=== PATIENT | female | born 1950 | race Hispanic/Latino ===

== ENCOUNTER 2018-10-08 11:14 | Emergency (ER) | payer OTHER ==
[~2018-10-08] VITALS: Ht 154.9 cm; Wt 69.4 kg
[2018-10-08 12:11] LABS: BASOPHILS # (AUTO) 0.1 (0.0-0.1); BASOPHILS % 0.6 % (0.0-1.0); EOSINOPHILS # (AUTO) 0.3 (0.0-0.4); EOSINOPHILS % 2.6 % (0.0-6.0); HEMATOCRIT 44.4 % (34.2-44.1); HEMOGLOBIN 14.3 g/dL (12.0-16.0); LYMPHOCYTES # (AUTO) 2.9 (1.0-3.2); LYMPHOCYTES % 28.6 % (18.0-39.1); MEAN CORPUSCULAR HEMOGLOBIN 28.4 pg (28-32); MEAN CORPUSCULAR HGB CONC 32.2 g/dL (31-35); MEAN CORPUSCULAR VOLUME 88.1 fL (81-99); MONOCYTES # (AUTO) 0.4 (0.2-0.8); MONOCYTES % 3.9 % (4.4-11.3); NEUTROPHILS # (AUTO) 6.5 (2.1-6.9); NEUTROPHILS % 63.9 % (38.7-80.0); PLATELET COUNT 322 x10e3/uL (140-360); RED BLOOD COUNT 5.04 x10e6/uL (3.6-5.1); RED CELL DISTRIBUTION WIDTH 14.7 % (11.7-14.4)
[2018-10-08 12:15] LABS: CLARITY,URINE HAZY (CLEAR); COLOR,URINE YELLOW (YELLOW); LEUKOCYTE ESTERASE ,URINE NEGATIVE (NEGATIVE)
[2018-10-08 12:16] LABS: BILIRUBIN,URINE NEGATIVE (NEGATIVE); KETONES,URINE NEGATIVE (NEGATIVE); NITRITE,URINE NEGATIVE (NEGATIVE); PROTEIN,URINE DIPSTICK 1+ (NEGATIVE); URINE UROBILINOGEN 0.2 mg/dL (0.2 - 1)
[2018-10-08 12:22] LABS: BACTERIA,URINE FEW /HPF; EPITHELIAL CELLS,URINE MODERATE /LPF; MUCUS,URINE FEW (RARE); RBC,URINE 0-5 /HPF (0-5)
[2018-10-08 12:25] LABS: ALANINE AMINOTRANSFERASE 32 IU/L (0-55); ALBUMIN 3.9 g/dL (3.5-5.0); ALKALINE PHOSPHATASE 101 IU/L (40-150); ANION GAP 14.9 mmol/L (8-16); BLOOD UREA NITROGEN 13 mg/dL (7-26); BUN/CREATININE RATIO 17 (6-25); CALCIUM 9.3 mg/dL (8.4-10.2); CARBON DIOXIDE 23 mmol/L (22-29); CHLORIDE 105 mmol/L (98-107); CREATININE, SERUM 0.76 mg/dL (0.57-1.11); EST GLOMERULAR FILTRATION RATE > 60 ML/MIN (60-); GLUCOSE 167 mg/dL (74-118); MAGNESIUM 2.1 MG/DL (1.3-2.1); POTASSIUM 3.9 mmol/L (3.5-5.1); SODIUM 139 mmol/L (136-145)
[2018-10-08] MEDS ORDERED: ONDANSETRON HCL INJ 2MG/ML 2ML 2 MG/ML VIAL IV ONE (13:00)
[2018-10-08 13:01] LABS: CREATINE KINASE 107 IU/L (29-168)
[2018-10-08] MEDS ORDERED: CEFDINIR300 MG PO (13:25)
== END 2018-10-08 14:08 | disposition home or self-care (01) ==
LOC: ER 11:14
DX: T78.40XA Allergy, unspecified, initial encounter (principal); F41.1 Generalized anxiety disorder; N30.90 Cystitis, unspecified without hematuria
CPT/HCPCS: 36415; 80053; 81001; 82550; 82553; 83735; 84484; 85025; 93005; 99284; J2405

== ENCOUNTER 2019-02-03 21:57 | Inpatient (IN) | payer MEDICARE, OTHER ==
[~2019-02-03] VITALS: Ht 154.9 cm; Wt 75.4 kg
[~2019-02-03 21:57] MED LIST: CEFDINIR300 MG PO
--- OUTSIDE RECORDS SUMMARY | 2019-02-03 21:59 | XMS REPORT ---
[facility] Address Unknown Phone Unavailable Care Team Providers Care M48/M60 Tank Driver Name Role Phone Unavailable Unavailable Payers Payer Name Policy Type Policy Number Effective Date Expiration Date Problems This patient has no known problems. Allergies, Adverse Reactions, Alerts Allergy Name Allergy Type Status Severity Reaction(s) Onset Date Inactive Date Treating Clinician Comments iodine DA Active MO 2018-01-29 00:00:00 iodine DA Active MO 2015-01-12 00:00:00 Medications This patient has no known medications. Results Test Description Test Time Test Comments Text Results Atomic Results Result Comments GASTRIC,BIOPSY 2018-02-03 15:57:00 RUN DATE: 02/03/18 [facility] - Lab PAGE 1 RUN TIME: 1557 Specimen Inquiry RUN USER: INTERFACE PATIENT: DEEPA CASAREZ LOC: [facility] U #: [id number] AGE/SX: 68/F ROOM: [facility] RE01/31/18REG DR: Hung Aguilar MD : 51 BED: A DIS: 02/02/18 STATUS: DIS IN TLOC: SPEC #: [id number] RECD: 02/02/18 STATUS: SOU RE #: [id number] SHARDA: 02/01/18-[address] [facility] [address]: Kofi Brantley MD ENTERED: 02/02/18 SP TYPE: GASTRIC BX OTHR DR: Erick Hardy MD, Harry Silvio MDORDERED: GROSS COPIES TO: Erick Hardy MD [address] [facility] [place] [address] Kofi Brantley MD [address] [address] PROCEDURES: GROSS (02/03/18-9292) TISSUES: 1. ANTRUM - BX 2. BODY BIOPSY OF STOMACH 3. ESOPHAGUS, NOS CLINICAL HISTORY COLLECTION DATE: 02/01/18 EPIGASTRIC PAIN, VOMITING FINAL DIAGNOSIS Antrum, biopsy: ACUTE GASTRITIS NO INTESTINAL METAPLASIA SEEN NEGATIVE FOR HELICOBACTER PYLORI, GIEMSA CONTROL STAINS APPROPRIATELY NEGATIVE FOR MALIGNANCY Body of stomach, biopsy: MILD CHRONIC INFLAMMATION, GASTRIC MUCOSA NO INTESTINAL METAPLASIA SEEN NEGATIVE FOR HELICOBACTER PYLORI, GIEMSA CONTROL STAINS APPROPRIATELY NEGATIVE FOR MALIGNANCY Esophagus, biopsy: REACTIVE EPITHELIAL CHANGES, SQUAMOUS ESOPHAGEAL MUCOSA CONTINUED ON NEXT PAGE RUN DATE: 02/03/18 [facility] PAGE 2 RUN TIME: 1557 Specimen Inquiry RUN USER: INTERFACE SPEC #: [id number] PATIENT: DEEPA CASAREZ #[id number] (Continued) FINAL DIAGNOSIS (Continued) NEGATIVE FOR METAPLASIA, DYSPLASIA, AND MALIGNANCY [facility]/paulino Horton [id number], [id number] MACROSCOPIC Specimen (1) is received in formalin, labeled with the patient's name, identified as "antrum bx", and consists of pink-santiago biopsy tissue measuring 0.35 cm, each, entirely submitted as (1) for H E and giemsa stains. Specimen (2) is received in formalin, labeled with the patient's name, identified as "body of stomach", and consists of three fragments of santiago biopsy tissue ranging from 0.3 to 0.6 cm each, entirely submitted as (2) for H E and giemsa stains. Specimen (3) is received in formalin, labeled with the patient's name, identified as "esophagus bx", and consists of light santiago to brown biopsy tissue measuring 0.5 cm in aggregate, entirely submitted as (3). GROSS PERFORMED AT [facility] [address] [place] [address], [place] [address] (p)[phone] MICROSCOPIC MICROSCOPIC PERFORMED AT [facility] All of the stains, including any controls performed, stain appropriately. [facility] [address] [facility] [place] [address] (P)[phone] PERFORMING SITE Diagnosis performed at: [facility], [address] [place] [address] CONTINUED ON NEXT PAGE RUN DATE: 02/03/18 [facility] - Lab PAGE 3 RUN TIME: 1557 Specimen Inquiry RUN USER: INTERFACE SPEC #: [id number] PATIENT: DEEPA CASAREZ #[id number] (Continued) Signed SIGNATURE ON FILE QuesadaСветлана M 02/03/18 1557 --------- END OF REPORT
[2019-02-03] MEDS ORDERED: METOPROLOL TARTRATE INJ 1 MG/ML VIAL IV ONE ×2 (22:30→23:00)
[2019-02-03 22:52] LABS: BASOPHILS # (AUTO) 0.1 (0.0-0.1); BASOPHILS % 0.7 % (0.0-1.0); EOSINOPHILS # (AUTO) 0.5 (0.0-0.4); EOSINOPHILS % 5.3 % (0.0-6.0); HEMATOCRIT 41.7 % (34.2-44.1); HEMOGLOBIN 13.4 g/dL (12.0-16.0); LYMPHOCYTES % 33.9 % (18.0-39.1); MEAN CORPUSCULAR HEMOGLOBIN 27.9 pg (28-32); MEAN CORPUSCULAR HGB CONC 32.1 g/dL (31-35); MEAN CORPUSCULAR VOLUME 86.9 fL (81-99); MONOCYTES # (AUTO) 0.7 (0.2-0.8); MONOCYTES % 7.3 % (4.4-11.3); NEUTROPHILS # (AUTO) 4.7 (2.1-6.9); NEUTROPHILS % 52.5 % (38.7-80.0); PLATELET COUNT 343 x10e3/uL (140-360); RED CELL DISTRIBUTION WIDTH 15.8 % (11.7-14.4)
--- NOTE | 2019-02-03 22:53 | Diagnostic Imaging Report ---
EXAMINATION: Head CT without contrast. HISTORY:Right eye drooping. COMPARISON:None. TECHNIQUE: Multidetector axial images were obtained from the foramen magnum to the vertex without contrast. The images were reconstructed using brain and bone algorithms. Thin section brain images were reformatted into coronal and sagittal planes. Dose modulation, iterative reconstruction, and/or weight based adjustment of the mA/kV was utilized to reduce the radiation dose to as low as reasonably achievable. Intravenous contrast: None IMAGE QUALITY: Suboptimal evaluation due to motion related artifacts. FINDINGS: Skull/scalp: No lytic or blastic. lesions. No surgical changes. Parenchyma: Nonspecific few, scattered supratentorial white matter hypodensity are likely related to small vessel ischemic changes. No acute hemorrhage, mass or acute major vascular territorial infarct. Arteries: No density suggestive of thrombosis. Dural sinuses: No abnormal density suggestive of thrombosis. Ventricles: No hydrocephalus or displacement. Extra-axial spaces: No abnormal density. Brain volume: Normal for age. Craniocervical junction: No mass, Chiari malformation, or basilar invagination. Sella: No mass. Paranasal/mastoid sinuses: Mild mucosal thickening in left sphenoid sinus. IMPRESSION: Suboptimal evaluation due to motion artifacts, despite the limitation no gross acute intracranial abnormality. Mild supratentorial white matter microvascular ischemic changes. Signed by: Dr. Betty Baker M.D. on 02/03/2019 10:50 PM
[2019-02-03 22:58] LABS: INR 0.83; PROTHROMBIN TIME 11.9 seconds (11.9-14.5)
[2019-02-03] MEDS ORDERED: METOPROLOL TARTRATE INJ 1 MG/ML VIAL ONE (22:58)
[2019-02-03 23:06] LABS: ALANINE AMINOTRANSFERASE 39 IU/L (0-55); ALBUMIN 3.8 g/dL (3.5-5.0); ALBUMIN/GLOBULIN RATIO 0.9 (0.8-2.0); ALKALINE PHOSPHATASE 146 IU/L (40-150); ANION GAP 15.9 mmol/L (8-16); BLOOD UREA NITROGEN 18 mg/dL (7-26); BUN/CREATININE RATIO 23 (6-25); CALCIUM 9.9 mg/dL (8.4-10.2); CARBON DIOXIDE 25 mmol/L (22-29); CHLORIDE 107 mmol/L (98-107); CREATININE, SERUM 0.79 mg/dL (0.57-1.11); EST GLOMERULAR FILTRATION RATE > 60 ML/MIN (60-); GLUCOSE 127 mg/dL (74-118); POTASSIUM 3.9 mmol/L (3.5-5.1); SODIUM 144 mmol/L (136-145)
--- NOTE | 2019-02-03 23:25 | NUR ---
PT DENIES ANY PAIN OR DISCOMFORT, REMAINS AAOX3, ATTACHED TO BS/CARDIAC MONITORS; DISPO ADMIT
[2019-02-03] MEDS ORDERED: SODIUM CHLORIDE 0.9% 100 ML 100 ML ONE (23:31)
[2019-02-03] MEDS ORDERED: GADOBENATE DIMEGLUMINE 1 ML IV ONE (23:31)
[2019-02-04] VITALS (9 sets, daily range): BP systolic 131–196; BP diastolic 57–88
[2019-02-04] MEDS ORDERED: METOPROLOL TARTRATE 25 MG TAB PO ONE (00:45)
--- NOTE | 2019-02-04 00:51 | Diagnostic Imaging Report ---
History: Dizziness, right eye droop for 2 days. Comparison studies: CT brain from earlier the same day. Technique: Pre-contrast: Sagittal T2; axial T1, T2, GRE, DWI, T2 FLAIR Post-contrast: axial , sagittal and coronal T1. Intravenous contrast: 14 cc of MultiHance Findings: Scalp: No abnormal signal. No masses. Bone marrow: Normal in signal intensity. Brain sulci: Appropriate for age. Ventricles: Normal in size . No hydrocephalus. Parenchyma: Focal restricted diffusion associated with T2/FLAIR hyperintensity in right paramedian aspect of the midbrain at the level of superior colliculus in the right periaqueductal poole matter, represents acute lacunar infarct. Nonspecific bilateral frontoparietal confluent and patchy periventricular, subcortical and deep white matter T2/FLAIR hyperintense foci are likely related to small vessel ischemic changes. No masses or acute hemorrhage. No abnormal enhancement. Suprasellar region: No abnormalities. Craniocervical junction: Patent foramen magnum. No Chiari one malformation. Vessels: Normal flow-voids in the arteries and sinuses. Incidental findings: Mild T2 hyperintense mucosa in left sphenoid sinus. IMPRESSION: 1. Acute lacunar infarct in the midbrain (right periaqueductal poole matter in the region of the oculomotor nucleus). 2. Mild supratentorial white matter microvascular ischemic changes. Findings discussed with ER physician Dr. Soria by phone at 12:40 AM on 02/04/2019. Signed by: Dr. Betty Baker M.D. on 02/04/2019 12:48 AM
--- NOTE | 2019-02-04 01:45 | NUR ---
Patient's blood pressure elevated on arrival to floor. Oral antihypertensives given in ED just prior to patient arrival on unit.
[2019-02-04] MEDS ORDERED: OMEPRAZOLE40 MG (04:09)
[2019-02-04] MEDS ORDERED: SYMBICORT 16010.2 GM (04:11)
[2019-02-04] MEDS ORDERED: ATORVASTATIN CA10 MG PO (04:12)
[2019-02-04] MEDS ORDERED: HYDRALAZINE HCL 20 MG/ML VIAL IV PRN (05:30)
[2019-02-04] MEDS ORDERED: LOPRESSOR25 MG PO (05:37)
[2019-02-04] MEDS ORDERED: ASPIRIN CHEW81 MG PO (05:37)
[2019-02-04 06:15] LABS: CHOL/HDL RATIO 3.1 (3.0-3.6); CHOLESTEROL 149 MD/DL (0-199); HDL CHOLESTEROL 48 MG/DL (40-60); LDL CHOLESTEROL 73 MG/DL (60-130); TRIGLYCERIDES 141 MG/DL (0-149)
[2019-02-04 06:27] LABS: B-TYPE NATRIURETIC PEPTIDE2 11.3 pg/mL (0-100); BASOPHILS # (AUTO) 0.1 (0.0-0.1); BASOPHILS % 0.6 % (0.0-1.0); EOSINOPHILS # (AUTO) 0.5 (0.0-0.4); EOSINOPHILS % 6.1 % (0.0-6.0); HEMATOCRIT 37.5 % (34.2-44.1); LYMPHOCYTES # (AUTO) 2.9 (1.0-3.2); LYMPHOCYTES % 36.2 % (18.0-39.1); MEAN CORPUSCULAR HEMOGLOBIN 27.9 pg (28-32); MEAN CORPUSCULAR VOLUME 87.2 fL (81-99); MONOCYTES # (AUTO) 0.6 (0.2-0.8); MONOCYTES % 6.9 % (4.4-11.3); NEUTROPHILS % 49.8 % (38.7-80.0); PLATELET COUNT 292 x10e3/uL (140-360)
[2019-02-04 06:40] LABS: FREE T4 (FREE THYROXINE) 0.96 ng/dL (0.8-1.8); THYROID STIMULATING HORMONE 2.934 uIU/mL (0.350-4.940)
[2019-02-04 07:00] LABS: ALANINE AMINOTRANSFERASE 31 IU/L (0-55); ALBUMIN 3.2 g/dL (3.5-5.0); ALBUMIN/GLOBULIN RATIO 0.9 (0.8-2.0); ALKALINE PHOSPHATASE 125 IU/L (40-150); ANION GAP 13.8 mmol/L (8-16); BLOOD UREA NITROGEN 18 mg/dL (7-26); BUN/CREATININE RATIO 25 (6-25); CALCIUM 9.1 mg/dL (8.4-10.2); CARBON DIOXIDE 27 mmol/L (22-29); CHLORIDE 107 mmol/L (98-107); CREATININE, SERUM 0.73 mg/dL (0.57-1.11); EST GLOMERULAR FILTRATION RATE > 60 ML/MIN (60-); GLUCOSE 134 mg/dL (74-118); POTASSIUM 3.8 mmol/L (3.5-5.1); SODIUM 144 mmol/L (136-145)
[2019-02-04] MEDS: ASPIRIN 81 MG CHEW TAB PO SCH (08:27)
[2019-02-04] MEDS: PANTOPRAZOLE SOD 40 MG TABEC PO SCH (08:27)
--- NOTE | 2019-02-04 08:53 | NUR ---
PT RESTING. ABLE TO MAKE NEEDS KNOWN. PT RIGHT EYE IS DROOPED. STATES SHE CAN SEE OUT OF IT AND NO PAIN, IS ABLE TO BLINK. BUT IS UNEVEN WITH OTHER EYE, CAUSING BLURRY FEELING.
[2019-02-04] MEDS ORDERED: METOPROLOL TARTRATE 25 MG TAB PO SCH (09:00)
--- NOTE | 2019-02-04 13:16 | NUR ---
DR RAMOS ON UNIT, AWARE OF PT BP
--- NOTE | 2019-02-04 15:35 | NUR ---
Received order for outpatient occupational therapy. Spoke to pt and family at bedside. They gave choice for [facility]. Choice letter signed and placed in chart. Copy to pt's son. Pt states she prefers the [facility] location at [address] [place] [address]. Referral was faxed to [phone] Contact information for [facility] given to pt's son and instructed him to follow up with them on Wednesday. He acknowledged.
[2019-02-04] MEDS: ENOXAPARIN SOD INJ 40 MG/0.4 ML SYR SC SCH (16:31)
[2019-02-04] MEDS ORDERED: ATORVASTATIN 10 MG TAB PO SCH (21:00)
--- NOTE | 2019-02-04 21:29 | Consultation ---
DATE OF CONSULTATION: 02/04/2019 Neurology Consult Note HISTORY OF PRESENT ILLNESS: Ms. Pond is a 69-year-old right-hand dominant woman with past medical history significant for hyperlipidemia and recently diagnosed hypertension, admitted to [facility] on February 03, 2019, following a stroke. Approximately, 3 days prior to admission, the patient experienced the abrupt onset of binocular diplopia. Ms. Pond reports anything she looked that was duplicated on the diagonal. The diplopia resolved with covering one eye or the other. At that time, Ms. Pond noted drooping of the right eyelid. She did not notice impairments of eye movement. Along with binocular diplopia, the patient reports poor balance, impairment of gait, and dizziness, which is further described as an unsteady sensation. The patient does not report dysarthria, aphasia, facial droop, hemiparesis, hemihypesthesia, or confusion associated with the above symptoms. Ms. Pond does have a history of chronic intermittent vertigo. She assumed her symptoms were due to an exacerbation of vertigo and would spontaneously resolve after a day or two. When the symptoms did not improve, the patient proceeded to a [facility] for further evaluation of her symptoms. Upon arrival in the [facility], the patient was afebrile with a markedly elevated blood pressure of 222/92 mmHg and a pulse of 91 beats per minute. The patient's physical examination was significant for dysconjugate gaze with extraocular movements not intact in the right eye. While at the [facility], the patient underwent a MRI of the brain without contrast, which revealed an acute ischemic stroke in the midbrain. More specifically, the ischemic infarct was located in the right periaqueductal poole matter near the oculomotor nucleus. Ms. Pond was subsequently transported to [facility], where she was directly admitted as an inpatient for further evaluation and treatment of her symptoms. Ms. Pond does not routinely take an antiplatelet or anticoagulant medication. REVIEW OF SYSTEMS: Binocular diplopia, impairment of balance and gait, dizziness. Otherwise, a 12- point review of systems is negative. PAST MEDICAL HISTORY: Hypertension, hyperlipidemia, asthma, and gastroesophageal reflux disease. PAST SURGICAL HISTORY: Hysterectomy, lumpectomy behind the left ear, and tonsillectomy. PAST HOSPITALIZATIONS: Surgeries/procedures as listed, Emergency Center at [facility] for an allergic reaction. FAMILY MEDICAL HISTORY: The patient's mother is ; she had hypertension, diabetes mellitus, and coronary artery disease with a myocardial infarction. The patient has one son with diabetes mellitus. SOCIAL HISTORY: Ms. Pond is single. She is retired. She does not report current or prior tobacco, alcohol, or recreational drug use. HOME MEDICATIONS: Atorvastatin 10 mg by mouth at bedtime daily, Symbicort 160- 4.5 inhaled twice daily, omeprazole 40 mg by mouth daily. Of note, the patient was recently prescribed losartan for hypertension. However, she has not begun treatment with this medication. ALLERGIES: ALEVE, IBUPROFEN. NO KNOWN FOOD ALLERGIES. NO KNOWN ALLERGIES TO LATEX. THE PATIENT DOES HAVE A DOCUMENTED ALLERGY TO IODINE. PHYSICAL EXAMINATION: VITAL SIGNS: Height 61 inches, weight 153 pounds, BMI 28.9 kg/m2, blood pressure 187/83 mmHg, pulse 60 beats per minute, respiratory rate 20 breaths per minute, and oxygen saturation 97% on room air. GENERAL: The patient is awake and alert, does not appear distressed. Overweight. HEENT: Normocephalic, atraumatic. Pupils are unequal and round. The left pupil is briskly reactive to light. While the right pupil is sluggishly reactive to light. Moist mucous membranes. NECK: Supple. No appreciable thyromegaly. No appreciable carotid bruits. CARDIOVASCULAR: S1, S2, regular rate and rhythm. No murmurs, rubs, or gallops. RESPIRATORY: Clear to auscultation bilaterally. No wheezes, rhonchi, or rales. EXTREMITIES: The skin is warm and dry. No clubbing, cyanosis, or edema. The posterior tibial and dorsalis pedis pulses are 2+ and symmetric. SKIN: No rashes or lesions. NEUROLOGIC: Memory/Attention: The patient is awake and alert, oriented to person, place, time, and situation. Cranial Nerves: Cranial nerve I - not tested. Cranial nerve II, III, IV, and - the left pupil is round and briskly reactive to light (from 4 mm to 2 mm). The right pupil is 5 mm and sluggishly reactive to light. Extraocular movements are intact with the exception of a total right cranial nerve III palsy. No nystagmus. Cranial nerve V - sensation is to light touch and pinprick is intact in the bilateral V1 through V3 distributions. Strength in the temporalis and masseter muscles is within normal limits. Cranial nerve VII - the face is symmetric as are all facial movements. Strength is within normal limits. Cranial nerve VIII - hearing is intact to finger rub bilaterally. Cranial nerve IX, X - the soft palate elevates equally and symmetrically. Cranial nerve XI - normal strength of the bilateral sternocleidomastoid and trapezius muscles. Cranial nerve XII - the tongue protrudes midline and moves symmetrically from syve-hz-afgs. Strength: Bulk is normal. Strength is 5/5 in the bilateral deltoids, biceps, triceps, wrist flexors and extensors, finger flexors and extensors, intrinsic hand muscles, hip flexors, knee flexors and extensors, ankle dorsiflexion and plantar flexion, and intrinsic foot muscles. Tone is normal. DTRs: Deep tendon reflexes are 2+ and symmetric at the triceps, biceps, brachioradialis, patellas, and Achilles. Plantar responses are flexor bilaterally. Sensation: Sensation is intact to light touch and pinprick in both arms and both legs. Cerebellar: Ljsssq-rsei-otoajo and heel-velazco movements are intact without dysmetria or other impairment. Gait: Deferred. Speech: Spontaneous speech is normal without appreciable dysarthria or aphasia. Repetition is intact. Involuntary movements: None. Pronator Drift: None. LABORATORY DATA: A comprehensive metabolic panel is significant only for an elevated serum glucose of 134 and an albumin of 3.2. Total cholesterol 149, triglycerides 141, LDL cholesterol 73, HDL cholesterol 48. TSH 2.934, free T4 0.96. Hemoglobin A1c 6.1. B-natriuretic peptide 11.3. The CBC with differential and platelets reveals a white blood cell count of 8.07 with mild eosinophilia. The hemoglobin and hematocrit are 12.0 and 37.5, respectively. The platelet count is 292. The coagulation profile is within normal limits. DIAGNOSTIC STUDIES: CT of the brain without contrast on 02/03/2019: On my review, there is no evidence of recent large territorial ischemia or hemorrhage. There is no evidence of remote large territorial ischemia or hemorrhage. Cerebral volumes are appropriate for age. Their findings compatible with mild chronic small vessel ischemic disease. MRI of the brain without contrast on 02/03/2019: On my review, there is an acute lacunar infarct in the midbrain. More specifically, the lacunar infarct is in the right periaqueductal poole matter near the oculomotor nucleus. There is no evidence of remote large territorial ischemia or hemorrhage. Cerebral volumes are appropriate for age. Their findings compatible with [id number] chronic small-vessel ischemic disease. Electrocardiogram pending. Echocardiogram pending. Bilateral carotid artery ultrasound with Doppler on 02/04/2019: There is atherosclerosis without hemodynamically significant stenosis at the right carotid bulb. Flow is antegrade in the bilateral vertebral arteries. ASSESSMENT AND PLAN: Ms. 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 Specifically, the lacunar stroke is located in the right periaqueductal poole matter near the oculomotor nucleus. Other than deficits compatible with the cranial nerve III palsy, the patient's neurological examination is nonfocal. Her laboratory data and other diagnostic studies have been reviewed and are documented above. RECOMMENDATIONS: Are as follows: 1. An electrocardiogram and echocardiogram will be ordered to complete stroke evaluation. 2. The patient will be placed on telemetry to monitor for a paroxysmal arrhythmia predisposing her 2 cardiovascular events. 3. Continue aspirin 81 mg by mouth daily for stroke prophylaxis. 4. Allow permissive hypertension following a stroke. At present, the patient's goal systolic blood pressure is 160 to 200 mmHg. The goal diastolic blood pressure is 70 to 110 mmHg. Continue p.r.n. hydralazine. Monitor vital signs per unit protocol. The patient's blood pressure may be gradually normalized beginning on Tuesday, February 05, 2019. The goal blood pressure prior to discharge is less than 140/90 mmHg. 5. The patient's goal total cholesterol is less than 200 with LDL of less than 70. Ms. Pond has reached her cholesterol goals. Continue treatment with her home medication of atorvastatin 10 mg by mouth at bedtime daily. 6. The patient's goal hemoglobin A1c is less than 7.0. The patient is at goal. No further treatment is recommended. 7. Gastrointestinal prophylaxis with Protonix 40 mg by mouth daily. Deep venous thrombosis prophylaxis with Lovenox 40 mg subcutaneously daily. 8. As an outpatient, the patient will need a referral to Occupational Therapy at [facility] for treatment of her cranial nerve III palsy. In the interim, the patient should patch alternating eyes daily. Thank you for this consultation. I will continue to follow the patient while she remains in the hospital. TIME SPENT: 70 minutes. Liliana Hernandez MD CP/RICH /[id number] MTDD
[2019-02-05] VITALS: BP 148/60
[2019-02-05 04:00] VITALS: BP 140/68
[2019-02-05 07:27] VITALS: BP 140/68
[2019-02-05] MEDS: ASPIRIN 81 MG CHEW TAB PO SCH (08:56)
[2019-02-05] MEDS: PANTOPRAZOLE SOD 40 MG TABEC PO SCH (08:57)
[2019-02-05 12:07] VITALS: BP 172/77
--- NOTE | 2019-02-05 16:11 | NUR ---
reviewed dc instructions with pt, verbalized understanding. pending ride
[2019-02-05] MEDS: ENOXAPARIN SOD INJ 40 MG/0.4 ML SYR SC SCH (16:14)
[2019-02-05 17:00] VITALS: BP 166/72
--- NOTE | 2019-02-06 09:00 | NUR ---
Received call from [facility]. States they need physician signature for referral. She faxed referral form. Informed Dr. Hernandez that we need signature for outpatient referral. States CM can fax form to her office. [facility] faxed form to Dr. Hernandez's office at .
--- NOTE | 2019-02-07 13:41 | NUR ---
Received signature for referral form for outpatient therapy from Dr. Hernandez. Signed order for [facility] Outpatient therapy services faxed to [phone].
--- NOTE | 2019-02-08 09:04 | Discharge Summary ---
ADMISSION DIAGNOSES: 1. Right eye ptosis with diplopia secondary to cerebrovascular accident. 2. Hypertension. 3. Hypertensive emergency. 4. Hyperlipidemia. 5. Asthma. DISCHARGE DIAGNOSES: 1. Right eye ptosis with diplopia secondary to cerebrovascular accident. 2. Hypertension. 3. Hypertensive emergency. 4. Hyperlipidemia. 5. Asthma. 6. Cranial nerve III palsy. 7. Rule out urinary tract infection. 8. Acute lacunar infarct in the midbrain. PAST MEDICAL HISTORY: Hypertension, hyperlipidemia, asthma. PAST SURGICAL HISTORY: Hysterectomy. FAMILY HISTORY: The patient's son has diabetes. SOCIAL HISTORY: Noncontributory. HOSPITAL COURSE: This 69-year-old female admits with complaints of double vision that began 3 days ago. She noticed her right eyelid slowly closing over the last few days as well. In the ER, her double vision resolved. She denies focal weakness, dizziness, trouble with ambulation, and dysphagia. On admission, CT of the brain was done, which showed mild supratentorial white matter microvascular ischemic changes. MRI of the brain showed acute ocular infarct in the midbrain. Carotid Doppler showed no significant stenosis. Cardiology was consulted, who diagnosed the patient with right cranial nerve III palsy secondary to an ischemic stroke in the midbrain. The patient was started on metoprolol and aspirin daily and she is already taking Lipitor daily. The patient was given a referral to [facility] for rehab. Her blood pressure is under control on current medications. She will follow up with primary care in 1 to 2 weeks and [facility] as discussed. The patient understands discharge instructions and agrees to plan. Vital signs stable, the patient afebrile. Dictated by Tiffanie Tomas NP MD DONA Christianson/RICH /[id number]
== END 2019-02-05 17:59 | disposition home or self-care (01) | DRG 65 ==
LOC: ER 21:57 → ERHOLD 23:48 → MED/SURG 02-04 01:26
PROVIDERS: ADMIT Internal Medicine; ATTEND Internal Medicine
DX: I63.81 Other cerebral infarction due to occlusion or stenosis of small artery (principal); I16.1 Hypertensive emergency; N39.0 Urinary tract infection, site not specified; H53.2 Diplopia; H02.401 Unspecified ptosis of right eyelid; E78.5 Hyperlipidemia, unspecified; J45.909 Unspecified asthma, uncomplicated; H49.01 Third [oculomotor] nerve palsy, right eye; Z91.041 Radiographic dye allergy status; K21.9 Gastro-esophageal reflux disease without esophagitis
CPT/HCPCS: 36415; 70450; 70553; 80053; 80061; 83036; 83880; 84439; 84443; 85025; 85610; 93005; 93306; 93880; 96374; 99284; J0360; J1650

== ENCOUNTER → 2019-07-18 | Day surgery (SDC) | payer OTHER ==
[2019-07-12 14:25] LABS: BASOPHILS # (AUTO) 0.1 (0.0-0.1); BASOPHILS % 0.7 % (0.0-1.0); EOSINOPHILS # (AUTO) 0.3 (0.0-0.4); EOSINOPHILS % 3.5 % (0.0-6.0); HEMATOCRIT 37.9 % (34.2-44.1); HEMOGLOBIN 12.4 g/dL (12.0-16.0); LYMPHOCYTES # (AUTO) 2.1 (1.0-3.2); LYMPHOCYTES % 26.5 % (18.0-39.1); MEAN CORPUSCULAR HEMOGLOBIN 28.4 pg (28-32); MEAN CORPUSCULAR HGB CONC 32.7 g/dL (31-35); MEAN CORPUSCULAR VOLUME 86.9 fL (81-99); MONOCYTES # (AUTO) 0.6 (0.2-0.8); MONOCYTES % 6.8 % (4.4-11.3); PLATELET COUNT 319 x10e3/uL (140-360); RED BLOOD COUNT 4.36 x10e6/uL (3.6-5.1); RED CELL DISTRIBUTION WIDTH 14.9 % (11.7-14.4)
[~2019-07-18] MED LIST changes: +AMLODIPINE BESY10 MG PO; +ASPIRIN CHEW81 MG PO; +ATORVASTATIN CA10 MG PO; +FENTANYL CITRATE/PF 100MCG/2 ML INJ ONE; +LIDOCAINE HCL 2% LOCAL INJ 5 ML SDV VIAL INJ ONE; +LOPRESSOR25 MG PO; +LOSARTAN POTAS100 MG PO; +OMEPRAZOLE40 MG; +PROPOFOL IV EMULSION 10 MG/ML 20 ML VIAL ONE; +SINGULAIR10 MG PO; +SYMBICORT 16010.2 GM; +VIT D2 PO
--- OUTSIDE RECORDS SUMMARY | 2019-07-18 10:31 | XMS REPORT ---
Author Author Admin, [place] Organization Unknown Address Unknown Phone Unavailable PROBLEMS Condition Status Date Provider Notes Onychomycosis, toenails active Angeli Vick Colon cancer screening active Angeli Vick Mammogram yearly screening active Angeli Vick Annual exam active Angeli Vick Prediabetes active Angeli Vick Hyperlipidemia active Angeli Vick Hx of asthma active Angeli Vick History of stroke active [place] Ptosis of eyelid, right active [place] Essential hypertension active [place] ENCOUNTERS Date Type Provider Location Encounter Diagnosis - Ambulatory Encounter [facility] Encounter Angeli Vick Angeli Vick [facility] Practice UNK - Ambulatory Encounter Angeli Vick Angeli Vick Lanette Mena [facility] PrediabetesAnnual examMammogram yearly screeningColon cancer screeningOnychomycosis, toenails - Ambulatory Encounter Fax Status [facility] Services UNK - Ambulatory Encounter Fax Status [facility] Services UNK - Ambulatory Encounter Lanette Mena [facility] UNK - Ambulatory Encounter Angeli Vick Angeli Vick [facility] Practice UNK - Ambulatory Encounter Angeli Vick Angeli Vick [facility] UNK - Ambulatory Encounter Angeli Vicklon Mena [facility] UNK - Ambulatory Encounter Angeli Vicklon Hickman [facility] UNK - Ambulatory Encounter Angeli Mena [facility] Hx of asthmaHyperlipidemia - Ambulatory Encounter Janelle Mclean [facility] UNK - Ambulatory Encounter Fax Status [facility] Services UNK - Ambulatory Encounter Fax Status [facility] Services UNK - Ambulatory Encounter Fax Status [facility] Services UNK - Ambulatory Encounter [place] [facility] UNK - Ambulatory Encounter [place] [facility] Essential hypertensionPtosis of eyelid, rightHistory of stroke VITAL SIGNS No Information Available ALLERGIES Allergy Name Onset Date Reaction Criticality Status ZYRTEC High Criticality active IBUPROFEN High Criticality active IODINE High Criticality active REASON FOR REFERRAL Start Date - End Date Service - Mammogram - Screening - Other Referral - External - Ophthalmology - External RESULTS Date Observation Value Provider Reference Range Interpretation Location hemoglobin A1C, blood, as % of total hemoglobin 6.3 % [facility] 4.8-5.6 High " LDL cholesterol, serum 58 mg/dL [facility] 0-99 " very low density lipoproteins 24 mg/dL [facility] 5-40 " HDL cholesterol, serum 53 mg/dL [facility] >39 " triglyceride, serum, fasting 120 mg/dL [facility] 0-149 " cholesterol, serum 135 mg/dL [facility] 100-199 " alanine aminotransferase (SGPT), serum 34 1/L [facility] 0-32 High " aspartate aminotransferase (SGOT), serum 28 1/L [facility] 0-40 " alkaline phosphatase, serum 115 1/L [facility] 39-117 " bilirubin, serum, total 0.5 mg/dL [facility] 0.0-1.2 " albumin/globulin ratio, serum 1.4 [facility] 1.2-2.2 " globulin, serum 3.1 [facility] 1.5-4.5 " albumin, serum 4.4 g/dL [facility] 3.6-4.8 " protein, total, serum 7.5 g/dL [facility] 6.0-8.5 " calcium, serum 9.2 mg/dL [facility] 8.7-10.3 " carbon dioxide, venous blood 26 mmol/L [facility] 20-29 " chloride, serum 99 mmol/L [facility] 96-106 " potassium, serum 4.0 mmol/L [facility] 3.5-5.2 " sodium, serum 141 mmol/L [facility] 134-144 " urea nitrogen/creatinine ratio, serum 31 [facility] 12-28 High " eGFR if 114 mL/min/((173/100).m2) [facility] >59 " Estimated Glomerular Filtration Rate (calc) 98 mL/min/((173/100).m2) [facility] >59 " creatinine, serum 0.52 mg/dL [facility] 0.57-1.00 Low " urea nitrogen, blood 16 mg/dL [facility] 8-27 " blood glucose, random 100 mg/dL [facility] 65-99 High " immature granulocytes, percentage of total cells, blood 0 % [facility] Not Estab. " basophil count, absolute 0.0 x10E3/uL [facility] 0.0-0.2 " Eosinophil Absolute Count 0.2 X10E3/UL [facility] 0.0-0.4 " monocyte count, blood, automated 0.5 X10E3/UL [facility] 0.1-0.9 " lymphocyte count, blood, automated 2.5 X10E3/UL [facility] 0.7-3.1 " Absolute Neutrophils 6.2 X10E3/UL [facility] 1.4-7.0 " basophils as percent of blood leukocytes 0 % [facility] Not Estab. " eosinophils as percent of blood leukocytes 2 % [facility] Not Estab. " monocytes as percent of blood leukocytes 5 % [facility] Not Estab. " lymphocytes as percent of blood leukocytes 26 % [facility] Not Estab. " neutrophils as percent of blood leukocytes 67 % [facility] Not Estab. " platelet count 320 X10E3/UL [facility] 150-450 " red blood cell distribution width 16.0 % [facility] 12.3-15.4 High " mean corpuscular hemoglobin concentration, RBC 31.4 G/DL [facility] 31.5-35.7 Low " mean corpuscular hemoglobin, RBC 27.6 pg [facility] 26.6-33.0 " mean corpuscular volume, RBC 88 fL [facility] 79-97 " hematocrit, blood 42.0 % [facility] 34.0-46.6 " hemoglobin, blood 13.2 g/dL [facility] 11.1-15.9 " erythrocyte (RBC) count 4.79 X10E6/UL [facility] 3.77-5.28 " leukocyte count, blood 9.5 X10E3/UL [facility] 3.4-10.8 HISTORY OF IMMUNIZATIONS Date Vaccine Dose Lot Number Status Fluzone Quadrivalent IM PF 0.5 ML [facility] [id number] Sanofi Pasteur 0.5 mL [id number] completed HISTORY OF MEDICATION USE Medication Instructions Dates Provider Comments LAMISIL 250 MG ORAL TABLET 1 by mouth every day Angeli Vick FLUTICASONE PROPIONATE 50 MCG/ACT NASAL SUSPENSION 2 sprays in each nostril once daily Angeli Vick MONTELUKAST SODIUM 10 MG ORAL TABLET one tablet once daily Angeli Vick #30, 30 days supply, Filled 01/20/2019 SYMBICORT 160-4.5 MCG/ACT INHALATION AEROSOL TAKE 2 PUFFS BY MOUTH TWICE A DAY Angeli Vick #10, 30 days supply, Prescribed by DESHAWN TORRES, Filled 01/13/2019 OMEPRAZOLE 40 MG ORAL CAPSULE DELAYED RELEASE TAKE ONE CAPSULE BY MOUTH TWICE A DAY Angeli Hickman #180, 90 days supply, Prescribed by ROSELYN MANE, Filled 12/28/2018 ASPIRIN 81 MG ORAL TABLET DELAYED RELEASE TAKE 1 TABLET BY MOUTH EVERY DAY Angeli Hickman #30, 30 days supply, Prescribed by TRINITY KEYS, Filled 02/05/2019 ATORVASTATIN CALCIUM 40 MG ORAL TABLET one tablet once daily Angeli Hickman METOPROLOL TARTRATE 25 MG ORAL TABLET 1 by mouth twice a day [place] AMLODIPINE BESYLATE 10 MG ORAL TABLET 1 tab by mouth daily [place] LOSARTAN POTASSIUM 50 MG ORAL TABLET 1 By Mouth once a day [place] SOCIAL HISTORY Date Observation Value Provider family support single Gettng Angeli Hickman " drug use, illicit Never Lanette Mena " alcohol use Never Lanette Mena " is there any chance that you could be ? No Lanette Mena " passive cigarette smoke exposure No Lanette Mena " smoking status never smoker Lanette Mena " Exercise Program Referral T Lanette Mena " Weight Management Counseling Provided T Lanette Mena " Nutrition intervention T Lanette Mena social history reviewed E&M reviewed today Lyndsey Read " passive cigarette smoke exposure No Lyndsey Read " smoking status never smoker Lyndsey Read time of call 02/10/2019 2:17 PM Suraj Lechuga drug use, illicit Never Lyndsey Read " alcohol use Never Lyndsey Read " is there any chance that you could be ? No Lyndsey Read " passive cigarette smoke exposure No Lyndsey Read " smoking status never smoker Lyndsey Read FUNCTIONAL STATUS No Information Available MENTAL STATUS Date Observation Value Provider assessment of judgment and insight E&M intact Angeli Hickman " mental status examination: orientation E&M oriented to time, place, and person Angeli Hickman " assessment of mood and affect E&M no depression, anxiety, or agitation Angeli Hickman mental status examination: orientation E&M oriented to time, place, and person Angeli Hickman " assessment of mood and affect E&M no depression, anxiety, or agitation Angeli Hickman assessment of judgment and insight E&M intact [place] " mental status examination: orientation E&M oriented to time, place, and person [place] " assessment of mood and affect E&M no depression, anxiety, or agitation [place] " Generalized Anxiety Disorder Questionnaire - Question 2 0 Lyndsey Read " Generalized Anxiety Disorder Questionnaire - Question 1 0 Lyndsey Read MEDICAL EQUIPMENT No Information Available FAMILY HISTORY No Information Available INSURANCE PROVIDERS No Information Available ADVANCE DIRECTIVES No Information Available TREATMENT PLAN Date Name FIT- Fecal immunoassay test Hemoglobin A1c Lipid Panel Comp. Metabolic Panel (14) CBC With Differential/Platelet - - - First Vx - Ix admin via ID IM or jet injects without counseling by physician Fluzone Quadrivalent IM Prefilled Syringe 0.5 mL (PF) Vaccines Ordered - Print Consent/Declination Forms Est Patient Well Exam (65 & Over) - 00890 Ofc Vst, Est Level III New Patient Detailed - 87264 HISTORY OF PROCEDURES Procedure Date Procedure Name Provider Procedure Notes Status First Vx - Ix admin via ID IM or jet injects without counseling by physician Angeli Hickman completed Fluzone Quadrivalent IM Prefilled Syringe 0.5 mL (PF) Angeli Hickman completed Vaccines Ordered - Print Consent/Declination Forms Angeli Hickman completed GOALS No Information Available HEALTH CONCERNS No Information Available
--- OUTSIDE RECORDS SUMMARY | 2019-07-18 10:31 | XMS REPORT ---
Author Author Admin, [place] Organization Unknown Address Unknown Phone Unavailable PROBLEMS [...] Provider Location Encounter Diagnosis - Ambulatory Encounter Mony Roth [facility] Adult Medicine UNK - Ambulatory Encounter Mony Roth [facility] Adult Medicine UNK - Ambulatory Encounter Angeli Vick Angeli Vick [facility] Family Practice UNK - Ambulatory Encounter Angeli Vick Angeli Vick [facility] Practice UNK - Ambulatory Encounter Angeli Vick Angeli Vick [facility] Family Practice UNK - Ambulatory Encounter Angeli Vick Angeli Vick Lanette Mena [facility] Practice PrediabetesAnnual examMammogram yearly screeningColon cancer screeningOnychomycosis, toenails - Ambulatory Encounter Fax Status [facility] Services UNK - Ambulatory Encounter Fax Status [facility] UNK - Ambulatory Encounter Lanette Mena [facility] Practice UNK - Ambulatory Encounter Angeli Vick Hickman [facility] Practice UNK - Ambulatory Encounter Angeli Vick Angeli Hickman [facility] Practice UNK - Ambulatory Encounter Angeli Vick [facility] UNK - Ambulatory Encounter Angeli Vick Angeli Hickman [facility] Practice UNK - Ambulatory Encounter Angeli Vick Angeli Vick Read Lanette Mena [facility] Hx of asthmaHyperlipidemia - [facility]ulatory Encounter Fax Status [facility] Services UNK - Ambulatory Encounter Fax Status [facility] Services UNK - Ambulatory Encounter Fax Status [facility] Services UNK - Ambulatory Encounter [place] [facility] Practice UNK - Ambulatory Encounter [place] [facility] Essential hypertensionPtosis of eyelid, rightHistory of [...] Status Fluzone Quadrivalent IM PF 0.5 ML [facility] [id number] Sanofi Pasteur 0.5 mL [id number] completed HISTORY OF MEDICATION USE Medication Instructions Dates Provider Comments LAMISIL 250 MG ORAL TABLET 1 by mouth every day Angeli Hickman FLUTICASONE PROPIONATE 50 MCG/ACT NASAL SUSPENSION 2 sprays in each nostril once daily Angeli Hickman MONTELUKAST SODIUM 10 MG ORAL TABLET one tablet once daily Angeli Vick #30, 30 days supply, Filled 01/20/2019 SYMBICORT 160-4.5 MCG/ACT INHALATION AEROSOL TAKE 2 PUFFS BY MOUTH TWICE A DAY Angeli Vick #10, 30 days supply, Prescribed by DESHAWN TORRES, Filled 01/13/2019 OMEPRAZOLE 40 MG ORAL CAPSULE DELAYED RELEASE TAKE ONE CAPSULE BY MOUTH TWICE A DAY Angeli Vick #180, 90 days supply, Prescribed by ROSELYN MANE, Filled 12/28/2018 ASPIRIN 81 MG ORAL TABLET DELAYED RELEASE TAKE 1 TABLET BY MOUTH EVERY DAY Angeli Vick #30, 30 days supply, Prescribed by TRINITY EKYS, Filled 02/05/2019 ATORVASTATIN CALCIUM 40 MG ORAL TABLET one tablet once daily Angeli Vick METOPROLOL TARTRATE 25 MG ORAL TABLET 1 by mouth twice a day [place] AMLODIPINE BESYLATE 10 MG ORAL TABLET 1 tab by mouth daily [place] LOSARTAN POTASSIUM 50 MG ORAL TABLET 1 By Mouth once a day [place] SOCIAL HISTORY Date Observation Value Provider time of call 04/17/2019 11:45 AM Mony Roth family support single Gettng Angeli Vick " drug use, illicit Never Lanette Mena [...] affect E&M no depression, anxiety, or agitation Angelianatoliy Hickman mental status examination: orientation E&M oriented [...] Patient Well Exam (65 & Over) - 26037 Ofc Vst, Est Level III New Patient Detailed - [id number] HISTORY OF PROCEDURES Procedure Date Procedure Name [...]
--- OUTSIDE RECORDS SUMMARY | 2019-07-18 10:31 | XMS REPORT ---
Author Author Admin, [place] Organization Unknown Address Unknown Phone Unavailable PROBLEMS [...] Encounter Diagnosis - Ambulatory Encounter Mony Roth [facility] [place] - Ambulatory Encounter Mony Roth [facility] UNK - Ambulatory Encounter Angeli Vick Angeli Vick [facility] Family Practice UNK - Ambulatory Encounter Angeli Vick Angeli Vick [facility] Practice UNK - Ambulatory Encounter Angeli Vick Angeli Vick [facility] Practice UNK - Ambulatory Encounter Angeli Vick Angeli Vick Lanette Mena [facility] Practice PrediabetesAnnual examMammogram yearly screeningColon cancer screeningOnychomycosis, toenails - Ambulatory Encounter Fax Status [facility] Services UNK - Ambulatory Encounter Fax Status [facility] UNK - Ambulatory Encounter Lanette Mena [facility] Practice UNK - Ambulatory Encounter Angeli Vick Hickman [facility] Practice UNK - Ambulatory Encounter Angeli Vick Angeli Hickman [facility] Practice UNK - Ambulatory Encounter Angeli Vick [facility] Practice UNK - Ambulatory Encounter Angeli Vick Angeli Hickman [facility] Practice UNK - Ambulatory Encounter Angeli Vick Angeli Vick Read Lanette Mena [facility] Hx of asthmaHyperlipidemia - Amb[facility] - Ambulatory Encounter Fax Status [facility] Services UNK - Ambulatory Encounter Fax Status [facility] Services UNK - Ambulatory Encounter Fax Status [facility] Services UNK - Ambulatory Encounter [place] [facility] Practice UNK - Ambulatory Encounter [place] [facility] Essential hypertensionPtosis of eyelid, rightHistory of stroke [...] Status Fluzone Quadrivalent IM PF 0.5 ML [facility] [id number] Sanofi Pasteur 0.5 mL [id number] completed HISTORY OF MEDICATION USE Medication Instructions [...] Patient Well Exam (65 & Over) - 42414 Ofc Vst, Est Level III New Patient Detailed - 96042 HISTORY OF PROCEDURES Procedure Date Procedure Name [...]
--- OUTSIDE RECORDS SUMMARY | 2019-07-18 10:32 | XMS REPORT ---
Author Author Admin, [place] Organization Unknown Address Unknown Phone Unavailable PROBLEMS Condition Status Date Provider Notes Obesity active Angeli Vick DIZZINESS active Angeli Vick Vitamin D deficiency active Angeli Vick Urinary incontinence active Angeli Vick Onychomycosis, toenails active Angeli Vick Colon cancer screening active Angeli Vick Mammogram yearly screening active Angeli Vick Annual exam active Angeli Vick Prediabetes active Angeli Vick Hyperlipidemia active Angeli Vick Hx of asthma active Angeli Vick History of stroke active [place] Ptosis of eyelid, right active [place] Essential hypertension active [place] ENCOUNTERS Date Type Provider Location Encounter Diagnosis - Ambulatory Encounter [facility] Ambulatory Encounter Fax [facility] Services UNK - Ambulatory Encounter LDC Care Coordination Desktop Janelle [place] [facility] Services Contact Center UNK - Ambulatory Encounter Angeli Vick Angeli Vick [facility] Family Practice UNK - Ambulatory Encounter Angeli Vick Angeli Vick Madyson Mena [facility] Practice Urinary incontinenceVitamin D deficiencyDIZZINESSObesity - Ambulatory Encounter Janellecristian [place] [facility] Contact Center UNK - Ambulatory Encounter Mony Roth [facility] Adult Medicine UNK - Ambulatory Encounter Mony Roth [facility] Adult Medicine UNK - Ambulatory Encounter [facility]ick [facility] - [facility] Encounter [facility]ick [facility] - Ambulatory Encounter Angeli Vick Angeli Vick [facility] Practice UNK - Ambulatory Encounter Angeli Vick Angeli Vick [facility] PrediabetesAnnual examMammogram yearly screeningColon cancer screeningOnychomycosis, toenails - Ambulatory Encounter Fax Status [facility] Services UNK - Ambulatory Encounter Fax Status [facility] Services UNK - Ambulatory Encounter Lanette Mena [facility] Practice UNK - Ambulatory Encounter Angeli Vick Angeli Vick [facility] Practice UNK - Ambulatory Encounter Angeli Vick Angeli Vick [facility] Family Practice UNK - Ambulatory Encounter Angeli Vick Angeli Vick [facility] Mena [facility] Family Practice UNK - Ambulatory Encounter Angeli Vick Angeli Vick [facility] Family Practice UNK - Ambulatory Encounter Angeli Vick Angeli Vick Mena [facility] Practice Hx of asthmaHyperlipidemia - Ambulatory Encounter Janelle Mclean [facility] - Ambulatory Encounter Fax Status [facility] - Ambulatory Encounter Fax Status [facility] - Ambulatory Encounter Fax Status [facility] - Ambulatory Encounter [place] [facility] - Ambulatory Encounter [place] Essential hypertensionPtosis of eyelid, rightHistory of stroke VITAL SIGNS No Information Available ALLERGIES Allergy Name Onset Date Reaction Criticality Status ZYRTEC High Criticality active IBUPROFEN High Criticality active IODINE High Criticality active REASON FOR REFERRAL Start Date - End Date Service - Other Referral - External - Mammogram - Screening - Ophthalmology - External RESULTS Date Observation Value Provider Reference Range Interpretation Location vitamin D 25-hydroxy, serum 22.2 ng/mL [facility] 30.0-100.0 Low " alanine aminotransferase (SGPT), serum 26 1/L [facility] 0-32 " aspartate aminotransferase (SGOT), serum 29 1/L [facility] 0-40 " alkaline phosphatase, serum 111 1/L [facility] 39-117 " bilirubin, serum, total 0.5 mg/dL [facility] 0.0-1.2 " albumin/globulin ratio, serum 1.6 [facility] 1.2-2.2 " globulin, serum 2.9 [facility] 1.5-4.5 " albumin, serum 4.5 g/dL [facility] 3.6-4.8 " protein, total, serum 7.4 g/dL [facility] 6.0-8.5 " calcium, serum 9.2 mg/dL [facility] 8.7-10.3 " carbon dioxide, venous blood 26 mmol/L [facility] 20-29 " chloride, serum 102 mmol/L [facility] 96-106 " potassium, serum 3.6 mmol/L [facility] 3.5-5.2 " sodium, serum 145 mmol/L [facility] 134-144 High " urea nitrogen/creatinine ratio, serum 16 [facility] 12-28 " eGFR if 106 mL/min/((173/100).m2) [facility] >59 " Estimated Glomerular Filtration Rate (calc) 92 mL/min/((173/100).m2) [facility] >59 " creatinine, serum 0.64 mg/dL [facility] 0.57-1.00 " urea nitrogen, blood 10 mg/dL [facility] 8-27 " blood glucose, random 116 mg/dL [facility] 65-99 High hemoglobin A1C, blood, as % of total [...] Status Fluzone Quadrivalent IM PF 0.5 ML [facility] [id number] Sanofi Pasteur 0.5 mL [id number] completed HISTORY OF MEDICATION USE Medication Instructions [...] Date Observation Value Provider time of call 05/11/2019 11:43 AM Bigg Col[place] drug use, illicit Never Lanette Mena " alcohol use Never Lanette Mena " is there any chance that you could be ? No Lanette Mena " passive cigarette smoke exposure No Lanette Mena " smoking status never smoker Lanette Mena " Exercise Program Referral T Lanette Mena " Weight Management Counseling Provided T Lanette Mena " Nutrition intervention T Lanette Mena time of call 05/04/2019 11:27 AM Christian Cabello time of call 04/17/2019 11:45 AM Mony Roth family support single Gettng Angelianatoliy Floresen " drug use, illicit Never Lanette Mena [...] Read " passive cigarette smoke exposure No Lydnsey Read " smoking status never smoker Lyndsey [...] Available MENTAL STATUS Date Observation Value Provider Generalized Anxiety Disorder Questionnaire - Question 2 0 Lanette Mena " Generalized Anxiety Disorder Questionnaire - Question 1 0 Lanette Mena assessment of judgment and insight E&M intact Angeli Vick " mental status examination: orientation E&M oriented to time, place, and person Angeli Vick " assessment of mood and affect E&M no depression, anxiety, or agitation Angeli Vick mental status examination: orientation E&M oriented to time, place, and person Angeli Vick " assessment of mood and affect E&M no depression, anxiety, or agitation Angeli Vick assessment of judgment and insight E&M intact [...] No Information Available TREATMENT PLAN Date Name Vitamin D, 25-Hydroxy Comp. Metabolic Panel (14) FIT- Fecal immunoassay test Hemoglobin A1c Lipid Panel Comp. Metabolic Panel (14) CBC With Differential/Platelet - - - Ofc Vst, Est Level III First Vx - Ix admin via ID IM or jet injects without counseling by physician Fluzone Quadrivalent IM Prefilled Syringe 0.5 mL (PF) Vaccines Ordered - Print Consent/Declination Forms Est Patient Well Exam (65 & Over) - 54683 Ofc Vst, Est Level III New Patient Detailed - 14283 HISTORY OF PROCEDURES Procedure Date Procedure Name [...]
--- OUTSIDE RECORDS SUMMARY | 2019-07-18 10:32 | XMS REPORT ---
Author Author Admin, [place] Organization Unknown Address Unknown Phone Unavailable PROBLEMS [...] Provider Location Encounter Diagnosis - Ambulatory Encounter Janelle Cabello [facility] Services Contact Center UNK - Ambulatory Encounter Mony Roth [facility] Adult Medicine UNK - Ambulatory Encounter Mony Roth [facility] Adult Medicine UNK - Ambulatory Encounter [facility]eli [facility] - [facility]ulatory Encounter [facility] UNK - Ambulatory Encounter Angeli Vick Angeli Vick [facility] Practice UNK - Ambulatory Encounter Angeli Vick Angeli Vick Lanette Mena [facility] Practice PrediabetesAnnual examMammogram yearly screeningColon cancer screeningOnychomycosis, toenails - Ambulatory Encounter Fax Status [facility] Services UNK - Ambulatory [facility]counter [facility] - Ambulatory Encounter Lanette Mena [facility] Practice UNK - Ambulatory Encounter Angeli Vick Angeli Vick [facility] Practice UNK - Ambulatory Encounter Angeli Vick Angeli Vick [facility] Practice UNK - Ambulatory Encounter Angeli Vick Angeli Vick [facility] Lanette Mena [facility] Practice UNK - Ambulatory Encounter Angeli Vick Angeli Vick [facility] Practice UNK - Ambulatory Encounter Angeli Vick Angeli Vick Mena [facility] Hx of asthmaHyperlipidemia - Ambulatory Encounter Janelle Mclean [facility] Services Contact Center UNK - Ambulatory [facility] - [facility] - [facility]ulatory [facility]counter [facility] - Ambulatory Encounter [place] [facility] Practice UNK - Ambulatory Encounter [place] [facility] [...] Status Fluzone Quadrivalent IM PF 0.5 ML [facility] [address]-06 Sanofi Pasteur 0.5 mL [id number] completed HISTORY OF MEDICATION USE Medication Instructions [...] Date Observation Value Provider time of call 05/04/2019 11:27 AM Christian [...] oriented to time, place, and person Angeli Tonybeen " assessment of mood and affect E&M [...] Patient Well Exam (65 & Over) - 33255 Ofc Vst, Est Level III New Patient Detailed - 25716 HISTORY OF PROCEDURES Procedure Date Procedure Name [...]
--- OUTSIDE RECORDS SUMMARY | 2019-07-18 10:32 | XMS REPORT ---
Author Author Admin, [place] Organization Unknown Address Unknown Phone Unavailable PROBLEMS Condition Status Date Provider Notes Abnormal stool test active Angeli Vick Obesity active Angeli Vick DIZZINESS active Angeli [...] [place] Ptosis of eyelid, right active oSuth [place] Essential hypertension active [place] ENCOUNTERS Date Type Provider Location Encounter Diagnosis - Ambulatory Encounter [facility] - Ambulatory Encounter Fax Status [facility] Services UNK - Ambulatory Encounter Fax Status [facility] Services UNK - Ambulatory Encounter Fax Status [facility] Services UNK - Ambulatory Encounter Lanette Mena [facility] Practice UNK - Ambulatory Encounter Lanette Mena [facility] UNK - Ambulatory Encounter Angeli Vick Angeli Vick [facility] UNK - Ambulatory Encounter Angeli Vick Angeli Vick [facility] Abnormal stool test - Ambulatory Encounter Angeli Vick Angeli Vick [facility] UNK - Ambulatory Encounter Angeli Vick Angeli Vick Mena [facility] Practice UNK - Ambulatory Encounter Angeli Vick Angeli Vick [facility] UNK - Ambulatory Encounter Angeli Vick Angeli Vick Mena [facility] Practice UNK - Ambulatory Encounter Fax Status [facility] Services UNK - Ambulatory Encounter Janelle Colunga [facility] Contact Center UNK - Ambulatory Encounter Angeli Vick Angeli Vick [facility] UNK - Ambulatory Encounter Angeli Vick Angeli Vick Mena [facility] Urinary incontinenceVitamin D deficiencyDIZZINESSObesity - Ambulatory Encounter Janelle Cabello [facility] Contact Center UNK - Ambulatory Encounter Mony Roth [facility] UNK - Ambulatory Encounter Mony Roth [facility] UNK - Ambulatory Encounter Angeli Vick Angeli Vick [facility] UNK - Ambulatory Encounter Angeli Vick Angeli Vick [facility] UNK - Ambulatory Encounter Angeli Vick Angeli Vick [facility] UNK - Ambulatory Encounter Angeli Vick Angeli Vick Mena [facility] Practice PrediabetesAnnual examMammogram yearly screeningColon cancer screeningOnychomycosis, toenails - Ambulatory Encounter [facility] - Ambulatory Encounter Lanette Mena [facility] UNK - Ambulatory Encounter Angeli Vick Angelianatoliy Hickman [facility] Practice UNK - Ambulatory Encounter Angeli Vick Angelianatoliy Hickman [facility] UNK - Ambulatory Encounter Angeli Vick Angelianatoliy Hickman [facility] Lanette Mena [facility] Practice UNK - Ambulatory Encounter Angeli Vick Angeli Vick [facility] Practice UNK - Ambulatory Encounter Angeli Vick Angeli Vick Mena [facility] Hx of asthmaHyperlipidemia - Ambulatory Encounter Janelle Mclean [facility] Contact Center UNK - Ambulatory Encounter [facility] - [facility] - [facility]ulatory [facility]counter [facility] UNK - Ambulatory Encounter [place] [facility] UNK - Ambulatory Encounter [place] [facility] Essential hypertensionPtosis of eyelid, rightHistory of stroke VITAL SIGNS No Information Available ALLERGIES Allergy Name Onset Date Reaction Criticality Status ZYRTEC High Criticality active IBUPROFEN High Criticality active IODINE High Criticality active REASON FOR REFERRAL Start Date - End Date Service - Gastroenterology - External - Mammogram - Screening - [...] Status Fluzone Quadrivalent IM PF 0.5 ML [facility] [address]-89 Sanofi Pasteur 0.5 mL [id number] completed HISTORY OF MEDICATION USE Medication Instructions Dates Provider Comments VITAMIN D (ERGOCALCIFEROL) 1.25 MG (98321 UT) ORAL CAPSULE 1 tablet weekly for 8 weeks - Angeli Vick LAMISIL 250 MG ORAL TABLET 1 by [...] MG ORAL TABLET one tablet once daily Angelianatoliy Floresen METOPROLOL TARTRATE 25 MG ORAL TABLET 1 [...] Provided T Lanette Mena " Nutrition intervention Rox Mena time of call 05/04/2019 11:27 AM Christian Cabello time of call 04/17/2019 11:45 AM Mony Roth family support single Gettng Angeli Hickman " [...] Patient Well Exam (65 & Over) - 69810 Ofc Vst, Est Level III New Patient Detailed - 08443 HISTORY OF PROCEDURES Procedure Date Procedure Name [...]
--- OUTSIDE RECORDS SUMMARY | 2019-07-18 10:32 | XMS REPORT ---
Author Author Admin, [place] Organization Unknown Address Unknown Phone Unavailable PROBLEMS [...] - Ambulatory Encounter [facility] - Ambulatory Encounter Fax Status [facility] Services UNK - Ambulatory Encounter [facility] UNK - Ambulatory Encounter Angeli Vick Angeli Vick [facility] Family Practice UNK - Ambulatory Encounter Angeli Vick Angeli Vick Madyson Mena [facility] Practice Urinary incontinenceVitamin D deficiencyDIZZINESSObesity - Ambulatory Encounter Janelle [facility]ello [facility] UNK - Ambulatory Encounter Mony Roth [facility] Adult Medicine UNK - Ambulatory Encounter Mony Roth [facility] Adult Medicine UNK - Ambulatory Encounter [facility] - [facility] Encounter [facility] - Ambulatory Encounter Angeli Vick Angeli Vick [facility] Practice UNK - Ambulatory Encounter Angeli Vick Angeli Vick Mena [facility] PrediabetesAnnual examMammogram yearly screeningColon cancer screeningOnychomycosis, toenails - Ambulatory Encounter [facility] - Ambulatory Encounter Fax Status [facility] Services UNK - Ambulatory Encounter Lanette Mena [facility] Practice UNK - Ambulatory Encounter Angeli Vick Angeli Vick [facility] Practice UNK - Ambulatory Encounter [facility] UN[facility] - Ambulatory Encounter Angeli Vick Angeli Vick [facility] Mena [facility] Family Practice UNK - Ambulatory Encounter Angeli Vick Angeli Vick [facility] Practice UNK - Ambulatory Encounter Angeli Vick Angeli Vick Mena [facility] Practice Hx of asthmaHyperlipidemia - Ambulatory Encounter Janellecristian Sharpkimberly [place] Barbara Kelleyezo [facility] Contact Center [facility] - Ambulatory Encounter Fax Status [facility] - Ambulatory Encounter [facility]ax Status [facility] - Ambulatory Encounter Fax Status [facility] - Ambulatory Encounter [place] [facility] - Ambulatory Encounter South G[place] [facility] Essential hypertensionPtosis of eyelid, rightHistory of [...] Status Fluzone Quadrivalent IM PF 0.5 ML [facility] [address]-81 Sanofi Pasteur 0.5 mL [id number] completed HISTORY OF MEDICATION USE Medication Instructions [...] " passive cigarette smoke exposure No Lanette Rajesh " smoking status never smoker Lanette Rajesh " Exercise Program Referral T Lanette Mena [...] Patient Well Exam (65 & Over) - 54432 Ofc Vst, Est Level III New Patient Detailed - 39546 HISTORY OF PROCEDURES Procedure Date Procedure Name [...]
--- OUTSIDE RECORDS SUMMARY | 2019-07-18 10:32 | XMS REPORT ---
Author Author Admin, [place] Organization Unknown Address Unknown Phone Unavailable PROBLEMS [...] Location Encounter Diagnosis - Ambulatory Encounter Angeli Ivck Angeli Vick [facility] Practice Abnormal stool test - Ambulatory Encounter Angeli Vick Angeli Vick [facility] Practice UNK - Ambulatory Encounter Angeli Vick Angeli Vick [facility] Family Practice UNK - Ambulatory Encounter Angeli Vick Angeli Vick [facility] Family Practice UNK - Ambulatory Encounter Angeli Vick Angeli Vick [facility] Family Practice UNK - Ambulatory Encounter Fax Status [facility] Services UNK - Ambulatory Encounter Janelle Colunga [facility] Contact Center UNK - Ambulatory Encounter Angeli Vick Angelianatoliy Hickman [facility] Family Practice UNK - Ambulatory Encounter Angeli Vick Angeli Vick Mena [facility] Urinary incontinenceVitamin D deficiencyDIZZINESSObesity - Ambulatory Encounter Janelle Cabello [facility] Contact Center UNK - Ambulatory Encounter Mony Roth [facility] Adult Medicine UNK - Ambulatory Encounter Mony Roth [facility] UNK - Ambulatory Encounter Angeli Vick [facility] - Ambulatory Encounter Angeli Vick [facility] UN[facility] - Ambulatory Encounter Angeli Vick Angelianatoliy Hickman [facility] Practice UNK - Ambulatory Encounter Angeli Vick Angelianatoliy Mena [facility] PrediabetesAnnual examMammogram yearly screeningColon cancer screeningOnychomycosis, toenails - Ambulatory Encounter Fax Status [facility] Services UNK - Ambulatory Encounter [facility] - Ambulatory Encounter Lanette Mena [facility] Family Practice UNK - Ambulatory Encounter Angeli Vick Angeli Vick [facility] Practice UNK - Ambulatory Encounter Angeli Vick Angeli Vick [facility] Practice UNK - Ambulatory Encounter Angeli Hickman Angeli Mena [facility] UNK - Ambulatory Encounter Angelianatoliy Hickman Angeli Hickman [facility] UNK - Ambulatory Encounter Angeli Vick Mena [facility] Hx of asthmaHyperlipidemia - Ambulatory Encounter Janelle Mclean [facility] Contact Center K - Ambulatory Encounter Fax Status [facility] Services K - Ambulatory Encounter Fax Status [facility] Services K - Ambulatory Encounter Fax Status [facility] Services UNK - [facility] [place] [facility] Essential hypertensionPtosis of eyelid, rightHistory of [...] Status Fluzone Quadrivalent IM PF 0.5 ML [facility] [address]-63 Sanofi Pasteur 0.5 mL [id number] completed HISTORY OF MEDICATION USE Medication Instructions [...] Lanette Mena " alcohol use Never Lanette Rajesh " is there any chance that you [...] that you could be ? No Lanette Mnea " passive cigarette smoke exposure No Lanette [...] Patient Well Exam (65 & Over) - 69077 Ofc Vst, Est Level III New Patient Detailed - 03043 HISTORY OF PROCEDURES Procedure Date Procedure Name [...]
[2019-07-18 14:25] VITALS: BP 151/90
== END | disposition home or self-care (01) ==
LOC: OR 10:23
PROVIDERS: ATTEND Internal Medicine Gastroenterology
DX: Z12.11 Encounter for screening for malignant neoplasm of colon (principal); D12.0 Benign neoplasm of cecum; D12.2 Benign neoplasm of ascending colon; D12.3 Benign neoplasm of transverse colon; D12.4 Benign neoplasm of descending colon; K57.30 Diverticulosis of large intestine without perforation or abscess without bleeding; R19.5 Other fecal abnormalities; K64.8 Other hemorrhoids; K44.9 Diaphragmatic hernia without obstruction or gangrene; J45.909 Unspecified asthma, uncomplicated; I10 Essential (primary) hypertension; E11.9 Type 2 diabetes mellitus without complications; I69.398 Other sequelae of cerebral infarction; I69.392 Facial weakness following cerebral infarction; E78.5 Hyperlipidemia, unspecified; Z88.8 Allergy status to other drugs, medicaments and biological substances; Z91.041 Radiographic dye allergy status; Z01.810 Encounter for preprocedural cardiovascular examination; Z01.812 Encounter for preprocedural laboratory examination; Z68.30 Body mass index [BMI] 30.0-30.9, adult
CPT/HCPCS: 36415 ×2; 45384; 45385; 82948; 85025; 93005; J2001; J2704; J3010; 45378

== ENCOUNTER 2020-02-24 09:46 | Emergency (ER) | payer MEDICARE, OTHER ==
[~2020-02-24] VITALS: Ht 154.9 cm; Wt 75.3 kg
[~2020-02-24 09:46] MED LIST changes: -FENTANYL CITRATE/PF 100MCG/2 ML INJ ONE; -LIDOCAINE HCL 2% LOCAL INJ 5 ML SDV VIAL INJ ONE; -PROPOFOL IV EMULSION 10 MG/ML 20 ML VIAL ONE
--- NOTE | 2020-02-24 10:18 | Emergency Department Note ---
History of Present Illnes History of Present Illness Chief Complaint: General Medicine Complaints History of Present Illness This is a 70 year old female PATIENT IN FROM HOME WITH COMPLAINTS OF HEADACHE AND BILATERAL PAIN/SWELLING IN FRONT OF EACH EAR X 2 DAYS, WORSE AFTER GETTING TEETH CLEANED DAY 2 DAYS AGO. RATES PAIN 910. PATIENT ALERT AND ORIENTED, RESP EVEN AND NONLABORED, APPEARS UNCOMFORTABLE, AMBULATORY WITHOUT ASSISTANCE, O2 SATS 98% ON ROOM AIR. Historian: Patient Arrival Mode: Car [employer] Mill And Lathe Operator Required: No Onset (how long ago): day(s) (2) Location: PRE-AURICULAR AREA AND HEAD Quality: PAIN Radiation: Reports non-radiation Severity: severe Onset quality: gradual Timing of current episode: constant Progression: worsening Chronicity: new Context: Reports other (RECENT DENTAL CLEANING) Relieving factors: none Exacerbating factors: none Associated symptoms: Reports denies other symptoms Treatments prior to arrival: none Past Medical/Family History Physician Review I have reviewed the patient's past medical and family history. Any updates have been documented here. Past Medical History Recent Fever: No Clinical Suspicion of Infectio: No New/Unexplained Change in Ment: No Past Medical History: Hypertension, Asthma Other Medical History: UMBILICAL HERNIA Past Surgical History: Hysterectomy, Hernia Repair Social History Smoking Cessation: Never Smoker Counseling Performed: No Alcohol Use: None Any Illegal Drug Use: No TB Exposure/Symptoms: No Physically hurt or threatened: No Family History Family history of heart diseas: No Other Last Tetanus: UNKNOWN Any Pre-Existing Lines (PICC,: No Review of Systems Review of Systems Constitutional: Reports no symptoms EENTM: Reports as per HPI Cardiovascular: Reports no symptoms Respiratory: Reports no symptoms Gastrointestinal: Reports no symptoms Genitourinary: Reports no symptoms Musculoskeletal: Reports no symptoms Integumentary: Reports no symptoms Neurological: Reports as per HPI Psychological: Reports no symptoms Endocrine: Reports no symptoms Hematological/Lymphatic: Reports no symptoms Physical Exam Related Data Allergies: Coded Allergies: cetirizine (Verified Allergy, Intermediate, 02/24/20) MOUTH SWELLS ibuprofen (Verified Allergy, Intermediate, 02/24/20) SWELLING Iodinated Contrast Media (Verified Allergy, Unknown, 02/24/20) Triage Vital Signs Vital Signs Date Time Temp Pulse Resp B/P (MAP) Pulse Ox O2 Delivery O2 Flow Rate FiO2 02/24/20 09:55 98.2 80 18 186/91 98 Room Air Vital signs reviewed: Yes Physical Exam CONSTITUTIONAL Constitutional: Present well-developed, Present well-nourished HENT HENT: Present normocephalic, Present atraumatic, Present nose normal, Present other (MILD O/P ERYTHEMA WITHOUT EXUDATE); Absent mucosae dry, Absent tonsillar excudate HENT L/R: Present left TM normal, Present right TM normal, Present left canal normal, Present right canal normal, Present left ext ear normal, Present right ext ear normal EYES Eyes: Reports PERRL, Reports conjunctivae normal NECK Neck: Present ROM normal, Present supple, Present other (NO MENINGEAL SIGNS, BILATERAL ENLARGED AND TENDER PRE-AURICULAR LYMPH NODES, NO SUBMANDIBULAR OR CERVICAL LAD); Absent carotid bruit PULMONARY Pulmonary: Present effort normal, Present breath sounds normal CARDIOVASCULAR Cardiovascular: Present regular rhythm, Present heart sounds normal, Present capillary refill normal, Present normal rate GASTROINTESTINAL Abdominal: Present soft, Present nontender, Present bowel sounds normal GENITOURINARY Genitourinary: Present exam deferred SKIN Skin: Present warm, Present dry MUSCULOSKELETAL Musculoskeletal: Present ROM normal NEUROLOGICAL Neurological: Present alert, Present oriented x 3, Present DTRs normal, Present no gross motor or sensory deficits; Absent cranial nerve deficit, Absent sensory deficit, Absent abnormal coordination, Absent abnormal gait, Absent weakness PSYCHOLOGICAL Psychological: Present mood/affect normal, Present judgement normal Results Laboratory Lab results reviewed: Yes Imaging Imaging results reviewed: Yes Assessment & Plan Medical Decision Making MDM RECENT DENTAL CLEANING THEN DEVELOPED PAINFUL SWOLLEN PRE-AURICULAR LAD AND HEADACHE - CHECK STREP SWAB AND CT BRAIN Reassessment Reassessment PAIN IMPROVED. DC HOME, AUGMENTIN 875 BID X 10 DAYS, TYL #3 UD, F/U PCP WEDNESDAY Assessment & Plan Final Impression: (1) Headache (2) Preauricular adenopathy Depart Disposition: HOME, SELF-CARE Last Vital Signs Date Time Temp Pulse Resp B/P (MAP) Pulse Ox O2 Delivery O2 Flow Rate FiO2 02/24/20 09:55 98.2 80 18 186/91 98 Room Air Home Meds Active Scripts Metoprolol Tartrate (LOPRESSOR) 25 Mg Tab, 25 MG PO BID for 30 Days, TAB Prov:TRINITY KEYS NP 02/04/19 Reported Medications Montelukast Sodium (SINGULAIR) 10 Mg Tablet, PO DAILY 07/13/19 [Vit D2] No Conflict Check, PO WEEKLY 07/13/19 Losartan Potassium (LOSARTAN POTASSIUM) 100 Mg Tablet, 50 MG PO DAILY, TAB 07/13/19 Amlodipine Besylate (AMLODIPINE BESYLATE) 10 Mg Tablet, 10 MG PO DAILY, #30 TAB 07/13/19 Atorvastatin Calcium (ATORVASTATIN CALCIUM) 10 Mg Tablet, 40 MG PO 2100, #30 TAB 02/04/19 Budesonide/Formoterol Fumarate (SYMBICORT 160-4.5 MCG INHALER) 10.2 Gm Hfa.aer.ad, BID 02/04/19 Omeprazole (OMEPRAZOLE) 40 Mg Capsule.dr, BID 02/04/19 Medications in the ED Acetaminophen/ Hydrocodone Bitart 1 ea ONCE ONCE PO ; Start 02/24/20 at 10:15; Stop 02/24/20 at 10:16; Status UNV Acetaminophen 650 mg ONCE ONCE PO ; Start 02/24/20 at 10:15; Stop 02/24/20 at 10:16; Status UNV AMI ESPARZA MD Feb 24, 2020 10:18
[2020-02-24] MEDS ORDERED: ACETAMINOPHEN 325 MG TAB ONE (10:20)
--- NOTE | 2020-02-24 10:53 | Diagnostic Imaging Report ---
CT BRAIN WO HISTORY: Headache COMPARISON: MRI of the brain 02/03/[address] 02/03/2019 Technique: Noncontrast axial scans were obtained from skull base to the vertex. Coronal and sagittal reconstructions obtained from the axial data. One or more of the following dose reduction techniques were used: Automated exposure control, adjustment of the mA and/or kV according to patient size, and/or utilization of iterative reconstruction technique. DISCUSSION: Scalp/Skull: Unremarkable. Brain sulci: Age-appropriate. Ventricles: Normal in size and configuration. Extra-axial spaces: No masses or fluid collections. Carotid siphon calcifications are present. Parenchyma: Mild bilateral deep white matter hypodensity is likely chronic microvascular ischemic change. There is an old small cortical infarct in the in the medial right occipital lobe (lingual gyrus). Otherwise, no masses, hemorrhage, or large vascular territory acute infarct. Dural sinuses: No abnormal densities. Sellar/Suprasellar region: Intact. Skull base: Intact. Incidental findings: Minimal scattered paranasal sinus mucosal thickening. IMPRESSION: 1. No acute intracranial abnormalities. 2. Mild supratentorial chronic microvascular ischemic change. 3. 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 Signed by: Dr. Chris Celeste M.D. on 02/24/2020 10:49 AM
[2020-02-24] MEDS ORDERED: HYDROCODONE/APAP 5MG-325MG TAB PO ONE (11:00)
[2020-02-24] MEDS ORDERED: ACETAMINOPHEN 325 MG TAB PO ONE (11:00)
--- OUTSIDE RECORDS SUMMARY | 2020-02-25 16:38 | XMS REPORT | Continuity of Care Document ---
Author Author [facility] t Organization [facility] Address [address] [place] [address] Phone Unavailable Care Team Providers Care Forms Designer Name Role Phone NONSTAFF PCP Unavailable Kelsey ESPARZA Attphys Unavailable Vick, Angeli Attphys Status, Fax Attphys Unavailable GaitanMadyson angel Attphys Unavailable Mena, Lanette Attphys Unavailable Delgadillo, Janelle Attphys Unavailable Arcenio, E Ovidio Attphys Unavailable Mckeon MedAdherence,, Nique Attphys Unavailable Arcenio MedAdherence, Mary Attphys Unavai lable DACCAK, RUKAN Attphys Unavailable Brink MedAdherence, Riana Attphys Unavailab Sol Yi Attphys Unavailable Wang Cabello, S Christian Attphys Unavailable Roth, Mony Attphys Unavailable Lyndsey Read Attphys Unavailable Charo Gaona Attphys Unavailable Suraj Lechuga Attphys Unavailable Kelsey Mclean Attphys Unavailable Sol Mcgill Attphys CADEN BALDERAS Attphys Unavailable CADEN BALDERAS Admphys Unavailable Vick, Angeli Unavailable Sol Mcgill Unavailable Payers Payer Name Policy Type Policy Number Effective Date Expiration Date Sabas vincent [facility] [id number] 2019 00:00:00 [facility] [id number] 2017 00:00 :00 [facility] Problems Condition Name Condition Details Condition Category Status Onset Date Resolution Date Last Treatment Date Treating Clinician Comments Source Frequent falls Condition Active 2019-11-28 00:00:00 12:42:04 [facility] Abnormal stool test Condition Active 2019-05-12 00:00:00 2019-08-09 08:46:28 Vick, [employer] [facility] Obesity Condition Active 2019-05-12 00:00:00 2019-08-09 08:46:28 [facility] DIZZINESS Condition Active 2019-05-11 00:00:00 12:37:52 VickGSOUND [facility] Vitamin D deficiency Condition Active 2019-05-11 00:00:00 2019-05-12 12:37:52 [employer]Neo [employer] [facility] Urinary incontinence Condition Active 2019-05-11 00:00:00 2019-05-12 12:37:52 VickNeo [employer] [facility] Onychomycosis, toenails Condition Active 2019-02-28 00:00 :00 2019-02-28 11:10:37 Vick [employer] [facility] Colon cancer screening Condition Active 2019-02-28 00:00: 00 2019-02-28 11:10:37 Vick, [employer] [facility] Mammogram yearly screening Condition Active 2019-02-28 00 :00:00 2019-02-28 11:10:37 VickNeo [employer] [facility] Annual exam Condition Active 2019-02-28 00:00:00 2018-05 11:10:37 [facility] Prediabetes Condition Active 2019-02-28 00:00:00 2018-05 11:10:37 [facility]Dazz[facility] Hyperlipidemia Condition Active 2019-02-15 00:00:00 201 02-06-18 11:11:32 Angeli Hickman [facility] Hx of asthma Condition Active 2019-02-15 00:00:00 02-15 11:11:[address] [facility] History of stroke Condition Active 2019-02-08 00:00:00 2019-02-15 10:31:07 [place] [facility] Ptosis of eyelid, right Condition Active 2019-02-08 00:00 :00 2019-02-15 10:31:07 [place] [facility] Essential hypertension Condition Active 2019-02-08 00:00: 00 2019-02-15 10:31:07 [place] [facility] Weakness of right third cranial nerve Oculomotor nerve palsy, ri ght eye Problem Active [facility] Nerve palsy Problem Active [facility] Headache Problem Active [facility] Preauricular lymphadenopathy Problem Active [facility] Allergies, Adverse Reactions, Alerts Allergy Name Allergy Type Status Severity Reaction(s) Onset Date Inacti ve Date Treating Clinician Comments Source Iodinated Contrast Media Allergy to substance Active 20 17-02-26 00:00:00 [facility] Ibuprofen Allergy to substance Active Moderate 2020-02-24 00:00:00 [facility] Cetirizine Allergy to substance Active Moderate 2020-02-24 00:00:0 0 [facility] ZYRTEC Drug allergy (disorder) Active High Criticality 2019-01 00:00:00 [facility] IBUPROFEN Drug allergy (disorder) Active High Criticality 2019-02-08 00:00:00 [facility] IODINE Drug allergy (disorder) Active High Criticality 2019-01 00:00:00 [facility] iodine DA Active MO 2018-01-29 00:00:00 [facility] iodine DA Active MO 2015-01-12 00:00:00 [facility] Social History Social Habit Start Date Stop Date Quantity Comments Source drug use, illicit 2019-11-28 10:18:45 2019-11-28 10:18:45 Never [facility] alcohol use 2019-11-28 10:18:45 2019-11-28 10:18:45 Never [facility] is there any chance that you could be ? 2019-11-28 1 0:18:45 2019-11-28 10:18:45 No [facility] if the patient is using/has used a vapin g item, Current, Former, Never Used, Not asked 2019-11-28 10:18:45 2019-11-28 10:18:45 No [facility] time of call 2019-11-24 12:26:02 2019-11-24 12:26:02 11/24/2019 12:26 PM [facility] passive cigarette smoke exposure 2019-08-09 08:03:05 2019-08-09 08:03 :05 No [facility] family support 2019-02-28 10:38:19 2019-02-28 10:38:19 single Gettng [facility] social history reviewed E&M 2019-02-15 09:56:08 2019-02-15 09:56 :08 reviewed today [facility] Sex Ass[birth year] At 1950 00:00:00 1950 00:00:00 Female [facility] Smoking Status Start Date Stop Date Source Never smoked tobacco (finding) [facility] Medications Ordered Medication Name Filled Medication Name Start Date Stop Da te Current Medication? Ordering Clinician Indication Dosage Frequency Signature (SIG) Comments Components Source (TERBINAFINE HCL) 250 MG TABS 2019-08-26 00:00:00 Yes Angeli Vick 1{Tablet} 1xD TAKE 1 TABLET BY MOUTH EVERY DAY [facility] BLOOD PRESS MONITOR/M-L CUFF (BLOOD PRESSURE MONITORING) 2019-08-09 00:00:00 Yes Angeli Vick use for BP monitoring [facility] VITAMIN D (ERGOCALCIFEROL) (ERGOCALCIFEROL) 1.25 MG (11020 U T) CAPS 2019-05-12 00:00:00 2019-07-07 00:00:00 No Angeli Vick 1 tablet weekly for 8 weeks [facility] (FLUTICASONE PROPIONATE) 50 MCG/ACT SUSP 2019-02-15 00:00: 00 Yes Angeli Vick 2 sprays in each nostril once daily [facility] (ATORVASTATIN CALCIUM) 40 MG TABS 2019-02-15 00:00:00 Ye s Angeli Vick 1{Tablet} 1xD one tablet once daily [facility] (METOPROLOL TARTRATE) 25 MG TABS 2019-02-08 00:00:00 Yes Angeli Vick 1{Tablet} 2xD 1 by mouth twice a day [facility] (AMLODIPINE BESYLATE) 10 MG TABS 2019-02-08 00:00:00 Yes Angeli Vick 1{Tablet} 1xD 1 tab by mouth daily [facility] (LOSARTAN POTASSIUM) 50 MG TABS 2019-02-08 00:00:00 Yes Angeli Vick 1{Tablet} 1xD 1 By Mouth once a day [facility] Metoprolol Tartrate (Lopressor) 25 Mg TAB Metoprolol T artrate (Lopressor) 25 Mg TAB 2019-02-04 05:37:00 Yes 25 Twice A Day [facility] Aspirin (Aspirin Chew) 81 Mg CHEW Aspirin (Aspirin Chew) 81 Mg CHEW 2019-02-04 05:37:00 2019-07-13 00:00:00 No 81 Daily [facility] (ASPIRIN) 81 MG TBEC 2019-02-04 00:00:00 Yes TAKE 1 TABLET BY MOUTH EVERY DAY #30, 30 days supply, Prescribed by TRINITY KEYS, Filled 12/2018 [facility] (MONTELUKAST SODIUM) 10 MG TABS 2019-01-20 00:00:00 Yes 1{Tablet} 1xD one tablet once daily #30, 30 days supply, Filled 01/20/2019 [facility] SYMBICORT (BUDESONIDE-FORMOTEROL FUMARATE) 160-4.5 MCG/ACT A ERO 2019-01-13 00:00:00 Yes TAKE 2 PUFFS BY MOUTH T WICE A DAY #10, 30 days supply, Prescribed by DESHAWN TORRES, Filled 01/13/2019 [facility] Cefdinir (Omnicef) 300 Mg CAPSULE Cefdinir (Omnicef) 300 Mg CAPSULE 2018-10-08 13:25:00 2019-02-04 00:00:00 No 300 Twice A Day [facility] (OMEPRAZOLE) 40 MG CPDR 2018-05-23 00:00:00 Yes TAKE ONE CAPSULE BY MOUTH TWICE A DAY #180, 90 days supply, Prescribed by KOFI RUIZ, Filled 12/28/2018 [facility] Amlodipine Besylate Amlodipine Besylate Yes 10 Daily [facility] Atorvastatin Calcium Atorvastatin Calcium Yes 40 Today At 9:00PM [facility] Budesonide/Formoterol Fumarate (Symbicor t 160-4.5 Mcg Inhaler) 10.2 Gm HFA.AER.AD Budesonide/Formoterol Fumarate (Symbicor t 160-4.5 Mcg Inhaler) 10.2 Gm HFA.AER.AD Yes Twice A Day [facility] Losartan Potassium Losartan Potassium Yes 50 Da momo [facility] Montelukast Sodium (Singulair) 10 Mg TABLET Montelukas t Sodium (Singulair) 10 Mg TABLET Yes Daily [facility] Omeprazole Omeprazole Yes Twice A Day [facility] Vit D2 Vit D2 Yes Weekly [facility] Immunizations Ordered Immunization Name Filled Immunization Name Date Status Comments Source Fluzone Quadrivalent IM PF 0.5 ML [facility] [id number] 2019-02-28 12:20:00 Completed [facility] Vital Signs Vital Name Observation Time Observation Value Comments Source Weight 2020-02-24 09:55:00 166 [lb_av] [facility] BMI (Body Mass Index) 2020-02-24 09:55:00 31.4 kg/m2 [facility] pulse rate 2019-11-28 10:18:45 73 /min [facility] blood pressure, diastolic 2019-11-28 10:18:45 73 mm[Hg] [facility] blood pressure, systolic 2019-11-28 10:18:45 143 mm[Hg] [facility] blood pressure, diastolic 2019-08-09 08:03:05 67 mm[Hg] [facility] blood pressure, systolic 2019-08-09 08:03:05 146 mm[Hg] [facility] oxygen saturation, oximetry 2019-08-09 08:03:05 96 % [facility] respiratory rate E&M 2019-08-09 08:03:05 14 /min [facility] pulse rate 2019-08-09 08:03:05 77 /min [facility] temperature site 2019-08-09 08:03:05 oral Lega cy Replaced By [facility] temperature E&M 2019-08-09 08:03:05 98.0 [degF] Legac y Replaced By [facility] weight E&M 2019-08-09 08:03:05 160.40 [lb_av] [facility] weight in kilograms E&M 2019-08-09 08:03:05 72.91 kg [facility] height in centimeters E&M 2019-08-09 08:03:05 152.40 cm [facility] Body Temperature 2019-07-18 13:10:00 97.8 [degF] [facility] oxygen saturation, oximetry 2019-05-11 08:20:10 95 % [facility] blood pressure, diastolic 2019-05-11 08:20:10 66 mm[Hg] [facility] blood pressure, systolic 2019-05-11 08:20:10 135 mm[Hg] [facility] respiratory rate E&M 2019-05-11 08:20:10 16 /min [facility] pulse rate 2019-05-11 08:20:10 80 /min [facility] temperature site 2019-05-11 08:20:10 oral Lega [facility] temperature E&M 2019-05-11 08:20:10 97.8 [degF] Legac [facility] weight E&M 2019-05-11 08:20:10 161 [lb_av] [facility] weight in kilograms E&M 2019-05-11 08:20:10 73.18 kg [facility] height in centimeters E&M 2019-05-11 08:20:10 152.40 cm [facility] oxygen saturation, oximetry 2019-02-28 10:38:19 98 % [facility] blood pressure, diastolic 2019-02-28 10:38:19 83 mm[Hg] [facility] blood pressure, systolic 2019-02-28 10:38:19 160 mm[Hg] [facility] respiratory rate E&M 2019-02-28 10:38:19 14 /min [facility] pulse rate 2019-02-28 10:38:19 70 /min [facility] temperature site 2019-02-28 10:38:19 oral Lega cy Replaced By [facility] temperature E&M 2019-02-28 10:38:19 98.0 [degF] Legac y Replaced By [facility] weight E&M 2019-02-28 10:38:19 163 [lb_av] [facility] weight in kilograms E&M 2019-02-28 10:38:19 74.09 kg [facility] height in centimeters E&M 2019-02-28 10:38:19 152.40 cm [facility] oxygen saturation, oximetry 2019-02-15 09:56:08 98 % [facility] blood pressure, diastolic 2019-02-15 09:56:08 79 mm[Hg] [facility] blood pressure, systolic 2019-02-15 09:56:08 155 mm[Hg] [facility] pulse rate 2019-02-15 09:56:08 71 /min [facility] temperature E&M 2019-02-15 09:56:08 98.0 [degF] Legac [facility] temperature site 2019-02-15 09:56:08 oral Lega [facility] height in centimeters E&M 2019-02-15 09:56:08 152.40 cm [facility] blood pressure, diastolic 2019-02-08 14:17:49 84 mm[Hg] [facility] blood pressure, systolic 2019-02-08 14:17:49 190 mm[Hg] [facility] oxygen saturation, oximetry 2019-02-08 14:17:49 98 % [facility] pulse rate 2019-02-08 14:17:49 76 /min [facility] temperature E&M 2019-02-08 14:17:49 97.6 [degF] Legac [facility] weight E&M 2019-02-08 14:17:49 162.40 [lb_av] [facility] weight in kilograms E&M 2019-02-08 14:17:49 73.82 kg [facility] height in centimeters E&M 2019-02-08 14:17:49 152.40 cm [facility] temperature site 2019-02-08 14:17:49 oral Lega [facility] Procedures Procedure Date / Time Performed Performing Clinician [facility] Computed tomography of brain without radiopaque contrast 2020-01 00:00:00 [facility] COLONOSCOPY W/LESION REMOVAL 2019-07-18 00:00:00 [facility] COLONOSCOPY W/LESION REMOVAL 2019-07-18 00:00:00 [facility] US abdomen complete 2019-06-27 00:00:00 [facility] First Vx - Ix admin via ID IM or jet injects without c ounseling by physician 2019-02-28 12:19:[address] [facility] Fluzone Quadrivalent IM Prefilled Syringe 0.5 mL (PF) 2018-05 12:19:[address] [facility] Vaccines Ordered - Print Consent/Declination Forms 1 11:08:[address] [facility] Plan of Care Planned Activity Planned Date Details Comments Source Instructions Lymphadenopathy [facility] Encounters Start Date/Time End Date/Time Encounter Type Admission Type Attendi [facility] Care Department Encounter ID Source 2020-02-24 10:10:00 2020-02-24 11:34:00 Departed Emergency Room 1 AMI ESPARZA [facility] [id number] [facility] 2019-12-04 00:00:00 2019-12-04 00:00:00 Office Visit Goyo Hickman [facility] Encounter/[id number] [facility] 2019-12-04 00:00:00 2019-12-04 00:00:00 Office Visit Goyo Hickman [facility] Encounter/[id number] [facility] 2019-11-28 00:00:00 2019-11-28 00:00:00 Office Visit Status, Fax [facility] Encounter/[id number] [facility] 2019-11-28 00:00:00 2019-11-28 00:00:00 Office Visit Status, Fax [facility] Encounter/[id number] [facility] 2019-11-28 00:00:00 2019-11-28 00:00:00 Office Visit Status, Fax [facility] Encounter/[id number] [facility] 2019-11-28 00:00:00 2019-11-28 00:00:00 Office Visit Angeli Mack Shakira Vasquez, Adriana [facility] Encounter/[id number] [facility] 2019-11-24 00:00:00 2019-11-24 00:00:00 Office Visit Janelle Pino Luis E [facility] Encounter/[id number] [facility] 2019-10-17 00:00:00 2019-10-17 00:00:00 Office Visit Goyo Hickman [facility] Encounter/[id number] [facility] 2019-10-12 00:00:00 2019-10-12 00:00:00 Office Visit Angeli Mack MedAdherence,Demetris [facility] Encounter/[id number] [facility] 2019-10-04 00:00:00 2019-10-04 00:00:00 Office Visit Goyo Hickman [facility] Encounter/[id number] [facility] 2019-10-02 00:00:00 2019-10-02 00:00:00 Office Visit Goyo Hickman [facility] Encounter/[id number] [facility] 2019-08-10 00:00:00 2019-08-10 00:00:00 Office Visit Status, Fax [facility] Encounter/[id number] [facility] 2019-08-10 00:00:00 2019-08-10 00:00:00 Office Visit Status, Fax [facility] Encounter/[id number] [facility] 2019-08-10 00:00:00 2019-08-10 00:00:00 Office Visit Status, Fax [facility] Encounter/[id number] [facility] 2019-08-09 00:00:00 2019-08-09 00:00:00 Office Visit Goyo Hickman [facility] Encounter/[id number] [facility] 2019-08-09 00:00:00 2019-08-09 00:00:00 Office Visit Angeli Mack Shakira Vasquez, Adriana [facility] Encounter/[id number] [facility] 2019-07-18 09:23:00 2019-07-18 09:23:00 Registered Surgical Day Care [facility] [id number] [facility] 2019-07-18 00:00:00 2019-07-18 00:00:00 Office Visit Goyo Hickman [facility] Encounter/[id number] [facility] 2019-07-14 00:00:00 2019-07-14 00:00:00 Office Visit Angeli Mack Stephanie [facility] Encounter/[id number] [facility] 2019-07-14 00:00:00 2019-07-14 00:00:00 Office Visit Angeli Mack Stephanie [facility] Encounter/[id number] [facility] 2019-06-27 12:11:00 2019-06-27 12:11:00 Registered Clinic 3 KACIE QUINN [facility] [id number] [facility] 2019-06-27 00:00:00 2019-06-27 00:00:00 Office Visit Goyo iHckman [facility] Encounter/[id number] [facility] 2019-06-23 00:00:00 2019-06-23 00:00:00 Office Visit Goyo Hickman [facility] Encounter/[id number] [facility] 2019-06-23 00:00:00 2019-06-23 00:00:00 Office Visit Goyo Hickman [facility] Encounter/[id number] [facility] 2019-06-12 00:00:00 2019-06-12 00:00:00 Office Visit Angeli Mack Riana [facility] Encounter/[id number] [facility] 2019-06-07 00:00:00 2019-06-07 00:00:00 Office Visit VickGoyo siddiqui [facility] Encounter/[id number] [facility] 2019-05-15 00:00:00 2019-05-15 00:00:00 Office Visit Vick Goyo watson [facility] Encounter/[id number] [facility] 2019-05-12 00:00:00 2019-05-12 00:00:00 Office Visit Vick Goyo watson [facility] Encounter/[id number] [facility] 2019-05-12 00:00:00 2019-05-12 00:00:00 Office Visit Status, Fax [facility] Encounter/[id number] [facility] 2019-05-12 00:00:00 2019-05-12 00:00:00 Office Visit Status, Fax [facility] Encounter/[id number] [facility] 2019-05-12 00:00:00 2019-05-12 00:00:00 Office Visit Status, Fax [facility] Encounter/[id number] [facility] 2019-05-12 00:00:00 2019-05-12 00:00:00 Office Visit Riccardo Mena [facility] Encounter/[id number] [facility] 2019-05-12 00:00:00 2019-05-12 00:00:00 Office Visit Riccardo Mena [facility] Encounter/[id number] [facility] 2019-05-12 00:00:00 2019-05-12 00:00:00 Office Visit Goyo Hickman [facility] Encounter/[id number] [facility] 2019-05-12 00:00:00 2019-05-12 00:00:00 Office Visit Micheline bryantcaydenAngeli Shakira [facility] Encounter/[id number] [facility] 2019-05-12 00:00:00 2019-05-12 00:00:00 Office Visit Goyo Hickman LILLIAN [facility] Encounter/[id number] [facility] 2019-05-12 00:00:00 2019-05-12 00:00:00 Office Visit Goyo Hcikman watson [facility] Encounter/[id number] [facility] 2019-05-11 00:00:00 2019-05-11 00:00:00 Office Visit Angeli Mack Adriana [facility] Encounter/[id number] [facility] 2019-05-11 00:00:00 2019-05-11 00:00:00 Office Visit Angeli Mack Adriana [facility] Encounter/[id number] [facility] 2019-05-11 00:00:00 2019-05-11 00:00:00 Office Visit Status, Fax [facility] Encounter/[id number] [facility] 2019-05-11 00:00:00 2019-05-11 00:00:00 Office Visit Janelle Pino Darin D [facility] Encounter/[id number] [facility] 2019-05-11 00:00:00 2019-05-11 00:00:00 Office Visit Vick, Goyo watson [facility] Encounter/[id number] [facility] 2019-05-11 00:00:00 2019-05-11 00:00:00 Office Visit Angeli Mack Shakira Vasquez, Adriana [facility] Encounter/[id number] [facility] 2019-05-04 00:00:00 2019-05-04 00:00:00 Office Visit Janelle Pino Angelo S [facility] Encounter/[id number] [facility] 2019-04-17 00:00:00 2019-04-17 00:00:00 Office Visit Leigh Roth [facility] Encounter/[id number] [facility] 2019-04-17 00:00:00 2019-04-17 00:00:00 Office Visit Leigh Roth [facility] Encounter/[id number] [facility] 2019-02-28 00:00:00 2019-02-28 00:00:00 Office Visit Goyo Hickman [facility] Encounter/[id number] [facility] 2019-02-28 00:00:00 2019-02-28 00:00:00 Office Visit Goyo Hickman [facility] Encounter/[id number] [facility] 2019-02-28 00:00:00 2019-02-28 00:00:00 Office Visit Angeli Mack Adriana [facility] Encounter/[id number] [facility] 2019-02-24 00:00:00 2019-02-24 00:00:00 Office Visit Status, Fax [facility] Encounter/[id number] [facility] 2019-02-24 00:00:00 2019-02-24 00:00:00 Office Visit Status, Fax [facility] Encounter/[id number] [facility] 2019-02-21 00:00:00 2019-02-21 00:00:00 Office Visit Riccardo Mena [facility] Encounter/[id number] [facility] 2019-02-20 00:00:00 2019-02-20 00:00:00 Office Visit Goyo Hickman [facility] Encounter/[id number] [facility] 2019-02-15 00:00:00 2019-02-15 00:00:00 Office Visit Angeli Mack Adriana [facility] Encounter/[id number] [facility] 2019-02-15 00:00:00 2019-02-15 00:00:00 Office Visit Goyo Hickman [facility] Encounter/[id number] [facility] 2019-02-15 00:00:00 2019-02-15 00:00:00 Office Visit Angeli Mack Dulce Vasquez, Adriana [facility] Encounter/[id number] [facility] 2019-02-10 00:00:00 2019-02-10 00:00:00 Office Visit Janelle Pino, Madyson Gibson, Charo Lechuga, Barbara Sullivan [facility] Encounter/[id number] [facility] 2019-02-09 00:00:00 2019-02-09 00:00:00 Office Visit Status, Fax [facility] Encounter/[id number] [facility] 2019-02-09 00:00:00 2019-02-09 00:00:00 Office Visit Status, Fax [facility] Encounter/[id number] [facility] 2019-02-09 00:00:00 2019-02-09 00:00:00 Office Visit Status, Fax [facility] Encounter/[id number] [facility] 2019-02-08 00:00:00 2019-02-08 00:00:00 Office Visit Ayaan Mcgill [facility] Encounter/[id number] [facility] 2019-02-08 00:00:00 2019-02-08 00:00:00 Office Visit [place] Dulce McIntyre, Shakira [facility] Encounter/[id number] [facility] 2019-02-03 23:48:00 2019-02-05 17:59:00 Discharged Inpatient 1 CADEN BALDERAS [facility] [id number] [facility] 2019-02-05 00:00:00 2019-02-05 00:00:00 Office Visit Goyo Hickman [facility] Encounter/[id number] [facility] 2018-10-08 11:14:00 2018-10-08 14:08:00 Departed Emergency Room [facility] [id number] [facility] 2018-04-06 00:00:00 2018-04-06 00:00:00 Office Visit Goyo Hickman [facility] Encounter/[id number] [facility] Results Test Description Test Time Test Comments Results Result Comments Source CT BRAIN WO 2020-02-24 10:42:00 [facility] [address] [address] Patient Name: DEEPA CASAREZ MR #: [id number] : 1950 Age/Sex: 70/F Req #: [id number] Adm Physician: Ordered by: AMI ESPARZA MD Report #: [id number] Location: ER Room/Bed: Procedure: [id number] CT/CT BRAIN WO Exam Date: 02/24/20 Exam Time: 1010 REPORT STATUS: Signed CT BRAIN WO HISTORY: Headache COMPARISON: MRI of the brain 02/03/[address] 02/03/2019 Technique: Noncontrast axial scans were obtained from skull base to the vertex. Coronal and sagittal reconstructions obtained from the axial data. One or more of the following dose reduction techniques were used: Automated exposure control, adjustment of the mA and/or kV according to patient size, and/or utilization of iterative reconstruction technique. DISCUSSION: Scalp/Skull: Unremarkable. Brain sulci: Age-appropriate. Ventricles: Normal in size and configuration. Extra-axial spaces: No masses or fluid collections. Carotid siphon calcifications are present. Parenchyma: Mild bilateral deep white matter hypodensity is likely chronic microvascular ischemic change. There is an old small cortical infarct in the in the medial right occipital lobe (lingual gyrus). Otherwise, no masses, hemorrhage, or large vascular territory acute infarct. Dural sinuses: No abnormal densities. Sellar/Suprasellar region: Intact. Skull base: Intact. Incidental findings: Minimal scattered paranasal sinus mucosal thickening. IMPRESSION: 1. No acute intracranial abnormalities. 2. Mild supratentorial chronic microvascul ar ischemic change. 3. 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 Signed by: Dr. Chris Celeste M.D. on 02/24/2020 10:49 AM Dictated By: CHRIS CELESTE MD 48 Transcribed By: HARSHAL on 02/24/201048 COPY TO: AMI ESPARZA MD Streptococcus pyogenes antigen detection in throat 2020-01-31 10:00:00 Test Item Group A Streptococcus Screen (test code = 50177-4) NEGATIVE NEG ATIVE [facility], blood, as % of total bntldbvutf7798-84-23 08:03:05* Test Item Value Reference Range Interpretation Comments hemoglobin A1C, blood, as % of total hemoglobin (test code = 4548-4 ) 6.4 % [facility] blood glucose measurement by glucometer (mass/volume)2019-07-18 09:56:00* Test Item Value Reference Range Interpretation Comments Bedside Glucose (test code = 63575-8) 94 70-120 Meter ID: [id number] Medical CenterBlood leukocytes automated count (number/volume)2019-07-12 12:15:00* Test Item Value Reference Range Interpretation Comments White Blood Count (test code = 6690-2) 8.03 4.8-10.8 [facility] CenterBlood erythrocytes automated count (number/volume)2019-07-12 12:15:00* Test Item Value Reference Range Interpretation Comments Red Blood Count (test code = 789-8) 4.36 3.6-5.1 [facility] CenterBlood hemoglobin measurement (moles/volume)2019-07-12 12:15:00* Test Item Value Reference Range Interpretation Comments Hemoglobin (test code = 72151-1) 12.4 12.0-16.0 [facility] CenterAutomated blood hematocrit (volume fraction)2019-07-12 12:15:00* Test Item Value Reference Range Interpretation Comments Hematocrit (test code = 4544-3) 37.9 34.2-44.1 [facility] CenterAutomated erythrocyte mean corpuscular tpwajg5186-10-80 12:15:00* Test Item Value Reference Range Interpretation Comments Mean Corpuscular Volume (test code = 787-2) 86.9 81-99 [facility] CenterAutomated erythrocyte mean corpuscular hemoglobin (mass per erythrocyte)2019-07-12 12:15:00* Test Item Value Reference Range Interpretation Comments Mean Corpuscular Hemoglobin (test code = 785-6) 28.4 28-32 [facility] CenterAutomated erythrocyte mean corpuscular hemoglobin concentration measurement (mass/volume)2019-07-12 12:15:00* Test Item Value Reference Range Interpretation Comments Mean Corpuscular Hemoglobin Concent (test code = 786-4) 32.7 31-35 [facility] CenterRDW GvnXz-Rce1039-59-12 12:15:00* Test Item Value Reference Range Interpretation Comments Red Cell Distribution Width (test code = 60624-6) 14.9 11.7 -14.4 [facility] CenterAutomated blood platelet count (count/volume)2019-07-12 12:15:00* Test Item Value Reference Range Interpretation Comments Platelet Count (test code = 777-3) 319 140-360 [facility] CenterAutformerly [facility] hospitaled blood segmented neutrophil count as percentage of total avskxmccac7624-41-44 12:15:00* Test Item Value Reference Range Interpretation Comments Neutrophils (%) (Auto) (test code = 29256-7) 62.0 38.7-80.0 [facility] CenterAutomated blood lymphocyte count as percentage ot total yukehbztmh6093-72-59 12:15:00* Test Item Value Reference Range Interpretation Comments Lymphocytes (%) (Auto) (test code = 736-9) 26.5 18.0-39.1 [facility] CenterAutformerly [facility] hospitaled blood monocyte count as percentage of total xuolkbucct6080-73-66 12:15:00* Test Item Value Reference Range Interpretation Comments Monocytes (%) (Auto) (test code = 5905-5) 6.8 4.4-11.3 [facility] CenterAutomated blood eosinophil count as percentage of total yyjmfnshow8364-45-06 12:15:00* Test Item Value Reference Range Interpretation Comments Eosinophils (%) (Auto) (test code = 713-8) 3.5 0.0-6.0 [facility] CenterAutomated blood basophil count as percentage of total ooyznhqlhn4932-31-44 12:15:00* Test Item Value Reference Range Interpretation Comments Basophils (%) (Auto) (test code = 706-2) 0.7 0.0-1.0 [facility] CenterFluoroscopic procedure less than one hour jzahahdi1882-08-12 12:15:00* Test Item Value Reference Range Interpretation Comments IM GRANULOCYTES % (test code = IM GRANULOCYTES %) 0.5 0.0- 1.0 [facility] CenterAutomated blood neutrophil count 2019-07-12 12:15:00* Test Item Value Reference Range Interpretation Comments Neutrophils # (Auto) (test code = 751-8) 5.0 2.1-6.9 [facility] CenterBlood lymphocytes count (number/volume) 2019-07-12 12:15:00* Test Item Value Reference Range Interpretation Comments Lymphocytes # (Auto) (test code = 37986-5) 2.1 1.0-3.2 [facility] CenterBlood monocytes automated count (number/volume)2019-07-12 12:15:00* Test Item Value Reference Range Interpretation Comments Monocytes # (Auto) (test code = 742-7) 0.6 0.2-0.8 [facility] CenterAutomated blood eosinophil count 2019-07-12 12:15:00* Test Item Value Reference Range Interpretation Comments Eosinophils # (Auto) (test code = 711-2) 0.3 0.0-0.4 [facility] CenterAutomated blood basophil count (count/volume)2019-07-12 12:15:00* Test Item Value Reference Range Interpretation Comments Basophils # (Auto) (test code = 704-7) 0.1 0.0-0.1 [facility] CenterFluoroscopic procedure less than one hour vcupgzga2324-60-74 12:15:00* Test Item Value Reference Range Interpretation Comments Absolute Immature Granulocyte (auto (lan t code = Absolute Immature Granulocyte (auto) 0.04 0-0.1 [facility] CenterUS ABDOMEN SFRGELOT3976-14-26 14:07:00 [facility] [address] [place] [address] Patient Name: DEEPA CASAREZ MR #: [id number] : [birth year] Age/Sex: 69/F Req #: [id number] Adm Physician: Ordered by: KACIE QUINN MD Report #: [id number] Location: Room/Bed: Procedure: [id number] US/U S ABDOMEN COMPLETE Exam Date: 06/27/19 Exam Time: 13 40 REPORT STATUS: Signed EXAM: U S ABDOMEN COMPLETE DATE: 06/27/2019 1:18 PM INDICATION: Epigastric abdomi nal pain COMPARISON: None TECHNIQUE: Transverse and longitudinal poole scale and color doppler sonographic images of the upper abdomen were obtained. FINDINGS: LIVER 15.5 cm in the right midclavicular line. Mildly increased echogenicity of the liver with normal contour, no masses. SPLEEN 9.9 cm in maximum diameter. Normal echogenicity, no masses. GALLBLADDER No gallbladder wall thickening, distension, stone, or pericholecystic fluid. Negative reported sonographic Nguyen's sign. The gallbladder wall measures 3mm BILE DUCTS No intra nor extra-hepatic biliary dilation. Common bile du ct measures 4mm PANCREAS: Visualized portions are normal. RIGHT KIDNEY : 11.5 cm Echogenicity: Normal Collecting System: No hydronephrosis Stone s: None Cyst/Mass: None LEFT KIDNEY: 9.9 cm Echogenicity: Normal Col lecting System: No hydronephrosis Stones: None Cyst/Mass: None VESSEL S: Aorta: Visualized portions are within normal size limits Inferior Vena Ca va: Visualized portions are normal Main Portal Vein: 0.9 cm, normal size with hepatopetal flow. FREE FLUID: None IMPRESSION: No acute sonographic findings. Mild hepatic steatosis. Signed by: Viktoria Marin MD on 06/27/19 2:08 PM Dictated By: VIKTORIA MARIN MD 07 Transcribed By: HARSHAL on 06/27/191407 COPY TO: KACIE QUINN MD SCR MAMM BILATERAL TAMIKO CAD [id number] 09:55:59 - SCR MAMM BILATERAL TAMIKO CAD DIGITALBILATERAL DIGITAL SCREENING MAMMOGRAM 3D/2 D WITH CAD: 06/16/2019CLINICAL: Asymptomatic. Digital breast tomosynthesis was p erformed in addition to routine CC and MLO views. Current mammographic images w ere evaluated by either a [employer] M-Vu or a [employer] ImageChecker CAD (computer ai ded detection system). Comparison is made to exams dated 03/02/2018 mammogram, 03/20/2014 mammogram, and 03/21/2013 mammogram - [facility]. Th ere are scattered fibroglandular tissues in both breasts. No suspicious mass, a rchitectural distortion, malignant type calcification, or lymph node abnormality detected. Breast architecture is stable compared to prior exams.IMPRESSION: NE FLYNNThere is no mammographic evidence of malignancy. Resume annual screening m ammography in one year. Shreyas Gonzales M.D. qn/penrad:06/21/2019 09:55:59 Fire Extinguisher Inspector: Lilian LINRAES, [facility] sent: BIRADS 1-2 Normal Mammogram BI-RADS: 1 Negativevitamin D 25-hydroxy, serum 2019-05-11 09:27:00* Test Item Value Reference Range Interpretation Comments vitamin D 25-hydroxy, serum (test code = 29447-4) 22.2 ng/mL 30.0 -100.0 L [facility]alanine aminotransferase (SGPT), nzblh4259-94-83 09:27:00 * Test Item Value Reference Range Interpretation Comments alanine aminotransferase (SGPT), serum (test code = 1742-6) 26 1/L 0-32 [facility]ate aminotransferase (SGOT), arcgr1489-17-96 09:27:00* Test Item Value Reference Range Interpretation Comments aspartate aminotransferase (SGOT), serum (test code = 1920-8) 29 1/ L 0-40 [facility]burgalkaline phosphatase, cxxpg1099-12-84 09:27:00* Test Item Value Reference Range Interpretation Comments alkaline phosphatase, serum (test code = 1783-0) 111 1/L 39-11 7 [facility]bilirubin, serum, fjtqi0034-56-61 09:27:00* Test Item Value Reference Range Interpretation Comments bilirubin, serum, total (test code = 1975-2) 0.5 mg/dL 0.0-1.2 [facility] Healthalbumin/globulin ratio, xgbmf0288-22-16 09:27:00* Test Item Value Reference Range Interpretation Comments albumin/globulin ratio, serum (test code = 1759-0) 1.6 1.2 -2.2 [facility] Healthglobulin, amkgq5963-71-34 09:27:00* Test Item Value Reference Range Interpretation Comments globulin, serum (test code = 2336-6) 2.9 1.5-4.5 [facility] Healthalbumin, wdnyq6872-70-07 09:27:00* Test Item Value Reference Range Interpretation Comments albumin, serum (test code = 1751-7) 4.5 g/dL 3.6-4.8 [facility] Healthprotein, total, hodmm6057-60-88 09:27:00* Test Item Value Reference Range Interpretation Comments protein, total, serum (test code = 2885-2) 7.4 g/dL 6.0-8.5 [facility] Healthcalcium, lnixb4544-35-52 09:27:00* Test Item Value Reference Range Interpretation Comments calcium, serum (test code = 2000-8) 9.2 mg/dL 8.7-10.3 [facility] dioxide, venous orcpi0730-17-66 09:27:00* Test Item Value Reference Range Interpretation Comments carbon dioxide, venous blood (test code = 2027-1) 26 mmol/L 20-2 9 [facility] Healthchloride, fpiwy0566-84-47 09:27:00* Test Item Value Reference Range Interpretation Comments chloride, serum (test code = 2075-0) 102 mmol/L 96-106 [facility] Healthpotassium, xihms8502-02-27 09:27:00* Test Item Value Reference Range Interpretation Comments potassium, serum (test code = 2823-3) 3.6 mmol/L 3.5-5.2 [facility]sodium, nqxtt7045-90-54 09:27:00* Test Item Value Reference Range Interpretation Comments sodium, serum (test code = 2951-2) 145 mmol/L 134-144 H [facility]burgurea nitrogen/creatinine ratio, walrx2262-60-55 09:27:00 * Test Item Value Reference Range Interpretation Comments urea nitrogen/creatinine ratio, serum (test code = 3097-3) 16 05-27 [facility] HealtheGFR if Fstnefjf5188-79-56 09:27:00* Test Item Value Reference Range Interpretation Comments eGFR if (test code = 95088-3) 106 mL/min/((173/100 ).m2) >59 [facility]burgEstimated Glomerular Filtration Rate (calc)2019-05-11 09:27:00* Test Item Value Reference Range Interpretation Comments Estimated Glomerular Filtration Rate (calc) (test code = 63079-9) 92 mL/min/((173/100).m2) >59 [facility]inine, qxiiw0158-37-01 09:27:00* Test Item Value Reference Range Interpretation Comments creatinine, serum (test code = 2160-0) 0.64 mg/dL 0.57-1.00 [facility]burg[facility]a nitrogen, axsee0239-23-34 09:27:00* Test Item Value Reference Range Interpretation Comments urea nitrogen, blood (test code = 3094-0) 10 mg/dL 8-27 [facility] glucose, pjnckw7700-71-74 09:27:00* Test Item Value Reference Range Interpretation Comments blood glucose, random (test code = 2339-0) 116 mg/dL 65-99 H [facility]burghemoglobin A1C, blood, as % of total rppghtnvpe0386-49-23 11:05:00* Test Item Value Reference Range Interpretation Comments hemoglobin A1C, blood, as % of total hemoglobin (test code = 4548-4) 6.3 % 4.8-5.6 H [facility]burgLDL cholesterol, ldozi0772-21-29 11:05:00* Test Item Value Reference Range Interpretation Comments LDL cholesterol, serum (test code = 2089-1) 58 mg/dL 0-99 [facility]burgvery low density vjeqbeqzrhyg1028-78-87 11:05:00* Test Item Value Reference Range Interpretation Comments very low density lipoproteins (test code = 2091-7) 24 mg/dL 5-4 0 [facility]burgHDL cholesterol, bvbiv1337-89-66 11:05:00* Test Item Value Reference Range Interpretation Comments HDL cholesterol, serum (test code = 2085-9) 53 mg/dL >39 [facility]triglyceride, serum, qtaudxu8483-96-25 11:05:00* Test Item Value Reference Range Interpretation Comments triglyceride, serum, fasting (test code = 2571-8) 120 mg/dL 0-14 9 [facility]burgcholesterol, uewkv6226-49-98 11:05:00* Test Item Value Reference Range Interpretation Comments cholesterol, serum (test code = 2093-3) 135 mg/dL 100-199 [facility]burgalanine aminotransferase (SGPT), xnccj6964-73-32 11:05:00 * Test Item Value Reference Range Interpretation Comments alanine aminotransferase (SGPT), serum (test code = 1742-6) 34 1/L 0-32 H [facility]burgaspartate aminotransferase (SGOT), ndorx0498-32-02 11:05:00* Test Item Value Reference Range Interpretation Comments aspartate aminotransferase (SGOT), serum (test code = 1920-8) 28 1/ L 0-40 [facility]burgalkaline phosphatase, ikafr1801-39-02 11:05:00* Test Item Value Reference Range Interpretation Comments alkaline phosphatase, serum (test code = 1783-0) 115 1/L 39-11 7 [facility]bilirubin, serum, fgotc3084-99-22 11:05:00* Test Item Value Reference Range Interpretation Comments bilirubin, serum, total (test code = 1975-2) 0.5 mg/dL 0.0-1.2 [facility] Healthalbumin/globulin ratio, oviei0824-75-88 11:05:00* Test Item Value Reference Range Interpretation Comments albumin/globulin ratio, serum (test code = 1759-0) 1.4 1.2 -2.2 [facility] Healthglobulin, ugfav4947-98-66 11:05:00* Test Item Value Reference Range Interpretation Comments globulin, serum (test code = 2336-6) 3.1 1.5-4.5 [facility] Healthalbumin, hkwfr2402-28-88 11:05:00* Test Item Value Reference Range Interpretation Comments albumin, serum (test code = 1751-7) 4.4 g/dL 3.6-4.8 [facility]protein, total, gnisf0032-75-84 11:05:00* Test Item Value Reference Range Interpretation Comments protein, total, serum (test code = 2885-2) 7.5 g/dL 6.0-8.5 [facility]calcium, lrgfh9387-22-11 11:05:00* Test Item Value Reference Range Interpretation Comments calcium, serum (test code = 2000-8) 9.2 mg/dL 8.7-10.3 [facility]carbon dioxide, venous dhxos2663-47-15 11:05:00* Test Item Value Reference Range Interpretation Comments carbon dioxide, venous blood (test code = 2027-1) 26 mmol/L 20-2 9 [facility]burgchloride, hcvoc3549-98-38 11:05:00* Test Item Value Reference Range Interpretation Comments chloride, serum (test code = 2075-0) 99 mmol/L 96-106 [facility] Healthpotassium, sjcdu4436-53-45 11:05:00* Test Item Value Reference Range Interpretation Comments potassium, serum (test code = 2823-3) 4.0 mmol/L 3.5-5.2 [facility]sodium, ewnkk0850-07-78 11:05:00* Test Item Value Reference Range Interpretation Comments sodium, serum (test code = 2951-2) 141 mmol/L 134-144 [facility]burgurea nitrogen/creatinine ratio, fbyjb3762-20-49 11:05:00 * Test Item Value Reference Range Interpretation Comments urea nitrogen/creatinine ratio, serum (test code = 3097-3) 31 12-28 H [facility] HarrisburgeGFR if Xwnzszla1873-76-34 11:05:00* Test Item Value Reference Range Interpretation Comments eGFR if (test code = 78112-7) 114 mL/min/((173/100 ).m2) >59 [facility]burgEstimated Glomerular Filtration Rate (calc)2019-02-15 11:05:00* Test Item Value Reference Range Interpretation Comments Estimated Glomerular Filtration Rate (calc) (test code = 81132-6) 98 mL/min/((173/100).m2) >59 [facility]burgcreatinine, rovrt0794-34-55 11:05:00* Test Item Value Reference Range Interpretation Comments creatinine, serum (test code = 2160-0) 0.52 mg/dL 0.57-1.00 L [facility]burgurea nitrogen, ygyus2214-79-17 11:05:00* Test Item Value Reference Range Interpretation Comments urea nitrogen, blood (test code = 3094-0) 16 mg/dL 8-27 [facility]blood glucose, afzoza5338-48-08 11:05:00* Test Item Value Reference Range Interpretation Comments blood glucose, random (test code = 2339-0) 100 mg/dL 65-99 H [facility]burgimmature granulocytes, percentage of total cells, blood 2019-02-15 11:05:00* Test Item Value Reference Range Interpretation Comments immature granulocytes, percentage of total cells, bloo d (test code = 58636-6) 0 % [facility]burgbasophil count, svsluuqq6889-74-77 11:05:00* Test Item Value Reference Range Interpretation Comments basophil count, absolute (test code = 92721-2) 0.0 x10E3/uL 0.0-0.2 [facility]burgEosinophil Absolute Kanip9973-27-71 11:05:00* Test Item Value Reference Range Interpretation Comments Eosinophil Absolute Count (test code = 56418-9) 0.2 X10E3/UL 0.0-0. 4 [facility]burgmonocyte count, blood, jrpbnotcu9342-84-53 11:05:00* Test Item Value Reference Range Interpretation Comments monocyte count, blood, automated (test code = 742-7) 0.5 X10E3/UL 0 .1-0.9 [facility]burglymphocyte count, blood, klfnwzdkx7632-44-71 11:05:00* Test Item Value Reference Range Interpretation Comments lymphocyte count, blood, automated (test code = 731-0) 2.5 X10E3/UL 0.7-3.1 [facility]burgAbsolute Jwjuektzfyu2488-54-07 11:05:00* Test Item Value Reference Range Interpretation Comments Absolute Neutrophils (test code = 00274-3) 6.2 X10E3/UL 1.4-7.0 [facility]burgbasophils as percent of blood sofjjvwerj0018-37-72 11:05:00* Test Item Value Reference Range Interpretation Comments basophils as percent of blood leukocytes (test code = 707-0) 0 % [facility]geosinophils as percent of blood ajkpfozzmx7535-74-76 11:05:00* Test Item Value Reference Range Interpretation Comments eosinophils as percent of blood leukocytes (test code = 713-8) 2 % [facility]burgmonocytes as percent of blood zggyhprtce7810-84-01 11:05:00* Test Item Value Reference Range Interpretation Comments monocytes as percent of blood leukocytes (test code = 5905-5) 5 % [facility]burglymphocytes as percent of blood lhtehxymny8645-61-53 11:05:00* Test Item Value Reference Range Interpretation Comments lymphocytes as percent of blood leukocytes (test code = 736-9) 26 % [facility]burgneutrophils as percent of blood vsrvneltuz8472-87-41 11:05:00* Test Item Value Reference Range Interpretation Comments neutrophils as percent of blood leukocytes (test code = 770-8) 67 % [facility]burgplatelet bhkai3080-43-78 11:05:00* Test Item Value Reference Range Interpretation Comments platelet count (test code = 777-3) 320 X10E3/UL 150-450 [facility]burgred blood cell distribution yjmjr4385-52-05 11:05:00* Test Item Value Reference Range Interpretation Comments red blood cell distribution width (test code = 788-0) 16.0 % 12.3-15.4 H [facility]burgmean corpuscular hemoglobin concentration, LJL1453-41-11 11:05:00* Test Item Value Reference Range Interpretation Comments mean corpuscular hemoglobin concentration, RBC (test code = 786-4) 31.4 G/DL 31.5-35.7 L [facility] corpuscular hemoglobin, CCM6887-70-24 11:05:00* Test Item Value Reference Range Interpretation Comments mean corpuscular hemoglobin, RBC (test code = 785-6) 27.6 pg 2 6.6-33.0 [facility], QOB4537-50-74 11:05:00* Test Item Value Reference Range Interpretation Comments mean corpuscular volume, RBC (test code = 787-2) 88 fL 79-97 [facility]burghematocrit, wadlx6268-97-97 11:05:00* Test Item Value Reference Range Interpretation Comments hematocrit, blood (test code = 4544-3) 42.0 % 34.0-46.6 [facility]burghemoglobin, rdigr6329-37-04 11:05:00* Test Item Value Reference Range Interpretation Comments hemoglobin, blood (test code = 718-7) 13.2 g/dL 11.1-15.9 [facility] Harrisburgerythrocyte (RBC) zaqfm3996-87-75 11:05:00* Test Item Value Reference Range Interpretation Comments erythrocyte (RBC) count (test code = 789-8) 4.79 X10E6/UL 3.77-5.28 [facility]burgleukocyte count, gftdj0501-82-87 11:05:00* Test Item Value Reference Range Interpretation Comments leukocyte count, blood (test code = 6690-2) 9.5 X10E3/UL 3.4-10.8 [facility]burgSodium Bjoil7205-15-22 07:04:00* Test Item Value Reference Range Interpretation Comments Sodium Level (test code = 2951-2) 144 136-145 [facility] CenterPotassium Dclud0370-53-26 07:04:00* Test Item Value Reference Range Interpretation Comments Potassium Level (test code = 2823-3) 3.8 3.5-5.1 [facility] CenterChloride Vwaem3299-29-23 07:04:00* Test Item Value Reference Range Interpretation Comments Chloride Level (test code = 2075-0) 107 98-107 [facility] CenterCarbon Dioxide Ldavj1003-41-20 07:04:00* Test Item Value Reference Range Interpretation Comments Carbon Dioxide Level (test code = 2028-9) 27 22-29 [facility] CenterAnion Zox6327-85-20 07:04:00* Test Item Value Reference Range Interpretation Comments Anion Gap (test code = 10287-8) 13.8 8-16 [facility] CenterBlood Urea Pdhvsqlw2640-89-46 07:04:00* Test Item Value Reference Range Interpretation Comments Blood Urea Nitrogen (test code = 3094-0) 18 7-26 [facility] CenterCreatinine2019-09-07 07:04:00* Test Item Value Reference Range Interpretation Comments Creatinine (test code = 2160-0) 0.73 0.57-1.11 [facility] CenterBUN/Creatinine Edtic5870-26-28 07:04:00* Test Item Value Reference Range Interpretation Comments BUN/Creatinine Ratio (test code = 3097-3) 25 6-25 [facility] CenterEstimat Glomerular Filtration Rate 2019-02-04 07:04:00* Test Item Value Reference Range Interpretation Comments Estimat Glomerular Filtration Rate (test code = 899201443) > 60 >60 Ranges were taken from the National Kidney Disease Education Program and the [facility] [employer] literature.Reference ranges:60 or greater: Wcmjrf14-00 ( for 3 consecutive months): Chronic kidney disease 15 or less: Kidney failureCitizens Medical CenterGlucose Lgenh3869-38-41 07:04:00* Test Item Value Reference Range Interpretation Comments Glucose Level (test code = WFP5835) 134 74-118 H [facility] CenterCalcium Hjhup3028-28-39 07:04:00* Test Item Value Reference Range Interpretation Comments Calcium Level (test code = 46606-8) 9.1 8.4-10.2 [facility] CenterTotal Izoaiosmo6414-26-89 07:04:00* Test Item Value Reference Range Interpretation Comments Total Bilirubin (test code = 1975-2) 0.3 0.2-1.2 [facility] CenterAspartate Amino Transf (AST/SGOT) 2019-02-04 07:04:00* Test Item Value Reference Range Interpretation Comments Aspartate Amino Transf (AST/SGOT) (test code = Aspartate Amino Transf (AST/SGOT)) 29 5-34 [facility] CenterAlanine Aminotransferase (ALT/SGPT) 2019-02-04 07:04:00* Test Item Value Reference Range Interpretation Comments Alanine Aminotransferase (ALT/SGPT) (test code = 1742-6) 31 0-55 [facility] CenterTotal Cwwtpbo4420-74-85 07:04:00* Test Item Value Reference Range Interpretation Comments Total Protein (test code = 2885-2) 6.7 6.5-8.1 [facility] CenterAlbumin2019-09-07 07:04:00* Test Item Value Reference Range Interpretation Comments Albumin (test code = 1751-7) 3.2 3.5-5.0 L [facility] CenterGlobulin2019-09-07 07:04:00* Test Item Value Reference Range Interpretation Comments Globulin (test code = 61862-4) 3.5 2.3-3.5 [facility] CenterAlbumin/Globulin Hrfti4961-02-92 07:04:00 * Test Item Value Reference Range Interpretation Comments Albumin/Globulin Ratio (test code = 1759-0) 0.9 0.8-2.0 [facility] CenterAlkaline Evnsmqwvjvl2779-63-55 07:04:00* Test Item Value Reference Range Interpretation Comments Alkaline Phosphatase (test code = 6768-6) 125 40-150 [facility] CenterFree Bhnmqyrdi3378-04-69 06:47:00* Test Item Value Reference Range Interpretation Comments Free Thyroxine (test code = 3024-7) 0.96 0.8-1.8 [facility] CenterThyroid Stimulating Hormone (TSH) 2019-02-04 06:47:00* Test Item Value Reference Range Interpretation Comments Thyroid Stimulating Hormone (TSH) (test code = 12244-5) 2.934 0.350-4.940 [facility] CenterWhite Blood Mkkor2162-24-40 06:30:00* Test Item Value Reference Range Interpretation Comments White Blood Count (test code = 6690-2) 8.07 4.8-10.8 [facility] CenterRed Blood Xyekw7375-25-43 06:30:00* Test Item Value Reference Range Interpretation Comments Red Blood Count (test code = 789-8) 4.30 3.6-5.1 [facility] CenterHemoglobin2019-09-07 06:30:00* Test Item Value Reference Range Interpretation Comments Hemoglobin (test code = 95145-4) 12.0 12.0-16.0 [facility] CenterHematocrit2019-09-07 06:30:00* Test Item Value Reference Range Interpretation Comments Hematocrit (test code = 4544-3) 37.5 34.2-44.1 [facility] CenterMean Corpuscular Tsxgfk8089-14-05 06:30:00* Test Item Value Reference Range Interpretation Comments Mean Corpuscular Volume (test code = 787-2) 87.2 81-99 [facility] CenterMean Corpuscular Mutsaebdpz4734-42-54 06:30:00* Test Item Value Reference Range Interpretation Comments Mean Corpuscular Hemoglobin (test code = 785-6) 27.9 28-32 L [facility] CenterMean Corpuscular Hemoglobin Concent 2019-02-04 06:30:00* Test Item Value Reference Range Interpretation Comments Mean Corpuscular Hemoglobin Concent (test code = 786-4) 32.0 31-35 [facility] CenterRed Cell Distribution Tbszn2652-60-34 06:30:00* Test Item Value Reference Range Interpretation Comments Red Cell Distribution Width (test code = 46927-7) 16.0 11.7 -14.4 H [facility] CenterPlatelet Chzbt0952-80-84 06:30:00* Test Item Value Reference Range Interpretation Comments Platelet Count (test code = 777-3) 292 140-360 [facility] CenterNeutrophils (%) (Auto)2019-02-04 06:30:00 * Test Item Value Reference Range Interpretation Comments Neutrophils (%) (Auto) (test code = 49892-0) 49.8 38.7-80.0 [facility] CenterLymphocytes (%) (Auto)2019-02-04 06:30:00 * Test Item Value Reference Range Interpretation Comments Lymphocytes (%) (Auto) (test code = 736-9) 36.2 18.0-39.1 [facility] CenterMonocytes (%) (Auto)2019-02-04 06:30:00* Test Item Value Reference Range Interpretation Comments Monocytes (%) (Auto) (test code = 5905-5) 6.9 4.4-11.3 [facility] CenterEosinophils (%) (Auto)2019-02-04 06:30:00 * Test Item Value Reference Range Interpretation Comments Eosinophils (%) (Auto) (test code = 713-8) 6.1 0.0-6.0 H [facility] CenterBasophils (%) (Auto)2019-02-04 06:30:00* Test Item Value Reference Range Interpretation Comments Basophils (%) (Auto) (test code = 706-2) 0.6 0.0-1.0 [facility] CenterIM GRANULOCYTES %2019-02-04 06:30:00* Test Item Value Reference Range Interpretation Comments IM GRANULOCYTES % (test code = IM GRANULOCYTES %) 0.4 0.0- 1.0 [facility] CenterNeutrophils # (Auto)2019-02-04 06:30:00* Test Item Value Reference Range Interpretation Comments Neutrophils # (Auto) (test code = 751-8) 4.0 2.1-6.9 [facility] CenterLymphocytes # (Auto)2019-02-04 06:30:00* Test Item Value Reference Range Interpretation Comments Lymphocytes # (Auto) (test code = 60297-4) 2.9 1.0-3.2 [facility] CenterMonocytes # (Auto)2019-02-04 06:30:00* Test Item Value Reference Range Interpretation Comments Monocytes # (Auto) (test code = 742-7) 0.6 0.2-0.8 [facility] CenterEosinophils # (Auto)2019-02-04 06:30:00* Test Item Value Reference Range Interpretation Comments Eosinophils # (Auto) (test code = 711-2) 0.5 0.0-0.4 H [facility] CenterBasophils # (Auto)2019-02-04 06:30:00* Test Item Value Reference Range Interpretation Comments Basophils # (Auto) (test code = 704-7) 0.1 0.0-0.1 [facility] CenterAbsolute Immature Granulocyte (auto 2019-02-04 06:30:00* Test Item Value Reference Range Interpretation Comments Absolute Immature Granulocyte (auto (lan t code = Absolute Immature Granulocyte (auto) 0.03 0-0.1 [facility] CenterB-Type Natriuretic Lgmrazo5596-95-53 06:30:00* Test Item Value Reference Range Interpretation Comments B-Type Natriuretic Peptide (test code = 25281-2) 11.3 0-100 [facility] CenterTriglycerides Sbwrs9978-03-46 06:18:00* Test Item Value Reference Range Interpretation Comments Triglycerides Level (test code = 2571-8) 141 0-149 [facility] CenterCholesterol Kkfbd1297-27-81 06:18:00* Test Item Value Reference Range Interpretation Comments Cholesterol Level (test code = 2093-3) 149 0-199 Less than 200 mg/dL Low Piks527 - 239 mg/dL Borderline Arcn408 m g/dl and greater High Risk [facility] CenterLDL Sgljxzhgzqz8152-61-94 06:18:00* Test Item Value Reference Range Interpretation Comments LDL Cholesterol (test code = 2089-1) 73 60-130 [facility] CenterHDL Gcitwmrctgi0589-40-95 06:18:00* Test Item Value Reference Range Interpretation Comments HDL Cholesterol (test code = 2085-9) 48 40-60 [facility] CenterCholesterol/HDL Ympuh3471-52-00 06:18:00 * Test Item Value Reference Range Interpretation Comments Cholesterol/HDL Ratio (test code = 9830-1) 3.1 3.0-3.6 [facility] CenterHemoglobin A1c Lmapuhh6524-92-35 06:11:00 * Test Item Value Reference Range Interpretation Comments Hemoglobin A1c Percent (test code = Hemoglobin A1c Percent) 6.1 4.0-7.0 [facility] CenterMRI BRAIN SAN9911-67-12 00:32:00 [facility] [address] [address] Patient Name: DEEPA CASAREZ MR #: [id number] : 1950 Age/Sex: 69/F Req #: [id number] Adm Physician: CADEN BALDERAS MD Ordered by: IBETH SORIA MD Report #: [id number] Location: [facility] Room/Bed: [place] [address] Procedure: [id number] MRI/MRI BRAIN WOW Exam Date: Exam Time: REPORT STATUS: Signed History: Dizziness, right eye droop for 2 days. Comparison studies: CT brain from earlier the . Technique: Pre-contrast: Sagittal T2; axial T1, T2, GRE, DWI, T2 FLAIR Post-contrast: axial , sagittal and coronal T1. Intravenous contrast : 14 cc of MultiHance Findings: Scalp: No abnormal signal. No masses. Bone marrow: Normal in signal intensity. Brain sulci: Appropriate for ag e. Ventricles: Normal in size . No hydrocephalus. Parenchyma: Focal res tricted diffusion associated with T2/FLAIR hyperintensity in right paramedian aspect of the midbrain at the level of superior colliculus in the right periaq ueductal poole matter, represents acute lacunar infarct. Nonspecific bilateral frontoparietal confluent and patchy periventricular, subcortical and deep whit e matter T2/FLAIR hyperintense foci are likely related to small vessel ischemi c changes. No masses or acute hemorrhage. No abnormal enhancement. Supr asellar region: No abnormalities. Craniocervical junction: Patent foramen magn um. No Chiari one malformation. Vessels: Normal flow-voids in the arteries an d sinuses. Incidental findings: Mild T2 hyperintense mucosa in left sphe noid sinus. IMPRESSION: 1. 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 2. Mild supratentorial white matter microvascular ischemic changes. Findi ngs discussed with ER physician Dr. Soria by phone at 12:40 AM on 02/04/2019. Signed by: Dr. Betty Baker M.D. on 02/04/2019 12:48 AM Dictate d By: BETTY BAKER MD COPY TO: IBETH SORIA MD Prothrombin Accd7270-42-52 23:01:00* Test Item Value Reference Range Interpretation Comments Prothrombin Time (test code = 5902-2) 11.9 11.9-14.5 [facility] CenterProthromb Time International Ratio 2019-02-03 23:01:00* Test Item Value Reference Range Interpretation Comments Prothromb Time International Ratio (test code = 6301-6) 0.83 Oral Anticoagulant Therapy INR Values:1. Low Intensity Therapy 1.5 - 2.02 . Moderate Intensity Therapy 2.0 - 3.03. High Intensity Therapy(1) 2.5 - 3. 54. High Intensity Therapy(2) 3.0 - 4.05. Panic Value INR > 5.0 [facility] CenterCT BRAIN HW9601-88-76 22:45:00 [place] [address] Patient Name: DEEPA CASAREZ MR #: [id number] : 1950 Age/Sex: 69/F Req #: [id number] Adm Physician: Ordered by: IBETH SORIA MD Report #: [id number] Location: Room/Bed: Procedure: C T/CT BRAIN WO Exam Date: 02/03/19 Exam Time: 2204 REPORT STATUS: Signed EXAMINATION: Head CT without contrast. HISTORY:Right eye drooping. COMPARISON :None. TECHNIQUE: Multidetector axial images were obtained from the foramen ma gnum to the vertex without contrast. The images were reconstructed using brain and bone algorithms. Thin section brain images were reformatted into coronal and sagittal planes. Dose modulation, iterative reconstruction, and/or weig ht based adjustment of the mA/kV was utilized to reduce the radiation dose to as low as reasonably achievable. Intravenous contrast: None IMAGE QUALITY: Suboptimal evaluation due to motion related artifacts. FINDINGS: Skull/scalp: No lytic or blastic. lesions. No surgical changes. Pare nchyma: Nonspecific few, scattered supratentorial white matter hypodensity are likely related to small vessel ischemic changes. No acute hemorrhage, mass or acute major vascular territorial infarct. Arteries: No density suggestive of thrombosis. Dural sinuses: No abnormal density suggestive of thromb osis. Ventricles: No hydrocephalus or displacement. Extra-axial spa roman: No abnormal density. Brain volume: Normal for age. Craniocerv ical junction: No mass, Chiari malformation, or basilar invagination. Se lla: No mass. Paranasal/mastoid sinuses: Mild mucosal thickening in left sphenoid sinus. IMPRESSION: Suboptimal evaluation due to motion artifa cts, despite the limitation no gross acute intracranial abnormality. Mild supratentorial white matter microvascular ischemic changes. Signed b y: Dr. Betty Baker M.D. on 02/03/2019 10:50 PM Dictated By: BETTY BAKER MD 49 Transcr ibed By: HARSHAL on 02/03/192249 COPY TO: IBETH SORIA MD Creatine Kinase UJ1583-07-33 13:19:00* Test Item Value Reference Range Interpretation Comments Creatine Kinase MB (test code = 98029-1) 0.70 0-5.0 [facility] Z4441-57-84 13:19:00* Test Item Value Reference Range Interpretation Comments Troponin I (test code = QTO2634) < 0.001 0-0.300 [facility] CenterCreatine Kinase TY3368-36-95 13:19:00* Test Item Value Reference Range Interpretation Comments Creatine Kinase MB (test code = 07393-6) 0.70 0-5.0 [facility] CenterTropon F8342-23-87 13:19:00* Test Item Value Reference Range Interpretation Comments Troponin I (test code = LOU5935) < 0.001 0-0.300 [facility] CenterCreatine Xvjoax2548-46-47 13:02:00* Test Item Value Reference Range Interpretation Comments Creatine Kinase (test code = 2157-6) 107 29-168 [facility] CenterCreatine Mlwxlh0345-41-56 13:02:00* Test Item Value Reference Range Interpretation Comments Creatine Kinase (test code = 2157-6) 107 29-168 [facility] Botlw9578-34-06 12:27:00* Test Item Value Reference Range Interpretation Comments Sodium Level (test code = 2951-2) 139 136-145 [facility] CenterPotassium Qxhja0067-01-39 12:27:00* Test Item Value Reference Range Interpretation Comments Potassium Level (test code = 2823-3) 3.9 3.5-5.1 [facility] CenterChloride Mbtcq2023-89-74 12:27:00* Test Item Value Reference Range Interpretation Comments Chloride Level (test code = 2075-0) 105 98-107 [facility] CenterCarbon Dioxide Rdfpo4742-96-61 12:27:00* Test Item Value Reference Range Interpretation Comments Carbon Dioxide Level (test code = 2028-9) 23 22-29 [facility] CenterAnion Hkb1665-82-71 12:27:00* Test Item Value Reference Range Interpretation Comments Anion Gap (test code = 04135-4) 14.9 8-16 [facility] CenterBlood Urea Qkovbchs3365-46-49 12:27:00* Test Item Value Reference Range Interpretation Comments Blood Urea Nitrogen (test code = 3094-0) 13 7-26 [facility] CenterCreatinine2019-05-11 12:27:00* Test Item Value Reference Range Interpretation Comments Creatinine (test code = 2160-0) 0.76 0.57-1.11 [facility] CenterBUN/Creatinine Xqcxt4695-62-57 12:27:00* Test Item Value Reference Range Interpretation Comments BUN/Creatinine Ratio (test code = 3097-3) 17 6- [facility] CenterEstimat Glomerular Filtration Rate 2018-10-08 12:27:00* Test Item Value Reference Range Interpretation Comments Estimat Glomerular Filtration Rate (test code = 293499051) > 60 >60 Ranges were taken from the National Kidney Disease Education Program and the [facility] literature.Reference ranges:60 or greater: Ryeuyt63-79 ( for 3 consecutive months): Chronic kidney disease 15 or less: Kidney failureCitizens Medical CenterGlucose Qzuth1471-22-06 12:27:00* Test Item Value Reference Range Interpretation Comments Glucose Level (test code = TFN1094) 167 74-118 H [facility] CenterCalcium Ogtxl1471-10-49 12:27:00* Test Item Value Reference Range Interpretation Comments Calcium Level (test code = 15107-7) 9.3 8.4-10.2 [facility] CenterMagnesium Dakeb8613-61-86 12:27:00* Test Item Value Reference Range Interpretation Comments Magnesium Level (test code = 57992-4) 2.1 1.3-2.1 [facility] CenterTotal Yhzddbupq3044-89-84 12:27:00* Test Item Value Reference Range Interpretation Comments Total Bilirubin (test code = 1975-2) 0.4 0.2-1.2 [facility] CenterAspartate Amino Transf (AST/SGOT) 2018-10-08 12:27:00* Test Item Value Reference Range Interpretation Comments Aspartate Amino Transf (AST/SGOT) (test code = Aspartate Amino Transf (AST/SGOT)) 28 5-34 [facility] CenterAlanine Aminotransferase (ALT/SGPT) 2018-10-08 12:27:00* Test Item Value Reference Range Interpretation Comments Alanine Aminotransferase (ALT/SGPT) (test code = 1742-6) 32 0-55 [facility] CenterTotal Kzvckhw4525-57-92 12:27:00* Test Item Value Reference Range Interpretation Comments Total Protein (test code = 2885-2) 7.7 6.5-8.1 [facility] CenterAlbumin2019-05-11 12:27:00* Test Item Value Reference Range Interpretation Comments Albumin (test code = 1751-7) 3.9 3.5-5.0 [facility] CenterGlobulin2019-05-11 12:27:00* Test Item Value Reference Range Interpretation Comments Globulin (test code = 80638-6) 3.8 2.3-3.5 H [facility] CenterAlbumin/Globulin Nmnqf1797-40-33 12:27:00 * Test Item Value Reference Range Interpretation Comments Albumin/Globulin Ratio (test code = 1759-0) 1.0 0.8-2.0 [facility] CenterAlkaline Ssgytnsuwxj4768-31-07 12:27:00* Test Item Value Reference Range Interpretation Comments Alkaline Phosphatase (test code = 6768-6) 101 40-150 [facility] CenterMagnesium Aqptb8323-92-14 12:27:00* Test Item Value Reference Range Interpretation Comments Magnesium Level (test code = 71776-7) 2.1 1.3-2.1 [facility] CenterUrine PBS8788-64-18 12:22:00* Test Item Value Reference Range Interpretation Comments Urine WBC (test code = 5821-4) 11-20 0-5 H [facility] CenterUrine XVY8003-52-61 12:22:00* Test Item Value Reference Range Interpretation Comments Urine RBC (test code = 69716-5) 0-5 0-5 [facility] Xyqcqgvx8880-48-38 12:22:00* Test Item Value Reference Range Interpretation Comments Urine Bacteria (test code = 05135-1) FEW NONE [facility] Epithelial Xmmtm3244-61-13 12:22:00 * Test Item Value Reference Range Interpretation Comments Urine Epithelial Cells (test code = 34185-4) MODERATE NONE [facility] Lsuao5420-69-15 12:22:00* Test Item Value Reference Range Interpretation Comments Urine Mucus (test code = 8247-9) FEW RARE H [facility] INH4960-98-24 12:22:00* Test Item Value Reference Range Interpretation Comments Urine WBC (test code = 5821-4) 11-20 0-5 H [facility] EVW3284-77-30 12:22:00* Test Item Value Reference Range Interpretation Comments Urine RBC (test code = 81848-4) 0-5 0-5 [facility] Gzklxpmj8214-45-05 12:22:00* Test Item Value Reference Range Interpretation Comments Urine Bacteria (test code = 56852-9) FEW NONE [facility] CenterUrine Epithelial Cdqui9788-45-76 12:22:00 * Test Item Value Reference Range Interpretation Comments Urine Epithelial Cells (test code = 78946-4) MODERATE NONE [facility] Ujkuh2884-22-39 12:22:00* Test Item Value Reference Range Interpretation Comments Urine Mucus (test code = 8247-9) FEW RARE H [facility] Fjmxq0121-65-36 12:16:00* Test Item Value Reference Range Interpretation Comments Urine Color (test code = 5778-6) YELLOW YELLOW [facility] Uuorucy6336-52-26 12:16:00* Test Item Value Reference Range Interpretation Comments Urine Clarity (test code = 91640-5) HAZY CLEAR [facility] CenterUrine Specific Wuvwffd9727-22-17 12:16:00 * Test Item Value Reference Range Interpretation Comments Urine Specific [place] (test code = 5811-5) 1.030 1.010-1.02 5 H [facility] kK2667-02-79 12:16:00* Test Item Value Reference Range Interpretation Comments Urine pH (test code = 83328-9) 6 5-7 [facility] Leukocyte Edlmyvxp7229-31-82 12:16:00* Test Item Value Reference Range Interpretation Comments Urine Leukocyte Esterase (test code = 5799-2) NEGATIVE NEGATIVE [facility] Ffeaojy9614-48-45 12:16:00* Test Item Value Reference Range Interpretation Comments Urine Nitrite (test code = 22169-1) NEGATIVE NEGATIVE [facility] Lyxxsau4336-73-06 12:16:00* Test Item Value Reference Range Interpretation Comments Urine Protein (test code = 5804-0) 1+ NEGATIVE H [facility] Glucose (UA)2018-10-08 12:16:00* Test Item Value Reference Range Interpretation Comments Urine Glucose (UA) (test code = 2349-9) NEGATIVE NEGATIVE [facility] Bptdjqh9378-59-22 12:16:00* Test Item Value Reference Range Interpretation Comments Urine Ketones (test code = 84471-0) NEGATIVE NEGATIVE [facility] Ylovhomzswcy1884-39-83 12:16:00* Test Item Value Reference Range Interpretation Comments Urine Urobilinogen (test code = 42707-3) 0.2 0.2-1 [facility] Lxttqsdwd3755-69-83 12:16:00* Test Item Value Reference Range Interpretation Comments Urine Bilirubin (test code = 1978-6) NEGATIVE NEGATIVE [facility] Uqgbs8509-00-36 12:16:00* Test Item Value Reference Range Interpretation Comments Urine Blood (test code = 53645-2) NEGATIVE NEGATIVE [facility] Ilvzj6858-47-56 12:16:00* Test Item Value Reference Range Interpretation Comments Urine Color (test code = 5778-6) YELLOW YELLOW [facility] CenterUrine Ljjmtpe8653-33-94 12:16:00* Test Item Value Reference Range Interpretation Comments Urine Clarity (test code = 37810-3) HAZY CLEAR [facility] CenterUrine Specific Xixppmb6360-66-53 12:16:00 * Test Item Value Reference Range Interpretation Comments Urine Specific [place] (test code = 5811-5) 1.030 1.010-1.02 5 H [facility] CenterUrine yP3546-09-55 12:16:00* Test Item Value Reference Range Interpretation Comments Urine pH (test code = 63928-0) 6 5-7 [facility] CenterUrine Leukocyte Nnlfyvtu5523-12-26 12:16:00* Test Item Value Reference Range Interpretation Comments Urine Leukocyte Esterase (test code = 5799-2) NEGATIVE NEGATIVE [facility] CenterUrine Xscyeta9914-90-67 12:16:00* Test Item Value Reference Range Interpretation Comments Urine Nitrite (test code = 40782-0) NEGATIVE NEGATIVE [facility] CenterUrine Hnijvbh3402-28-89 12:16:00* Test Item Value Reference Range Interpretation Comments Urine Protein (test code = 5804-0) 1+ NEGATIVE H [facility] CenterUrine Glucose (UA)2018-10-08 12:16:00* Test Item Value Reference Range Interpretation Comments Urine Glucose (UA) (test code = 2349-9) NEGATIVE NEGATIVE [facility] CenterUrine Eptrpbq3351-25-21 12:16:00* Test Item Value Reference Range Interpretation Comments Urine Ketones (test code = 06135-8) NEGATIVE NEGATIVE [facility] Kmgeapffgzuy9419-04-95 12:16:00* Test Item Value Reference Range Interpretation Comments Urine Urobilinogen (test code = 61900-7) 0.2 0.2-1 [facility] CenterUrine Ocxquttoa6139-00-04 12:16:00* Test Item Value Reference Range Interpretation Comments Urine Bilirubin (test code = 1978-6) NEGATIVE NEGATIVE [facility] CenterUrine Bizyw5434-48-63 12:16:00* Test Item Value Reference Range Interpretation Comments Urine Blood (test code = 39799-7) NEGATIVE NEGATIVE [facility] CenterWhite Blood Covdv9224-65-67 12:14:00* Test Item Value Reference Range Interpretation Comments White Blood Count (test code = 6690-2) 10.13 4.8-10.8 [facility] CenterRed Blood Oknon5638-80-74 12:14:00* Test Item Value Reference Range Interpretation Comments Red Blood Count (test code = 789-8) 5.04 3.6-5.1 [facility] CenterHemoglobin2019-05-11 12:14:00* Test Item Value Reference Range Interpretation Comments Hemoglobin (test code = 83440-5) 14.3 12.0-16.0 [facility] CenterHematocrit2019-05-11 12:14:00* Test Item Value Reference Range Interpretation Comments Hematocrit (test code = 4544-3) 44.4 34.2-44.1 [facility] Corpuscular [id number] 12:14:00* Test Item Value Reference Range Interpretation Comments Mean Corpuscular Volume (test code = 787-2) 88.1 81-99 [facility] Corpuscular [id number] 12:14:00* Test Item Value Reference Range Interpretation Comments Mean Corpuscular Hemoglobin (test code = 785-6) 28.4 28-32 [facility] Hemoglobin Concent 2018-10-08 12:14:00* Test Item Value Reference Range Interpretation Comments Mean Corpuscular Hemoglobin Concent (test code = 786-4) 32.2 31-35 [facility] Cell Distribution [id number] 12:14:00* Test Item Value Reference Range Interpretation Comments Red Cell Distribution Width (test code = 70708-2) 14.7 11.7 -14.4 H [facility] CenterPlatelet [id number] 12:14:00* Test Item Value Reference Range Interpretation Comments Platelet Count (test code = 777-3) 322 140-360 [facility] CenterNeutrophils (%) (Auto)2018-10-08 12:14:00 * Test Item Value Reference Range Interpretation Comments Neutrophils (%) (Auto) (test code = 04345-0) 63.9 38.7-80.0 [facility] CenterLymphocytes (%) (Auto)2018-10-08 12:14:00 * Test Item Value Reference Range Interpretation Comments Lymphocytes (%) (Auto) (test code = 736-9) 28.6 18.0-39.1 [facility] CenterMonocytes (%) (Auto)2018-10-08 12:14:00* Test Item Value Reference Range Interpretation Comments Monocytes (%) (Auto) (test code = 5905-5) 3.9 4.4-11.3 L [facility] CenterEosinophils (%) (Auto)2018-10-08 12:14:00 * Test Item Value Reference Range Interpretation Comments Eosinophils (%) (Auto) (test code = 713-8) 2.6 0.0-6.0 [facility] CenterBasophils (%) (Auto)2018-10-08 12:14:00* Test Item Value Reference Range Interpretation Comments Basophils (%) (Auto) (test code = 706-2) 0.6 0.0-1.0 [facility] CenterIM GRANULOCYTES %2018-10-08 12:14:00* Test Item Value Reference Range Interpretation Comments IM GRANULOCYTES % (test code = IM GRANULOCYTES %) 0.4 0.0- 1.0 [facility] CenterNeutrophils # (Auto)2018-10-08 12:14:00* Test Item Value Reference Range Interpretation Comments Neutrophils # (Auto) (test code = 751-8) 6.5 2.1-6.9 [facility] CenterLymphocytes # (Auto)2018-10-08 12:14:00* Test Item Value Reference Range Interpretation Comments Lymphocytes # (Auto) (test code = 21887-3) 2.9 1.0-3.2 [facility] CenterMonocytes # (Auto)2018-10-08 12:14:00* Test Item Value Reference Range Interpretation Comments Monocytes # (Auto) (test code = 742-7) 0.4 0.2-0.8 [facility] CenterEosinophils # (Auto)2018-10-08 12:14:00* Test Item Value Reference Range Interpretation Comments Eosinophils # (Auto) (test code = 711-2) 0.3 0.0-0.4 [facility]Basophils # (Auto)2018-10-08 12:14:00* Test Item Value Reference Range Interpretation Comments Basophils # (Auto) (test code = 704-7) 0.1 0.0-0.1 [facility] CenterAbsolute Immature Granulocyte (auto 2018-10-08 12:14:00* Test Item Value Reference Range Interpretation Comments Absolute Immature Granulocyte (auto (lan t code = Absolute Immature Granulocyte (auto) 0.04 0-0.1 [facility] CenterGASTRIC,[id number] 15:57:00 RUN DATE: 02/03/18 [facility] PAGE 1 RUN TIME: 1557 Specimen Inqui ry RUN USER: INTERFACE PATIENT: DEEPA CASAREZ ACCT #: [id number] LOC: [facility] U #: [id number] AGE/SX: 68/F ROOM: [facility] RE01/31/18REG DR: Hung Aguilar MD : 52 BED: A DIS: 02/02/18 STATUS: DIS IN TLOC: SPEC #: [id number] RECD: 02/02/18 STATUS: TRACY GUERRERO #: [id number] SHARDA: 02/01/[address] [facility] [address]: Kofi Brantley MD ENTERED: 02/02/18 SP TYPE: GASTRIC BX OTHR DR: Erick Judd MD, Harry Silvio MDORDERED: GROSS COPIES TO: Erick Hardy MD [address] [facility] [place] [address] Kofi Brantley MD [address] [address] PROCEDURES: GROSS ( 11/15-2403) TISSUES: 1. ANTRUM - BX 2. BODY BIOPSY OF STOMACH 3. ESOPHAGUS, NOS CLINICAL HISTORY COLLECTION DATE: 02/01/18 EPIGASTRIC PAIN, VOMITING FINAL DIAGNOSIS Antrum, biopsy: A CUTE GASTRITIS NO INTESTINAL METAPLASIA SEEN NEGATIVE FOR HELICOBA CTER PYLORI, GIEMSA CONTROL STAINS APPROPRIATELY NEGATIVE FOR MALIGNANCY Body of stomach, biopsy: MILD CHRONIC INFLAMMATION, GASTRIC MUCOSA NO INTESTINAL METAPLASIA SEEN NEGATIVE FOR HELICOBACTER PYLORI, GI EMSA CONTROL STAINS APPROPRIATELY NEGATIVE FOR MALIGNANCY Esophagus , biopsy: REACTIVE EPITHELIAL CHANGES, SQUAMOUS ESOPHAGEAL MUCOSA CONTINUED ON NEXT PAGE RUN DATE: 02/03 [facility] PAGE 2 RUN TIME: 1557 Specimen Inquiry RUN U SER: INTERFACE ------- -----SPEC #: [id number] PATIENT: DEEPA CASAREZ #[id number] (Continued) FINAL DIAGNOSIS (Continued) NEGATIVE FOR METAPLASIA, DYSPLASIA, AND MALIGNANCY [facility]/paulino D [id number], [id number] MACROSCOPIC Specimen (1) is received in formalin, labeled with the patient's name, identified as "antrum bx", and consists of p ink-santiago biopsy tissue measuring 0.35 cm, each, entirely submitted as (1) for H E and giemsa stains. Specimen (2) is received in formalin, labeled with the patient's name, identified as "body of stomach", and consists of three fra gments of santiago biopsy tissue ranging from 0.3 to 0.6 cm each, entirely submitte d as (2) for H E and giemsa stains. Specimen (3) is received in formalin , labeled with the patient's name, identified as "esophagus bx", and consists of light santiago to brown biopsy tissue measuring 0.5 cm in aggregate, entirely giraldo bmitted as (3). GROSS PERFORMED AT [facility] [address] [place] [address] (P)[phone] [place] CROSCOPIC MICROSCOPIC PERFORMED AT [facility] All of the stains , including any controls performed, stain appropriately. [facility] [address] [place] [address] (P)[phone] PERFO RMING SITE Diagnosis performed at: [facility] [address] [place] [address] CONTINUED ON NEXT PAGE RUN DATE: 11/15 [facility] - [facility] PAGE 3 RU N TIME: 1557 Specimen Inquiry RUN USER: INTERFACE ------ ------SPEC #: [id number] PATIENT: DEEPA CASAREZ #[id number] (Continued) Signed SIGNATURE ON FILE Светлана Quesada 02/03/18 8167 END OF REPORT
== END 2020-02-24 11:34 | disposition home or self-care (01) ==
LOC: ER 10:10
DX: R51 Headache (principal); R59.9 Enlarged lymph nodes, unspecified; K08.89 Other specified disorders of teeth and supporting structures; I10 Essential (primary) hypertension; J45.909 Unspecified asthma, uncomplicated
CPT/HCPCS: 70450; 83518; 87070; 99283

== ENCOUNTER 2020-12-07 21:27 | Inpatient (IN) | payer MEDICARE, OTHER ==
[~2020-12-07] VITALS: Ht 152.4 cm; Wt 74.4 kg
[2020-12-07] MEDS ORDERED: MORPHINE SULFATE INJ 4 MG/ML INJ 1ML IV STA (21:57)
[2020-12-07] MEDS ORDERED: ONDANSETRON HCL INJ 2MG/ML 2ML 2 MG/ML VIAL IV STA (21:57)
[2020-12-07] MEDS ORDERED: DICYCLOMINE HCL 20 MG/2 ML VIAL IM ONE (22:00)
[2020-12-07] MEDS ORDERED: SODIUM CHLORIDE 0.9% 1000ML 1,000 ML IV ONE (22:00)
[2020-12-07 22:35] LABS: BASOPHILS # (AUTO) 0.1 (0.0-0.1); BASOPHILS % 0.7 % (0.0-1.0); EOSINOPHILS # (AUTO) 0.3 (0.0-0.4); EOSINOPHILS % 2.4 % (0.0-6.0); HEMATOCRIT 44.7 % (34.2-44.1); HEMOGLOBIN 14.1 g/dL (12.0-16.0); LYMPHOCYTES # (AUTO) 3.5 (1.0-3.2); LYMPHOCYTES % 25.6 % (18.0-39.1); MEAN CORPUSCULAR HEMOGLOBIN 26.6 pg (28-32); MEAN CORPUSCULAR HGB CONC 31.5 g/dL (31-35); MEAN CORPUSCULAR VOLUME 84.2 fL (81-99); MONOCYTES # (AUTO) 0.9 (0.2-0.8); MONOCYTES % 6.7 % (4.4-11.3); NEUTROPHILS # (AUTO) 8.7 (2.1-6.9); NEUTROPHILS % 64.2 % (38.7-80.0); PLATELET COUNT 372 x10e3/uL (140-360); RED BLOOD COUNT 5.31 x10e6/uL (3.6-5.1); RED CELL DISTRIBUTION WIDTH 18.2 % (11.7-14.4)
[2020-12-07] MEDS ORDERED: ALBUTEROL/IPRATROPIUM 3 ML NEB NEB ONE (22:45)
[2020-12-07 22:57] LABS: ALBUMIN 4.2 g/dL (3.5-5.0); ALBUMIN/GLOBULIN RATIO 0.9 (0.8-2.0); ANION GAP 21.9 mmol/L (8-16); CALCIUM 9.2 mg/dL (8.4-10.2); CREATININE, SERUM 0.82 mg/dL (0.57-1.11); POTASSIUM 3.9 mmol/L (3.5-5.1)
[2020-12-07 23:02] LABS: AMYLASE 45 U/L (25-125); LIPASE 24 U/L (8-78)
[2020-12-07 23:04] LABS: CREATINE KINASE MB 0.6 ng/mL (0-5.0)
[2020-12-07 23:08] LABS: CLARITY,URINE CLOUDY (CLEAR); LEUKOCYTE ESTERASE ,URINE TRACE (NEGATIVE); NITRITE,URINE NEGATIVE (NEGATIVE); PROTEIN,URINE DIPSTICK 1+ (NEGATIVE)
[2020-12-07 23:09] LABS: BACTERIA,URINE MANY /HPF; COLOR,URINE AMBER (YELLOW); EPITHELIAL CELLS,URINE MANY /LPF; KETONES,URINE NEGATIVE (NEGATIVE); URINE UROBILINOGEN 0.2 mg/dL (0.2 - 1)
[2020-12-07] MEDS: ALBUTEROL/IPRATROPIUM 3 ML NEB NEB SCH (23:15)
[2020-12-07] MEDS ORDERED: KETOROLAC TROMETHAMINE 30 MG/ML VIAL IV STA (23:43)
[2020-12-07] MEDS ORDERED: CEFTRIAXONE 1 GM in SODIUM CHLORIDE 0.9% 50ML 50 ML IV ONE (23:45)
[2020-12-07] MEDS ORDERED: SODIUM CHLORIDE 0.9% 1000ML 1,000 ML IV SCH (23:45)
[2020-12-08] MEDS ORDERED: METHYLPREDNISOLONE SOD SUCC 125 MG/2ML VIAL IV ONE
[2020-12-08] MEDS ORDERED: ENOXAPARIN INJ 80 MG/0.8 ML SYR SC SCH (00:20)
[2020-12-08] MEDS ORDERED: ENOXAPARIN INJ 80 MG/0.8 ML SYR SC ONE (00:26)
[2020-12-08] MEDS ORDERED: SODIUM CHLORIDE 0.9% 1000ML 1,000 ML IV ONE (00:30)
[2020-12-08 01:23] LABS: INR 0.94; PROTHROMBIN TIME 13.1 seconds (11.9-14.5)
[2020-12-08] MEDS ORDERED: ONDANSETRON HCL INJ 2MG/ML 2ML 2 MG/ML VIAL IV PRN (01:45)
[2020-12-08] MEDS ORDERED: MORPHINE SULFATE INJ 4 MG/ML INJ 1ML IV PRN (01:45)
[2020-12-08] MEDS ORDERED: ACETAMINOPHEN 325 MG TAB PO PRN (01:45)
[2020-12-08] MEDS ORDERED: AZITHROMYCIN 500MG/NS 250 ML 250 ML IV SCH (01:45)
[2020-12-08] MEDS ORDERED: SODIUM CHLORIDE 0.9% 250ML 250 ML ONE (01:59)
[2020-12-08 06:07] LABS: CREATINE KINASE 48 IU/L (29-168)
[2020-12-08] MEDS: ALBUTEROL/IPRATROPIUM 3 ML NEB NEB SCH ×4 (07:30→19:20)
[2020-12-08] MEDS ORDERED: SODIUM CHLORIDE 0.45% 1,000 ML IV SCH (08:45)
[2020-12-08] MEDS ORDERED: AZITHROMYCIN 250MG/NS 100 ML 100 ML IV SCH ×2 (09:30→21:00)
[2020-12-08] MEDS: MONTELUKAST SODIUM 10 MG TAB PO SCH (10:22)
[2020-12-08] MEDS: ENOXAPARIN SOD INJ 40 MG/0.4 ML SYR SC SCH (10:22)
[2020-12-08] MEDS: METOPROLOL TARTRATE 25 MG TAB PO SCH ×2 (10:22→17:00)
[2020-12-08] MEDS: PANTOPRAZOLE SOD 40 MG TABEC PO SCH ×2 (10:22→16:30)
[2020-12-08] MEDS: CEFTRIAXONE 1 GM in SODIUM CHLORIDE 0.9% 50ML 50 ML IV SCH (10:22)
[2020-12-08] MEDS: LOSARTAN POTASSIUM 100 MG TAB PO SCH (10:22)
[2020-12-08] MEDS: AMLODIPINE BESYLATE 10 MG TAB PO SCH (10:22)
[2020-12-08] MEDS: BUDESONIDE/FORMOTEROL 160/4.5MCG INHALER INH SCH ×2 (11:25→19:20)
[2020-12-08 15:00] VITALS: BP 123/63
[2020-12-08 15:54] VITALS: BP 123/66
[2020-12-08 16:00] VITALS: BP 123/66
[2020-12-08] MEDS ORDERED: SODIUM BICARBONATE 8.4% 50 ML in SODIUM CHLORIDE 0.45% 1,000 ML IV SCH (16:30)
[2020-12-08] MEDS: SODIUM BICARBONATE 8.4% 50 ML in SODIUM CHLORIDE 0.45% 1,000 ML IV SCH (17:42)
[2020-12-08 20:00] VITALS: BP 120/65
[2020-12-08] MEDS ORDERED: CEFTRIAXONE 1 GM in SODIUM CHLORIDE 0.9% 50ML 50 ML IV SCH (20:00)
[2020-12-08 21:28] VITALS: BP 120/65
[2020-12-08] MEDS: AZITHROMYCIN IV SCH (21:55)
[2020-12-08] MEDS: SODIUM CHLORIDE 0.9% IV SCH (21:55)
[2020-12-08] MEDS: ATORVASTATIN 10 MG TAB PO SCH (22:46)
[2020-12-09] VITALS (8 sets, daily range): BP systolic 96–128; BP diastolic 58–95
[2020-12-09] MEDS: ALBUTEROL/IPRATROPIUM 3 ML NEB NEB SCH ×6 (03:00→23:00)
[2020-12-09 04:58] LABS: BASOPHILS % 0.2 % (0.0-1.0); HEMATOCRIT 33.3 % (34.2-44.1); LYMPHOCYTES # (AUTO) 2.3 (1.0-3.2); LYMPHOCYTES % 14.3 % (18.0-39.1); MEAN CORPUSCULAR HEMOGLOBIN 26.2 pg (28-32); MEAN CORPUSCULAR HGB CONC 30.6 g/dL (31-35); MEAN CORPUSCULAR VOLUME 85.4 fL (81-99); MONOCYTES % 6.3 % (4.4-11.3); NEUTROPHILS # (AUTO) 12.5 (2.1-6.9); NEUTROPHILS % 77.9 % (38.7-80.0); PLATELET COUNT 290 x10e3/uL (140-360); RED CELL DISTRIBUTION WIDTH 18.3 % (11.7-14.4)
[2020-12-09 05:19] LABS: ANION GAP 11.5 mmol/L (8-16); CALCIUM 7.9 mg/dL (8.4-10.2); CREATININE, SERUM 0.71 mg/dL (0.57-1.11); POTASSIUM 3.5 mmol/L (3.5-5.1)
[2020-12-09 05:22] LABS: HEMOGLOBIN 10.2 g/dL (12.0-16.0)
[2020-12-09] MEDS: SODIUM BICARBONATE 8.4% 50 ML in SODIUM CHLORIDE 0.45% 1,000 ML IV SCH (06:37)
[2020-12-09] MEDS: BUDESONIDE/FORMOTEROL 160/4.5MCG INHALER INH SCH ×2 (08:00→19:30)
[2020-12-09] MEDS: LOSARTAN POTASSIUM 100 MG TAB PO SCH (08:45)
[2020-12-09] MEDS: CEFTRIAXONE 1 GM in SODIUM CHLORIDE 0.9% 50ML 50 ML IV SCH (08:45)
[2020-12-09] MEDS: PANTOPRAZOLE SOD 40 MG TABEC PO SCH ×2 (08:45→16:12)
[2020-12-09] MEDS: METOPROLOL TARTRATE 25 MG TAB PO SCH ×2 (08:45→16:12)
[2020-12-09] MEDS: AMLODIPINE BESYLATE 10 MG TAB PO SCH (08:46)
[2020-12-09] MEDS: METHYLPREDNISOLONE SOD SUCC 40 MG/ML VIAL 1ML IV SCH ×2 (14:06→22:05)
[2020-12-09] MEDS: ENOXAPARIN SOD INJ 40 MG/0.4 ML SYR SC SCH (16:13)
[2020-12-09] MEDS: MONTELUKAST SODIUM 10 MG TAB PO SCH (22:05)
[2020-12-09] MEDS: ATORVASTATIN 10 MG TAB PO SCH (22:05)
[2020-12-09] MEDS: SODIUM CHLORIDE 0.9% IV SCH (22:13)
[2020-12-09] MEDS: AZITHROMYCIN IV SCH (22:13)
[2020-12-10] VITALS (8 sets, daily range): BP systolic 126–142; BP diastolic 65–82
[2020-12-10] MEDS: ALBUTEROL/IPRATROPIUM 3 ML NEB NEB SCH ×6 (03:00→23:17)
[2020-12-10] MEDS: METHYLPREDNISOLONE SOD SUCC 40 MG/ML VIAL 1ML IV SCH (06:01)
[2020-12-10] MEDS: BUDESONIDE/FORMOTEROL 160/4.5MCG INHALER INH SCH ×2 (06:44→19:30)
[2020-12-10] MEDS ORDERED: TRANEXAMIC ACID 1,000 MG/10 ML ML ONE (06:51)
[2020-12-10] MEDS ORDERED: Vancomycin IV 1,000 MG ONE (06:51)
[2020-12-10] MEDS ORDERED: SODIUM CHLORIDE 0.9% 500ML 500 ML ONE (06:52)
[2020-12-10] MEDS ORDERED: HYDROMORPHONE 1MG/1ML INJ ONE (08:04)
[2020-12-10] MEDS: CEFTRIAXONE 1 GM in SODIUM CHLORIDE 0.9% 50ML 50 ML IV SCH (08:51)
[2020-12-10] MEDS: PANTOPRAZOLE SOD 40 MG TABEC PO SCH ×2 (08:51→16:49)
[2020-12-10] MEDS: LOSARTAN POTASSIUM 100 MG TAB PO SCH (08:51)
[2020-12-10] MEDS: AMLODIPINE BESYLATE 10 MG TAB PO SCH (08:52)
[2020-12-10] MEDS: METOPROLOL TARTRATE 25 MG TAB PO SCH ×2 (08:52→16:49)
[2020-12-10] MEDS: ENOXAPARIN SOD INJ 40 MG/0.4 ML SYR SC SCH (16:49)
[2020-12-10] MEDS: ATORVASTATIN 10 MG TAB PO SCH (21:04)
[2020-12-10] MEDS: AZITHROMYCIN IV SCH (21:04)
[2020-12-10] MEDS: SODIUM CHLORIDE 0.9% IV SCH (21:04)
[2020-12-10] MEDS: MONTELUKAST SODIUM 10 MG TAB PO SCH (21:04)
[2020-12-11] VITALS (9 sets, daily range): BP systolic 104–129; BP diastolic 50–65
[2020-12-11] MEDS: ALBUTEROL/IPRATROPIUM 3 ML NEB NEB SCH ×6 (03:00→23:35)
[2020-12-11 05:49] LABS: BASOPHILS % 0.3 % (0.0-1.0); HEMATOCRIT 34.9 % (34.2-44.1); HEMOGLOBIN 10.9 g/dL (12.0-16.0); LYMPHOCYTES # (AUTO) 3.4 (1.0-3.2); LYMPHOCYTES % 22.1 % (18.0-39.1); MEAN CORPUSCULAR HEMOGLOBIN 26.5 pg (28-32); MEAN CORPUSCULAR HGB CONC 31.2 g/dL (31-35); MEAN CORPUSCULAR VOLUME 84.9 fL (81-99); MONOCYTES # (AUTO) 0.8 (0.2-0.8); MONOCYTES % 5.5 % (4.4-11.3); NEUTROPHILS # (AUTO) 10.3 (2.1-6.9); NEUTROPHILS % 67.7 % (38.7-80.0); PLATELET COUNT 307 x10e3/uL (140-360); RED BLOOD COUNT 4.11 x10e6/uL (3.6-5.1); RED CELL DISTRIBUTION WIDTH 18.4 % (11.7-14.4)
[2020-12-11 06:12] LABS: ANION GAP 11.4 mmol/L (8-16); CALCIUM 8.3 mg/dL (8.4-10.2); CREATININE, SERUM 0.66 mg/dL (0.57-1.11); POTASSIUM 3.4 mmol/L (3.5-5.1)
[2020-12-11] MEDS: BUDESONIDE/FORMOTEROL 160/4.5MCG INHALER INH SCH ×2 (07:25→20:10)
[2020-12-11] MEDS: PANTOPRAZOLE SOD 40 MG TABEC PO SCH ×2 (07:30→16:30)
[2020-12-11] MEDS: METOPROLOL TARTRATE 25 MG TAB PO SCH ×2 (09:00→17:00)
[2020-12-11] MEDS: AMLODIPINE BESYLATE 10 MG TAB PO SCH (09:00)
[2020-12-11] MEDS: LOSARTAN POTASSIUM 100 MG TAB PO SCH (09:00)
[2020-12-11] MEDS: CEFTRIAXONE 1 GM in SODIUM CHLORIDE 0.9% 50ML 50 ML IV SCH (09:00)
[2020-12-11] MEDS ORDERED: POTASSIUM CHLORIDE 10MEQ EA PO ONE (09:30)
[2020-12-11] MEDS ORDERED: ONDANSETRON HCL 4 MG ORAL DISINTEGRATING TAB PO PRN (15:00)
[2020-12-11] MEDS: ENOXAPARIN SOD INJ 40 MG/0.4 ML SYR SC SCH (17:00)
[2020-12-11] MEDS: MONTELUKAST SODIUM 10 MG TAB PO SCH (21:42)
[2020-12-11] MEDS: SODIUM CHLORIDE 0.9% IV SCH (21:42)
[2020-12-11] MEDS: ATORVASTATIN 10 MG TAB PO SCH (21:42)
[2020-12-11] MEDS: AZITHROMYCIN IV SCH (21:42)
[2020-12-12] VITALS (7 sets, daily range): BP systolic 118–142; BP diastolic 60–67
[2020-12-12] MEDS: ALBUTEROL/IPRATROPIUM 3 ML NEB NEB SCH ×4 (03:00→19:28)
[2020-12-12] MEDS: BUDESONIDE/FORMOTEROL 160/4.5MCG INHALER INH SCH ×2 (07:15→19:28)
[2020-12-12] MEDS: PANTOPRAZOLE SOD 40 MG TABEC PO SCH ×2 (07:30→16:30)
[2020-12-12] MEDS: AMLODIPINE BESYLATE 10 MG TAB PO SCH (09:00)
[2020-12-12] MEDS: METOPROLOL TARTRATE 25 MG TAB PO SCH ×2 (09:00→16:40)
[2020-12-12] MEDS: LOSARTAN POTASSIUM 100 MG TAB PO SCH (09:00)
[2020-12-12] MEDS: CEFTRIAXONE 1 GM in SODIUM CHLORIDE 0.9% 50ML 50 ML IV SCH (09:00)
[2020-12-12 09:34] LABS: BASOPHILS # (AUTO) 0.1 (0.0-0.1); BASOPHILS % 0.7 % (0.0-1.0); EOSINOPHILS # (AUTO) 0.3 (0.0-0.4); EOSINOPHILS % 2.6 % (0.0-6.0); HEMOGLOBIN 12.3 g/dL (12.0-16.0); LYMPHOCYTES # (AUTO) 2.8 (1.0-3.2); MEAN CORPUSCULAR HEMOGLOBIN 26.3 pg (28-32); MEAN CORPUSCULAR HGB CONC 30.8 g/dL (31-35); MEAN CORPUSCULAR VOLUME 85.7 fL (81-99); MONOCYTES # (AUTO) 0.6 (0.2-0.8); MONOCYTES % 5.7 % (4.4-11.3); NEUTROPHILS # (AUTO) 7.1 (2.1-6.9); NEUTROPHILS % 63.9 % (38.7-80.0); PLATELET COUNT 301 x10e3/uL (140-360); RED BLOOD COUNT 4.67 x10e6/uL (3.6-5.1); RED CELL DISTRIBUTION WIDTH 18.6 % (11.7-14.4)
[2020-12-12 09:51] LABS: ANION GAP 13.4 mmol/L (8-16); CALCIUM 8.1 mg/dL (8.4-10.2); CREATININE, SERUM 0.72 mg/dL (0.57-1.11); POTASSIUM 3.4 mmol/L (3.5-5.1)
[2020-12-12] MEDS: MONTELUKAST SODIUM 10 MG TAB PO SCH (20:47)
[2020-12-12] MEDS: ATORVASTATIN 10 MG TAB PO SCH (20:47)
[2020-12-13] VITALS: BP 150/74
[2020-12-13] MEDS: ALBUTEROL/IPRATROPIUM 3 ML NEB NEB SCH ×2 (00:47→07:23)
[2020-12-13 04:00] VITALS: BP 131/71
[2020-12-13] MEDS: BUDESONIDE/FORMOTEROL 160/4.5MCG INHALER INH SCH (07:35)
[2020-12-13 07:47] VITALS: BP 131/71
[2020-12-13 07:50] VITALS: BP 133/68
[2020-12-13] MEDS: PANTOPRAZOLE SOD 40 MG TABEC PO SCH (09:55)
[2020-12-13] MEDS: CEFTRIAXONE 1 GM in SODIUM CHLORIDE 0.9% 50ML 50 ML IV SCH (09:55)
[2020-12-13] MEDS: AMLODIPINE BESYLATE 10 MG TAB PO SCH (09:55)
[2020-12-13] MEDS: LOSARTAN POTASSIUM 100 MG TAB PO SCH (09:55)
[2020-12-13] MEDS: METOPROLOL TARTRATE 25 MG TAB PO SCH (09:55)
[2020-12-13] MEDS ORDERED: TESSALON PERLE100 MG PO (10:15)
[2020-12-13] MEDS ORDERED: PROAIR HFA INH8.5 GM INH (10:16)
[2020-12-13] MEDS ORDERED: PREDNISONE5 MG PO (10:17)
[2020-12-13] MEDS ORDERED: AZITHROMYCIN 250 MG TAB PO SCH (17:00)
== END 2020-12-13 10:43 | disposition home or self-care (01) | DRG 871 ==
LOC: ER 21:58 → ERHOLD 12-08 01:46 → MED/SURG2 12-08 14:42
PROVIDERS: ADMIT Internal Medicine; ATTEND Internal Medicine
DX: A41.9 Sepsis, unspecified organism (principal); J18.9 Pneumonia, unspecified organism; N39.0 Urinary tract infection, site not specified; E87.2 Acidosis; J45.901 Unspecified asthma with (acute) exacerbation; I10 Essential (primary) hypertension; Z86.73 Personal history of transient ischemic attack (TIA), and cerebral infarction without residual deficits; Z87.891 Personal history of nicotine dependence; Z88.8 Allergy status to other drugs, medicaments and biological substances; Z91.041 Radiographic dye allergy status; R65.20 Severe sepsis without septic shock; E86.0 Dehydration; Z20.822 Contact with and (suspected) exposure to COVID-19
CPT/HCPCS: 36415; 71045; 71250; 76705; 78597; 80048; 80053; 81001; 82150; 82550; 82553; 83605; 83690; 84484; 85025; 85379; 85610; 85730; 87040; 93005; 94640; 96361; 99251; 99285; J0456; J0500; J0696; J1170; J1650; J2270; J2405; J2920; J2930; J3370; J7030; J7040; J7050; U0002

== ENCOUNTER → 2021-08-11 | Day surgery (SDC) | payer MEDICARE, OTHER ==
[~2021-08-11] MED LIST changes: +FENTANYL CITRATE/PF 100MCG/2 ML INJ ONE; +LIDOCAINE HCL 2% LOCAL INJ 5 ML SDV VIAL INJ ONE; +METOCLOPRAMIDE HCL 10 MG/2ML VIAL ONE; +MIDAZOLAM HCL 2 MG/2 ML VIAL ONE; +PREDNISONE5 MG PO; +PROAIR HFA INH8.5 GM INH; +PROPOFOL IV EMULSION 10 MG/ML 20 ML VIAL ONE; +TESSALON PERLE100 MG PO
[2021-08-11 06:21] LABS: BASOPHILS # (AUTO) 0.1 (0.0-0.1); BASOPHILS % 0.8 % (0.0-1.0); EOSINOPHILS # (AUTO) 0.6 (0.0-0.4); EOSINOPHILS % 6.2 % (0.0-6.0); HEMATOCRIT 41.2 % (34.2-44.1); HEMOGLOBIN 13.2 g/dL (12.0-16.0); LYMPHOCYTES # (AUTO) 3.6 (1.0-3.2); LYMPHOCYTES % 35.7 % (18.0-39.1); MEAN CORPUSCULAR HEMOGLOBIN 27.7 pg (28-32); MEAN CORPUSCULAR VOLUME 86.4 fL (81-99); MONOCYTES # (AUTO) 0.7 (0.2-0.8); MONOCYTES % 6.8 % (4.4-11.3); NEUTROPHILS % 50.3 % (38.7-80.0); PLATELET COUNT 391 x10e3/uL (140-360); RED BLOOD COUNT 4.77 x10e6/uL (3.6-5.1); RED CELL DISTRIBUTION WIDTH 18.3 % (11.7-14.4)
[2021-08-11 09:00] VITALS: BP 160/82
== END | disposition home or self-care (01) ==
LOC: OR 05:38
PROVIDERS: ATTEND Internal Medicine Gastroenterology
DX: K29.70 Gastritis, unspecified, without bleeding (principal); K31.7 Polyp of stomach and duodenum; K20.90 Esophagitis, unspecified without bleeding; K44.9 Diaphragmatic hernia without obstruction or gangrene; K21.9 Gastro-esophageal reflux disease without esophagitis; Z71.3 Dietary counseling and surveillance; J45.909 Unspecified asthma, uncomplicated; E11.9 Type 2 diabetes mellitus without complications; I10 Essential (primary) hypertension; E78.5 Hyperlipidemia, unspecified; Z88.8 Allergy status to other drugs, medicaments and biological substances; Z91.041 Radiographic dye allergy status; Z20.822 Contact with and (suspected) exposure to COVID-19; Z79.899 Other long term (current) drug therapy; Z68.30 Body mass index [BMI] 30.0-30.9, adult; Z86.73 Personal history of transient ischemic attack (TIA), and cerebral infarction without residual deficits
CPT/HCPCS: 36415; 43239; 85025; 93005; C9113; J2001; J2250; J2704; J2765; J3010; U0002

== ENCOUNTER 2024-07-29 16:44 | Inpatient (IN) | payer MEDICARE, OTHER ==
[~2024-07-29] VITALS: Ht 149.9 cm; Wt 73.5 kg
[~2024-07-29 16:44] MED LIST changes: -FENTANYL CITRATE/PF 100MCG/2 ML INJ ONE; -LIDOCAINE HCL 2% LOCAL INJ 5 ML SDV VIAL INJ ONE; -METOCLOPRAMIDE HCL 10 MG/2ML VIAL ONE; -MIDAZOLAM HCL 2 MG/2 ML VIAL ONE; +ONDANSETRON ODT4 MG PO; +PREDNISONE20 MG PO; -PROPOFOL IV EMULSION 10 MG/ML 20 ML VIAL ONE; +ULTRAM 50MG50 MG PO
[2024-07-29 17:29] VITALS: PULSE 87; RESP 18; TEMP 98.2
[2024-07-29] MEDS: ONDANSETRON HCL INJ 2MG/ML 2ML 2 MG/ML VIAL IV STA (17:48)
[2024-07-29] MEDS: Morphine 4mg INJECTION 4 MG/ML INJ IV STA (17:49)
[2024-07-29] MEDS: SODIUM CHLORIDE 0.9% 1000ML 1,000 ML IV STA (17:49)
[2024-07-29] MEDS: METHYLPREDNISOLONE SOD SUCC 125 MG/2ML VIAL IV STA (17:49)
[2024-07-29 17:54] LABS: BASOPHILS # (AUTO) 0.1 (0.0-0.1); EOSINOPHILS # (AUTO) 0.4 (0.0-0.4); EOSINOPHILS % 4.2 % (0.0-6.0); HEMATOCRIT 43.1 % (34.2-44.1); HEMOGLOBIN 13.8 g/dL (12.0-16.0); LYMPHOCYTES % 35.6 % (18.0-39.1); MEAN CORPUSCULAR HEMOGLOBIN 27.4 pg (28-32); MEAN CORPUSCULAR VOLUME 85.7 fL (81-99); MONOCYTES # (AUTO) 0.6 (0.2-0.8); MONOCYTES % 6.6 % (4.4-11.3); NEUTROPHILS # (AUTO) 4.4 (2.1-6.9); NEUTROPHILS % 52.1 % (38.7-80.0); PLATELET COUNT 381 x10e3/uL (140-360); RED BLOOD COUNT 5.03 x10e6/uL (3.6-5.1); RED CELL DISTRIBUTION WIDTH 15.3 % (11.7-14.4); WHITE BLOOD COUNT 8.34 x10e3/uL (4.8-10.8)
[2024-07-29 18:02] LABS: INR 0.85; PROTHROMBIN TIME 12.1 seconds (11.9-14.5)
[2024-07-29 18:03] LABS: PARTIAL THROMBOPLASTIN TIME 26.6 seconds (23.8-35.5)
[2024-07-29 18:13] LABS: ALANINE AMINOTRANSFERASE 24 IU/L (0-55); ALBUMIN 4.1 g/dL (3.5-5.0); ALKALINE PHOSPHATASE 119 IU/L (40-150); ANION GAP 16.5 mmol/L (8-16); BILIRUBIN,TOTAL 0.4 mg/dL (0.2-1.2); BLOOD UREA NITROGEN 11 mg/dL (7-26); BUN/CREATININE RATIO 16 (6-25); CALCIUM 9.2 mg/dL (8.4-10.2); CARBON DIOXIDE 24 mmol/L (22-29); CHLORIDE 105 mmol/L (98-107); CREATINE KINASE 49 IU/L (29-168); CREATININE, SERUM 0.69 mg/dL (0.57-1.11); EST GLOMERULAR FILTRATION RATE 92 ML/MIN (>=60); GLUCOSE 146 mg/dL (74-118); LIPASE 38 U/L (8-78); MAGNESIUM 2.2 MG/DL (1.3-2.1); POTASSIUM 3.5 mmol/L (3.5-5.1); SODIUM 142 mmol/L (136-145); TOTAL PROTEIN 8.1 g/dL (6.5-8.1)
[2024-07-29 18:20] LABS: TROPONIN I < 0.001 ng/mL (0-0.300)
[2024-07-29] MEDS: KETOROLAC TROMETHAMINE 30 MG/ML VIAL IV STA (19:00)
[2024-07-29 19:39] LABS: CORONAVIRUS COVID-19 AG NEGATIVE (NEGATIVE); INFLUENZA A AG NEGATIVE (NEGATIVE); INFLUENZA B AG NEGATIVE (NEGATIVE)
[2024-07-29] MEDS: SODIUM CHLORIDE 0.9% 1000ML 1,000 ML IV SCH (20:38)
[2024-07-29] MEDS ORDERED: KETOROLAC TROMETHAMINE 30 MG/ML VIAL IV PRN (20:45)
[2024-07-29 21:35] VITALS: BP 120/53; PULSE 73; RESP 20; TEMP 97.8; O2SAT 99
[2024-07-29 22:00] VITALS: BP 120/53; PULSE 73; RESP 20; TEMP 97.8; O2SAT 99
[2024-07-30] VITALS (9 sets, daily range): BP systolic 117–136; BP diastolic 53–71; PULSE 73–104; RESP 16–22; TEMP 97.5–98; O2SAT 95–100
[2024-07-30] MEDS ORDERED: KETOROLAC TROMETHAMINE 30 MG/ML VIAL IV PRN ×2 (01:00→09:30)
[2024-07-30] MEDS: Morphine 4mg INJECTION 4 MG/ML INJ IV PRN (02:02)
[2024-07-30] MEDS: ONDANSETRON HCL INJ 2MG/ML 2ML 2 MG/ML VIAL IV PRN (02:03)
[2024-07-30 06:43] LABS: BASOPHILS % 0.2 % (0.0-1.0); HEMATOCRIT 39.4 % (34.2-44.1); HEMOGLOBIN 12.5 g/dL (12.0-16.0); LYMPHOCYTES # (AUTO) 1.1 (1.0-3.2); LYMPHOCYTES % 5.6 % (18.0-39.1); MEAN CORPUSCULAR HEMOGLOBIN 27.8 pg (28-32); MEAN CORPUSCULAR HGB CONC 31.7 g/dL (31-35); MEAN CORPUSCULAR VOLUME 87.6 fL (81-99); MONOCYTES # (AUTO) 0.9 (0.2-0.8); MONOCYTES % 4.3 % (4.4-11.3); NEUTROPHILS # (AUTO) 18.4 (2.1-6.9); NEUTROPHILS % 89.5 % (38.7-80.0); PLATELET COUNT 326 x10e3/uL (140-360); RED CELL DISTRIBUTION WIDTH 15.4 % (11.7-14.4); WHITE BLOOD COUNT 20.52 x10e3/uL (4.8-10.8)
[2024-07-30 06:58] LABS: ALBUMIN 3.6 g/dL (3.5-5.0); ALBUMIN/GLOBULIN RATIO 1.2 (0.8-2.0); ANION GAP 15.7 mmol/L (8-16); BILIRUBIN,TOTAL 0.3 mg/dL (0.2-1.2); CALCIUM 8.1 mg/dL (8.4-10.2); CREATININE, SERUM 0.7 mg/dL (0.57-1.11); POTASSIUM 3.7 mmol/L (3.5-5.1); TOTAL PROTEIN 6.7 g/dL (6.5-8.1)
[2024-07-30 06:59] LABS: CREATINE KINASE 38 IU/L (29-168)
[2024-07-30 07:04] LABS: TROPONIN I < 0.001 ng/mL (0-0.300)
[2024-07-30] MEDS ORDERED: ALBUTEROL/IPRATROPIUM 3 ML NEB NEB PRN (09:30)
[2024-07-30] MEDS ORDERED: BENZONATATE 100 MG CAP PO PRN (09:30)
[2024-07-30] MEDS ORDERED: ONDANSETRON HCL INJ 2MG/ML 2ML 2 MG/ML VIAL IV PRN ×2 (09:30→10:30)
[2024-07-30] MEDS: PANTOPRAZOLE SOD 40 MG TABEC PO SCH (10:10)
[2024-07-30] MEDS ORDERED: ACETAMINOPHEN 325 MG TAB PO PRN (10:30)
[2024-07-30] MEDS ORDERED: DEXTROSE 50% SYRINGE 50 ML IV PRN (10:30)
[2024-07-30] MEDS: ALBUTEROL/IPRATROPIUM 3 ML NEB NEB SCH (10:41)
[2024-07-30] MEDS: BUDESONIDE/FORMOTEROL 160/4.5MCG INHALER INH SCH (10:41)
[2024-07-30] MEDS: FUROSEMIDE INJ 10 MG/ML 4 ML VIAL IV ONE (10:59)
[2024-07-30] MEDS: INSULIN LISPRO 100 UNIT/1 ML 3ML VIAL SQ SCH (12:25)
[2024-07-30 13:11] LABS: BAND NEUTROPHILS % (MANUAL) 19 %; BASOPHILS % (MANUAL) 1 % (0-1.5); LYMPHOCYTES % (MANUAL) 6 % (19-48); MONOCYTES % (MANUAL) 2 % (3.4-9.0); NEUTROPHILS % (MANUAL) 72 % (40-74); PLATELET ESTIMATE ADEQUATE; PLATELET MORPHOLOGY COMMENT NORMAL; RBC MORPHOLOGY COMMENT NORMAL
[2024-07-30 15:41] LABS: CREATINE KINASE 48 IU/L (29-168)
[2024-07-30 15:47] LABS: TROPONIN I < 0.001 ng/mL (0-0.300)
[2024-07-30] MEDS: METOPROLOL TARTRATE 25 MG TAB PO SCH (16:54)
[2024-07-30] MEDS: MONTELUKAST SODIUM 10 MG TAB PO SCH (21:12)
[2024-07-30] MEDS: METHYLPREDNISOLONE SOD SUCC 40 MG/ML VIAL 1ML IV SCH (21:12)
[2024-07-30] MEDS: ATORVASTATIN 40 MG TAB PO SCH (21:12)
[2024-07-31] VITALS (12 sets, daily range): BP systolic 120–140; BP diastolic 52–61; PULSE 68–96; RESP 16–22; TEMP 97.7–98; O2SAT 95–100
[2024-07-31 05:42] LABS: BASOPHILS % 0.1 % (0.0-1.0); EOSINOPHILS % 0.1 % (0.0-6.0); HEMATOCRIT 35.2 % (34.2-44.1); HEMOGLOBIN 11.3 g/dL (12.0-16.0); LYMPHOCYTES # (AUTO) 1.6 (1.0-3.2); MEAN CORPUSCULAR HEMOGLOBIN 27.7 pg (28-32); MEAN CORPUSCULAR HGB CONC 32.1 g/dL (31-35); MEAN CORPUSCULAR VOLUME 86.3 fL (81-99); MONOCYTES # (AUTO) 0.3 (0.2-0.8); MONOCYTES % 1.8 % (4.4-11.3); NEUTROPHILS # (AUTO) 12.5 (2.1-6.9); NEUTROPHILS % 85.2 % (38.7-80.0); PLATELET COUNT 292 x10e3/uL (140-360); RED BLOOD COUNT 4.08 x10e6/uL (3.6-5.1); RED CELL DISTRIBUTION WIDTH 15.8 % (11.7-14.4); WHITE BLOOD COUNT 14.67 x10e3/uL (4.8-10.8)
[2024-07-31 06:17] LABS: MAGNESIUM 1.9 MG/DL (1.3-2.1); PHOSPHORUS 2.9 MG/DL (2.3-4.7)
[2024-07-31 06:33] LABS: ANION GAP 16.3 mmol/L (8-16); CALCIUM 8.4 mg/dL (8.4-10.2); CREATININE, SERUM 0.74 mg/dL (0.57-1.11); POTASSIUM 4.3 mmol/L (3.5-5.1)
[2024-07-31 06:38] LABS: THYROID STIMULATING HORMONE 0.236 uIU/mL (0.350-4.940)
[2024-07-31] MEDS: AMLODIPINE BESYLATE 10 MG TAB PO SCH (07:52)
[2024-07-31] MEDS: LOSARTAN POTASSIUM 25 MG TAB PO SCH (07:53)
[2024-07-31] MEDS: ACETAMINOPHEN 325 MG TAB PO PRN (08:01)
[2024-07-31] MEDS: TRIAMCINOLONE 0.1% OINTMENT 15 GM TUBE TP SCH (21:00)
[2024-07-31] MEDS: METHYLPREDNISOLONE SOD SUCC 40 MG/ML VIAL 1ML IV SCH (21:03)
[2024-08-01 01:17] VITALS: PULSE 76; RESP 18; O2SAT 96
[2024-08-01 03:08] VITALS: BP 110/49; PULSE 87; RESP 16; TEMP 98.1; O2SAT 97
[2024-08-01 06:58] LABS: BASOPHILS % 0.2 % (0.0-1.0); EOSINOPHILS % 0.2 % (0.0-6.0); HEMATOCRIT 36.5 % (34.2-44.1); HEMOGLOBIN 11.7 g/dL (12.0-16.0); LYMPHOCYTES # (AUTO) 1.7 (1.0-3.2); LYMPHOCYTES % 10.6 % (18.0-39.1); MEAN CORPUSCULAR HEMOGLOBIN 27.9 pg (28-32); MEAN CORPUSCULAR HGB CONC 32.1 g/dL (31-35); MEAN CORPUSCULAR VOLUME 86.9 fL (81-99); MONOCYTES # (AUTO) 0.5 (0.2-0.8); MONOCYTES % 2.9 % (4.4-11.3); NEUTROPHILS # (AUTO) 13.5 (2.1-6.9); PLATELET COUNT 320 x10e3/uL (140-360); RED CELL DISTRIBUTION WIDTH 15.9 % (11.7-14.4); WHITE BLOOD COUNT 16.28 x10e3/uL (4.8-10.8)
[2024-08-01 07:16] VITALS: PULSE 81; RESP 18; O2SAT 96
[2024-08-01 07:24] LABS: ANION GAP 18.1 mmol/L (8-16); CALCIUM 8.6 mg/dL (8.4-10.2); CREATININE, SERUM 0.77 mg/dL (0.57-1.11); POTASSIUM 4.1 mmol/L (3.5-5.1)
[2024-08-01 07:46] VITALS: BP 110/49; PULSE 81; RESP 16; TEMP 98.1; O2SAT 96
[2024-08-01 08:28] VITALS: BP 132/52; PULSE 83; RESP 18; TEMP 97.9; O2SAT 99
== END 2024-08-01 11:45 | disposition home or self-care (01) | DRG 202 ==
LOC: ER 17:26 → ERHOLD 20:37 → MED/SURG3 22:00 → OBSVTOIN 07-30 10:28
PROVIDERS: ADMIT Internal Medicine; ATTEND Internal Medicine
DX: J45.901 Unspecified asthma with (acute) exacerbation (principal); J18.9 Pneumonia, unspecified organism; I31.39 Other pericardial effusion (noninflammatory); I10 Essential (primary) hypertension; R07.89 Other chest pain; E78.5 Hyperlipidemia, unspecified; I08.1 Rheumatic disorders of both mitral and tricuspid valves; E11.65 Type 2 diabetes mellitus with hyperglycemia; Z79.84 Long term (current) use of oral hypoglycemic drugs; T38.0X5A Adverse effect of glucocorticoids and synthetic analogues, initial encounter; Y92.230 Patient room in hospital as the place of occurrence of the external cause; E66.9 Obesity, unspecified; Z68.32 Body mass index [BMI] 32.0-32.9, adult; Z11.52 Encounter for screening for COVID-19; Z79.899 Other long term (current) drug therapy
CPT/HCPCS: 36415; 71045; 71250; 80048; 80053; 82550; 82948; 83036; 83690; 83735; 84100; 84443; 84484; 85025; 85379; 85610; 85730; 93005; 93306; 94640; 94799; 99284; G0378; J1885; J1940; J2270; J2405; J2543; J2919; J7030